=== PATIENT | male | born 1965 | race Two or more races ===

== ENCOUNTER 2020-06-26 09:28 | Outpatient (REF) | payer MEDICAID, SELFPAY ==
--- NOTE | 2020-06-26 09:36 | XR_ITS ---
EXAMINATION: XR SHOULDER, LEFT CLINICAL INFORMATION: Bicipital tendinitis. Shoulder pain. COMPARISON: None. TECHNIQUE: Left shoulder is imaged in 4 views. FINDINGS: There is no fracture or dislocation or destructive process. The glenohumeral joint is normal. The acromioclavicular alignment is normal. There are no visible rotator cuff calcifications. Again, there is a small spur anterior oblique medial humeral neck possibly related to the inferior glenohumeral ligament attachment. IMPRESSION: No acute abnormality when compared with prior study 10/08/2017. No visible rotator cuff calcifications.
--- NOTE | 2020-06-26 09:37 | XR_ITS ---
EXAMINATION: XR ELBOW, LEFT CLINICAL INFORMATION: Pain. COMPARISON: None. TECHNIQUE: AP, lateral, and oblique views of the left elbow. FINDINGS: There is no fracture, dislocation, or elbow capsular effusion. There is normal bony mineralization. No joint narrowing or erosive change. There is small medial epicondylar spur and borderline spurring coronoid process and olecranon. IMPRESSION: 1. No joint narrowing or erosive change. No visible capsular effusion. 2. Small spur medial epicondyle. Borderline spurring olecranon and coronoid.
== END 2020-06-26 09:29 | disposition home or self-care (01) ==
LOC: HO.XRAY 09:28
PROVIDERS: Visit Provider Family Medicine
DX: M75.22 Bicipital tendinitis, left shoulder (principal); M25.522 Pain in left elbow
CPT/HCPCS: 73030; 73070

== ENCOUNTER 2020-07-24 09:00 | Outpatient (RCR) | payer MEDICAID, SELFPAY | END 2020-08-16 13:33 | disposition other institution (70) | LOC: HO.PT 09:00 | PROVIDERS: PCP Emergency Medicine; Visit Provider Family Medicine | DX: M75.22 Bicipital tendinitis, left shoulder (principal) | CPT/HCPCS: 20610; 97033; 97110; 97112; 97140; 97162; 99202; J1040 ==

== ENCOUNTER 2020-07-29 15:27 | Outpatient (REF) | payer MEDICAID, SELFPAY | END 2020-07-29 15:28 | disposition home or self-care (01) | LOC: HO.LAB 15:27 | PROVIDERS: Visit Provider Internal Medicine | DX: Z20.828 Contact with and (suspected) exposure to other viral communicable diseases (principal) | CPT/HCPCS: C9803; U0003 ==

== ENCOUNTER 2021-03-25 10:27 | Emergency (ER) | payer MEDICAID, SELFPAY ==
[2021-03-25 11:12] VITALS: BP 141/83; PULSE 70; RESP 18; O2SAT 98; BMI 34.4
[2021-03-25] MEDS: Ketorolac Tromethamine 15 MG/ML VIAL IM ×2 (12:22→12:23)
[2021-03-25] MEDS: Acetaminophen 325 MG TABLET 650 MG PO (12:22)
[2021-03-25] MEDS: Lidocaine 4 % Patch ADH..PATCH 1 PATCH TRANSDERMA (12:22)
--- NOTE | 2021-03-25 12:29 | ED.BACK ---
HPI - Back Pain/Injury General Chief Complaint: Back Pain/Injury Stated Complaint: Rt side rib pain Time Seen by Provider: 03/25/21 11:56 Source: patient Mode of arrival: ambulatory History of Present Illness HPI Narrative: 55-year-old male with a past medical history of anxiety, depression, diabetes, hypertension, presenting to the ED complaining of right flank pain x2 days. Admits pain is worse with movement. Denies known injury/trauma or fall. Denies radiation of pain, dysuria/hematuria, numbness, tingling, weakness, urinary incontinence/retention Denies taking anything for pain at home MD elicited complaint: back pain Related Data Home Medications Medication Instructions Recorded Confirmed clotrimazole 1 % topical cream 1 applic TOPICAL BID 07/24/20 diclofenac sodium 1 % topical gel 2 g TOPICAL QID 07/24/20 docusate sodium 100 mg capsule 100 mg PO DAILY 07/24/20 ketotifen fumarate 0.025 % (0.035 1 drp OPHTHALMIC (EYE) BID 07/24/20 %) eye drops lidocaine 1.8 % topical patch 1 patch TOPICAL DAILY 07/24/20 lisinopril 10 1 tab PO DAILY 07/24/20 mg-hydrochlorothiazide 12.5 mg tablet metformin 500 mg tablet 500 mg PO DAILY 07/24/20 sertraline 100 mg tablet 100 mg PO DAILY 07/24/20 triamcinolone acetonide 0.1 % 1 applic TOPICAL DAILY 07/24/20 topical cream witch luis 20 % topical pads pad TOPICAL 07/24/20 Previous Rx's Medication Instructions Recorded aspirin 81 mg tablet,delayed 81 mg PO DAILY 90 Days #90 tab 02/10/21 release acetaminophen [Tylenol Extra 500 mg PO Q6H PRN #20 tab 03/25/21 Strength] cyclobenzaprine 5 mg PO Q8H PRN 5 Days #14 tab 03/25/21 lidocaine [Lidoderm] 1 patch TOPICAL DAILY PRN #30 ea 03/25/21 MDD remove after 12 hours naproxen 500 mg PO BID PRN 10 Days #20 tab 03/25/21 Allergies Allergy/AdvReac Type Severity Reaction Status Date / Time Penicillins [PENICILLINS] Allergy Intermediate RASH Verified 07/24/20 10:28 penicillin G Allergy Unknown rash Verified 07/24/20 10:28 Review of Systems Review of Systems: Constitutional: No Fever, No Chills, No Fatigue, No Malaise Cardiovascular: No Chest Pain, No SOB Gastrointestinal: No Nausea, No Vomiting, No Diarrhea, No Abdominal pain Genitourinary: No Dysuria, No Urinary Frequency, No Hematuria, No Urinary Incontinence/retention, + Flank Pain, No Urinary Flow Changes, No Hesitancy Musculoskeletal: + joint pain, No Myalgias, No Joint Swelling Skin: No Skin Lesions, No rash Neuro: No Weakness, No Numbness, No Paresthesias Yes all other systems are reviewed and are negative Neurologic: Denies Sensory deficit (Neuro) [facility] Past Medical History Attestation statement: The following information was validated with the patient. Medical History (Updated 03/25/21 @ 13:17 by ELHAM Chapa) Anxiety C. difficile colitis Depression Diabetes HTN (hypertension) Intertrigo Social History Social History (Updated 07/24/20 @ 10:32 by Isela Blancas PA-C) Advance Directives: Yes Advance Directives Information Provided: No Advance Directives on File: No Current occupational status: unemployed Current occupation: rt handed Physical Exam Vital Signs: Vital Signs: Last Vital Signs Pulse 70 03/25/21 11:12 Resp 18 03/25/21 11:12 BP 141/83 H 03/25/21 11:12 Pulse Ox 98 03/25/21 11:12 Body Mass Index 34.4 Const: General: cooperative, healthy appearing and no acute distress Orientation/consciousness: patient oriented x3 Limitations: no limitations HENMT: Head: Yes normal to inspection Ears: hearing grossly normal bilaterally General nose exam: Normal external nose present Face and sinus: Yes normal facial exam Eyes: General: appearance normal, both eyes and all related structures EOM: EOMs intact bilaterally Neck: Neck: Yes normal visual inspection Resp: Effort & Inspection: normal respiratory effort and no respiratory distress Cardio: Rate: regular rate GI: Inspection: Yes normal to inspection Palpation (GI): Soft to palpation, nontender, no guarding and not rigid : General: Yes CVA tenderness on the right Back/Spine/Pelvis: Other: No midline thoracic/lumbar spinous tenderness. + right-sided thoracic/lumbar MSK tenderness to palpation Skin: Rashes: no rashes Wounds: no wounds Neuro: Other: Ambulating with steady gait, strength intact throughout, no saddle anesthesia General: patient oriented x3 Gait exam (Neuro): Normal gait present Motor exam (neuro): 5/5 motor strength present throughout Sensory Exam: No Sensory deficit (Neuro) Extrem: General: Yes normal to inspection Course Course Course Narrative: -UA unremarkable. Pain likely musculoskeletal, results discussed with patient including worrisome signs and symptoms and strict return precautions, verbalized understanding feel safe for discharge home to follow-up with his primary care doctor MDM - Back Pain/Injury MDM Narrative Medical decision making narrative: 55-year-old male with a past medical history of anxiety, depression, diabetes, hypertension, presenting to the ED complaining of right flank pain x2 days. On exam VSS, NAD/well-appearing, no midline spinous tenderness throughout, no red flag symptoms, abdomen soft/nontender, +R CVAT on exam. Concern for MSK pain vs ? renal stone vs pyelo/UTI. Unlikely PE/PNA Plan: UA, symptomatic treatment, reassess Medical Records Attestation: I reviewed the patient's medical records. Lab Data Labs: Lab Results 03/25/21 Range/Units 12:21 Urine Color YELLOW Urine Appearance CLEAR Urine pH 6.0 (5.0-8.0) Ur Specific [place] >= 1.030 H (1.005-1.025) Urine Protein NEG (NEG-TRACE) MG/DL Urine Glucose (UA) NEG (NEG) MG/DL Urine Ketones NEG (NEG) MG/DL Urine Blood NEG (NEG) Urine Nitrite NEG (NEG) Ur Leukocyte Esterase NEG (NEG) Discharge Plan Discharge Clinical Impression: Thoracic back pain Qualifiers: Chronicity: acute Back pain laterality: right Qualified Code(s): M54.6 - Pain in thoracic spine Patient Disposition: Home, Self-Care Instructions: Back Pain (ED) Additional Instructions: Your urine was unremarkable Your pain is likely musculoskeletal Flexeril is a muscle relaxer, take at night as it makes you drowsy, do not drive, drink alcohol, or operate machinery while taking it Naproxen as an anti-inflammatory / pain medication, take with food Lidoderm patches are numbing patches, apply to painful area In addition take Tylenol at home If symptoms persist or worsen, pain becomes unbearable, you developed urinary retention or incontinence, or weakness return to the ED Prescriptions: New acetaminophen [Tylenol Extra Strength] 500 mg tablet 500 mg PO Q6H PRN (Reason: pain or fever) Qty: 20 RF: 0 lidocaine [Lidoderm] 5 % adhesive patch,medicated 1 patch topical DAILY MDD remove after 12 hours PRN (Reason: pain) Qty: 30 RF: 0 naproxen 500 mg tablet 500 mg PO BID PRN (Reason: pain) 10 Days Qty: 20 RF: 0 cyclobenzaprine 5 mg tablet 5 mg PO Q8H PRN (Reason: pain (scale score 7-10)) 5 Days Qty: 14 RF: 0 No Action aspirin [Adult Low Dose Aspirin] 81 mg tablet,delayed release (DR/EC) 81 mg PO DAILY 90 Days Qty: 90 RF: 1 Referrals: Physician,Unknown [Primary Care Provider] - 3 days
[2021-03-25 12:31] LABS: Glucose Urine UA NEG (NEG); Leukocyte Esterase Urine NEG (NEG); Nitrite Urine NEG (NEG); Specific Gravity - Urine >= 1.030 (1.005-1.025); Urine Blood NEG (NEG); Urine Ketones NEG (NEG); Urine Protein NEG (NEG-TRACE)
[2021-03-25 12:33] LABS: Appearance Urine CLEAR; Color Urine YELLOW
== END 2021-03-25 13:23 | disposition home or self-care (01) ==
PROVIDERS: Physician Assistant; Emergency Provider Emergency Medicine
DX: M54.6 Pain in thoracic spine (principal); E11.9 Type 2 diabetes mellitus without complications; I10 Essential (primary) hypertension; Z79.84 Long term (current) use of oral hypoglycemic drugs; Z79.899 Other long term (current) drug therapy
CPT/HCPCS: 81003; 96372; 99283; 99284; J1885

== ENCOUNTER 2021-06-19 14:23 | Emergency (ER) | payer MEDICAID, SELFPAY ==
--- NOTE | ~2021-06-19 | CT_ITS ---
EXAMINATION: CT ABDOMEN AND PELVIS WITH CONTRAST CLINICAL INFORMATION: Right lower quadrant pain. COMPARISON: No similar priors. TECHNIQUE: Multidetector volumetric images were obtained from the superior aspect of the liver through the pubic symphysis following administration 100 mL of Omnipaque 350 intravenous contrast. Sagittal and coronal reformatted images were obtained on the technologist's workstation. Oral contrast: No This CT examination was performed using dose optimization techniques as appropriate, variously including the following: *Automated exposure control *Adjustment of mA and/or kV according to patient size (this includes techniques or standardized protocols for targeted exams where dose is matched to indication/reason for exam; i.e. extremities or head) *Use of iterative reconstruction technique DLP: 776 mGy-cm FINDINGS: LUNG BASES: Mild dependent atelectases and mosaic attenuation of the parenchyma suggesting some degree of air trapping. No focal consolidation or pleural effusion. Mild cardiomegaly. LIVER, GALLBLADDER, AND BILIARY TREE: The attenuation of liver parenchyma is significantly decreased when compared to the attenuation of the spleen, suggesting hepatic steatosis. The liver is otherwise normal in size and shape. There are no focal liver lesions. There is no biliary ductal without dilatation. The gallbladder is unremarkable. PANCREAS: No focal abnormalities. The main pancreatic duct is nondilated. No significant peripancreatic free fluid or fat stranding. SPLEEN: Unremarkable. ADRENAL GLANDS: Unremarkable. KIDNEYS AND URETERS: In the upper pole of the right kidney there is a 1.1 cm simple cyst (61:6). There are a few other bilateral hypodensities that are too small to characterize although statistically are also likely to represent simple cysts and do not require further workup; one of these cysts has a thin peripheral calcification (image 34 of series 3) classified as Bosniak 2 and not requiring further workup. No solid lesions. No renal calculi or hydronephrosis. No significant perinephric fat stranding.. BLADDER: The wall of the urinary bladder appears slightly thickened and trabeculated, likely sequela of chronic outlet obstruction. No focal abnormalities. No significant perivesical fat stranding. GASTROINTESTINAL TRACT: The distal colon is underdistended which limits assessment wall thickening. However, accounting for these limitations there is suggestion of very mild wall thickening and subtle fat stranding in the sigmoid colon around several diverticuli raising the possibility of acute uncomplicated diverticulitis. There is no bowel obstruction. The appendix is unremarkable. There is a small hiatal hernia. The stomach and the small bowel are nondilated. ABDOMINAL WALL: Tiny fat-containing umbilical and inguinal hernias. LYMPH NODES: A few prominent inguinal lymph nodes bilaterally are uncertain significance and likely reactive. No abdominopelvic lymphadenopathy by size criteria. VASCULAR: Scattered atherosclerotic disease of the abdominal aorta which is of normal caliber. PELVIC VISCERA: Mild prostatomegaly. OSSEOUS STRUCTURES: No acute or aggressive osseous abnormalities. Multilevel generative changes. CT/CT abdomen pelvis w con IMPRESSION: Very mild fat stranding and wall thickening of the sigmoid colon surrounding several diverticuli, most consistent with mild acute uncomplicated diverticulitis. No free air or bowel obstruction. Small hiatal hernia. Normal appendix. Hepatic steatosis.
[2021-06-19 14:28] VITALS: BP 150/93; PULSE 78; RESP 18; TEMP 36.3; O2SAT 96; BMI 41.7
--- NOTE | 2021-06-19 15:38 | PC.NURSE ---
Plan for admission reviewed with PT. No active bleeding from rectum. Pt has not had a BM since arrival to the ED. VSS. Pt appears comfortable at this time. Awaiting orders from the hospitalist for guidance on diet plans.
--- NOTE | 2021-06-19 15:57 | ED.ABDPAIN ---
HPI - Abdominal Pain General Chief Complaint: Abdominal Pain Stated Complaint: RLQ pain Time Seen by Provider: 06/19/21 15:55 History of Present Illness HPI narrative: 55-year-old male presents today with having abdominal pain in the right lower quadrant. Nonradiating. The pain is been ongoing for about 3 days. No fever no chills. Positive decrease in appetite. No history of abdominal surgery in the past. No history kidney stone. Patient feel like he is urinating a lot. Patient denies coughing, congestion, upper respiratory symptoms. No leg swelling. No chest pain. No shortness breath no diaphoresis. The pain is dull in nature nonradiating Related Data Home Medications Medication Instructions Recorded Confirmed clotrimazole 1 % topical cream 1 applic TOPICAL BID 07/24/20 diclofenac sodium 1 % topical gel 2 g TOPICAL QID 07/24/20 (Arthritis Pain (diclofenac)) docusate sodium 100 mg capsule 100 mg PO DAILY 07/24/20 (Colace) ketotifen fumarate 0.025 % (0.035 1 drp OPHTHALMIC (EYE) BID 07/24/20 %) eye drops ([place]) lidocaine 1.8 % topical patch 1 patch TOPICAL DAILY 07/24/20 lisinopril 10 1 tab PO DAILY 07/24/20 mg-hydrochlorothiazide 12.5 mg tablet metformin 500 mg tablet 500 mg PO DAILY 07/24/20 sertraline 100 mg tablet 100 mg PO DAILY 07/24/20 triamcinolone acetonide 0.1 % 1 applic TOPICAL DAILY 07/24/20 topical cream witch ulis 20 % topical pads pad TOPICAL 07/24/20 (Preparation H (Witch Luis)) Previous Rx's Medication Instructions Recorded aspirin 81 mg tablet,delayed 81 mg PO DAILY 90 Days #90 tab 02/10/21 release (Adult Low Dose Aspirin) acetaminophen 500 mg tablet 500 mg PO Q6H PRN #20 tab 03/25/21 (Tylenol Extra Strength) cyclobenzaprine 5 mg tablet 5 mg PO Q8H PRN 5 Days #14 tab 03/25/21 lidocaine 5 % topical patch 1 patch TOPICAL DAILY PRN #30 ea 03/25/21 (Lidoderm) MDD remove after 12 hours naproxen 500 mg tablet 500 mg PO BID PRN 10 Days #20 tab 03/25/21 amoxicillin 875 mg-potassium 1 tab PO BID 10 Days #20 tab 06/19/21 clavulanate 125 mg tablet (Augmentin) Allergies Allergy/AdvReac Type Severity Reaction Status Date / Time Penicillins [PENICILLINS] Allergy Intermediate RASH Verified 07/24/20 10:28 penicillin G Allergy Unknown rash Verified 07/24/20 10:28 Review of Systems Review of Systems No fever no chills no cough no congestion or upper respiratory symptoms. No diaphoresis. 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 Oriented X3. No acute distress. Eyes: Pupils equal, round and reactive to light. ENT: Pharynx normal. Neck: Normal inspection. Neck supple. No lymph nodes noted. No crepitus CVS: Normal heart rate and rhythm. Pulses normal. Normal S1 and S2 Respiratory: No respiratory distress. Breath sounds normal. No Wheezing. No rales Abdomen: Soft and nontender. No rigidity. No distention. good BS x4 Skin: Skin warm and dry. Normal skin color. Normal skin turgor. Extremities: No lower extremity edema. Neurovascular intact to all extremities. No Lacerations. No Rash Neuro: Oriented X 3. No motor deficit. No sensory deficit. Moving all extermities. No slurred speech MDM - Abdominal Pain MDM Narrative Medical decision making narrative: White count is normal. Urine showed no signs of infection. CT scan of the abdomen positive for very mild diverticulitis. Will give patient Augmentin. Will have patient follow-up on an outpatient basis. In stable condition. There is multiple cysts noted in the kidney will require follow-up on an outpatient basis. The finding was discussed with patient. No abscess no perforation noted on the CT scan Lab Data Result diagrams: 06/19/21 16:44 06/19/21 16:44 Labs: Lab Results 06/19/21 06/19/21 06/19/21 Range/Units 16:38 16:44 16:44 WBC 8.0 (4.8-10.8) X10*3/uL RBC 5.38 (4.60-5.80) X10*6/uL Hgb 14.8 (14.0-18.0) g/dl Hct 46.0 (42-52) % MCV 85.5 (80-98) fL MCH 27.5 (27.0-33.0) pg MCHC 32.2 (31.0-36.0) g/dl RDW 12.9 (11.0-16.0) % Plt Count 202 (160-400) X10*3/uL MPV 12.2 (9.4-12.4) fL Immature Gran % (Auto) 0.3 (0.0-0.4) % Neut % (Auto) 66.2 (45-73) % Lymph % (Auto) 24.0 (20-40) % Edgar % (Auto) 8.2 (2-11) % Eos % (Auto) 0.8 (0-4) % Baso % (Auto) 0.5 (0-2) % Lymph # (Auto) 1.9 (1.2-4.9) X10*3/uL Edgar # (Auto) 0.7 (0.1-1.2) X10*3/uL Eos # (Auto) 0.1 (0.0-0.4) X10*3/uL Baso # (Auto) 0.0 (0.0-0.2) X10*3/uL Abs Immat Gran (auto) 0.02 (0.00-0.03) X10*3/uL Absolute Neuts (auto) 5.3 (2.0-8.3) X10*3/uL Absolute Nucleated RBC 0.000 (0.0-0.012) X10*3/uL Nucleated RBC % (auto) 0.0 (0.0-0.2) /100WBC Sodium 141 (135-145) mmol/L Potassium 3.9 (3.3-5.1) mmol/L Chloride 106 (96-108) mmol/L Carbon Dioxide 26 (22-29) mmol/L Anion Gap 13 (12-20) BUN 12 (9-16) mg/dL Creatinine 0.87 (0.5-1.4) mg/dL Estim Creat Clear Calc 110.5 Estimated GFR > 60 Random Glucose 97 (60-115) mg/dL Calcium 9.7 (8.4-10.2) mg/dL Total Bilirubin 0.3 (0.0-1.0) mg/dL Direct Bilirubin 0.2 (0.0-0.5) mg/dL AST 26 (5-37) U/L ALT 41 H (0-40) U/L Alkaline Phosphatase 80 (39-117) U/L Total Protein 7.7 (6.5-8.0) g/dL Albumin 4.6 (3.5-5.0) g/dL Lipase 27 (8-78) U/L Urine Color YELLOW Urine Appearance CLEAR Urine pH 6.0 (5.0-8.0) Ur Specific [place] >= 1.030 H (1.005-1.025) Urine Protein NEG (NEG-TRACE) MG/DL Urine Glucose (UA) NEG (NEG) MG/DL Urine Ketones NEG (NEG) MG/DL Urine Blood NEG (NEG) Urine Nitrite NEG (NEG) Ur Leukocyte Esterase NEG (NEG) Discharge Plan Discharge Clinical Impression: Diverticulitis Patient Disposition: Home, Self-Care Additional Instructions: Multiple cyst was noted in your right kidney. Follow-up required. Please discussed the finding with your primary physician. Prescriptions: New amoxicillin-pot clavulanate [Augmentin] 875-125 mg tablet 1 tab PO BID 10 Days Qty: 20 RF: 0 No Action aspirin [Adult Low Dose Aspirin] 81 mg tablet,delayed release (DR/EC) 81 mg PO DAILY 90 Days Qty: 90 RF: 1 acetaminophen [Tylenol Extra Strength] 500 mg tablet 500 mg PO Q6H PRN (Reason: pain or fever) Qty: 20 RF: 0 lidocaine [Lidoderm] 5 % adhesive patch,medicated 1 patch topical DAILY MDD remove after 12 hours PRN (Reason: pain) Qty: 30 RF: 0 naproxen 500 mg tablet 500 mg PO BID PRN (Reason: pain) 10 Days Qty: 20 RF: 0 cyclobenzaprine 5 mg tablet 5 mg PO Q8H PRN (Reason: pain (scale score 7-10)) 5 Days Qty: 14 RF: 0 Referrals: [facility] [Primary Care Provider] - 2 days [facility] Past Medical History Medical History Anxiety C. difficile colitis Depression Diabetes HTN (hypertension) Intertrigo Social History Social History Advance Directives: No Current occupational status: unemployed Current occupation: rt handed
[2021-06-19 16:00] VITALS: BP 145/92; PULSE 67; RESP 16; TEMP 36.6; O2SAT 97
[2021-06-19 16:48] LABS: MANUAL DIFF FLAG NO
[2021-06-19 16:50] LABS: Appearance Urine CLEAR; Color Urine YELLOW; Glucose Urine UA NEG (NEG); Leukocyte Esterase Urine NEG (NEG); Nitrite Urine NEG (NEG); Specific Gravity - Urine >= 1.030 (1.005-1.025); Urine Blood NEG (NEG); Urine Ketones NEG (NEG); Urine Protein NEG (NEG-TRACE)
[2021-06-19 16:57] LABS: Basophils Percent Auto 0.5 % (0-2); Eosinophils Absolute Auto 0.1 X10*3/uL (0.0-0.4); Eosinophils Percent Auto 0.8 % (0-4); Hemoglobin 14.8 g/dl (14.0-18.0); Imm Gran Abs Auto 0.02 X10*3/uL (0.00-0.03); Imm Gran Pct Auto 0.3 % (0.0-0.4); Lymphocytes Absolute Auto 1.9 X10*3/uL (1.2-4.9); Mean Corpuscular HGB Conc 32.2 g/dl (31.0-36.0); Mean Corpuscular Hemoglobin 27.5 pg (27.0-33.0); Mean Corpuscular Volume 85.5 fL (80-98); Mean Platelet Volume 12.2 fL (9.4-12.4); Monocytes Absolute Auto 0.7 X10*3/uL (0.1-1.2); Monocytes Percent Auto 8.2 % (2-11); Neutrophils Absolute Auto 5.3 X10*3/uL (2.0-8.3); Neutrophils Percent Auto 66.2 % (45-73); Platelet Count 202 X10*3/uL (160-400); Red Blood Count 5.38 X10*6/uL (4.60-5.80); Red Cell Distribution Width 12.9 % (11.0-16.0)
[2021-06-19] MEDS: HYDROmorphone HCl 0.5 MG/0.5 ML SYRINGE IVPUSH (17:04)
[2021-06-19] MEDS: ondansetron HCL 4 MG/2 ML VIAL IVPUSH (17:04)
[2021-06-19 17:06] LABS: Alanine Aminotransferase 41 U/L (0-40); Albumin Level 4.6 g/dL (3.5-5.0); Alkaline Phosphatase 80 U/L (39-117); Anion Gap 13 (12-20); Aspartate Amino Transferase 26 U/L (5-37); Bilirubin Direct 0.2 mg/dL (0.0-0.5); Bilirubin Total 0.3 mg/dL (0.0-1.0); Blood Urea Nitrogen 12 mg/dL (9-16); Calcium 9.7 mg/dL (8.4-10.2); Carbon Dioxide 26 mmol/L (22-29); Chloride 106 mmol/L (96-108); Creatinine Clr Calc Pharmacy 110.5; Estimated Glomerular Filt Rate > 60; Glucose Random 97 mg/dL (60-115); Lipase 27 U/L (8-78); Potassium 3.9 mmol/L (3.3-5.1); Sodium 141 mmol/L (135-145); Total Protein 7.7 g/dL (6.5-8.0)
[2021-06-19] MEDS: iohexoL 350 MG/ML 100 ML INFUS..BTL IV (17:27)
[2021-06-19] MEDS: Amoxicillin/Potassium Clav 875 MG TABLET PO (18:43)
[2021-06-19 18:51] VITALS: BP 160/96; PULSE 76; TEMP 36.6; O2SAT 99
== END 2021-06-19 18:57 | disposition home or self-care (01) ==
PROVIDERS: Emergency Provider Emergency Medicine Emergency Medical Services
DX: K57.92 Diverticulitis of intestine, part unspecified, without perforation or abscess without bleeding (principal); I10 Essential (primary) hypertension; E11.9 Type 2 diabetes mellitus without complications; Z88.0 Allergy status to penicillin
CPT/HCPCS: 36415; 51798; 74177; 80048; 80076; 81003; 83690; 85025; 96374; 96375; 99284; J1170; J2405; Q9967

== ENCOUNTER → 2021-08-28 12:42 | Outpatient (REF) | payer MEDICAID, SELFPAY | LOC: HO.SL 12:42 | PROVIDERS: Visit Provider Registered Nurse | DX: G47.33 Obstructive sleep apnea (adult) (pediatric) (principal); R06.83 Snoring; R40.0 Somnolence; E66.01 Morbid (severe) obesity due to excess calories | CPT/HCPCS: 95806 ==

== ENCOUNTER 2021-09-08 12:38 | Outpatient (REF) | payer MEDICAID, SELFPAY ==
[2021-09-08 13:44] LABS: Binax Internal Control QC Valid; Binax Lot number: 9864; Binax Now Covid-19 Ag Positive (Negative)
== END 2021-09-08 12:39 | disposition home or self-care (01) ==
LOC: HO.LAB 12:38
PROVIDERS: Visit Provider Internal Medicine
DX: Z20.822 Contact with and (suspected) exposure to COVID-19 (principal)
CPT/HCPCS: 36415; C9803

== ENCOUNTER 2022-01-12 15:12 | Emergency (ER) | payer MEDICAID, SELFPAY ==
--- NOTE | 2022-01-12 | ECG_ITS ---
Test Reason : CHEST PAIN Blood Pressure : / mmHG Vent. Rate : 086 BPM Atrial Rate : 086 BPM P-R Int : 150 ms QRS Dur : 098 ms QT Int : 380 ms P-R-T Axes : 046 -31 014 degrees QTc Int : 454 ms Normal sinus rhythm Left axis deviation Minimal voltage criteria for LVH, may be normal variant ( R in aVL ) Cannot rule out Anterior infarct (cited on or before 11-JUN-2018) Abnormal ECG When compared with ECG of 11-JUN-2018 17:13, T wave inversion no longer evident in Anterior leads Referred By: Generic ED Physician Electronically Signed By:PEARL RODRIGUES MD
--- NOTE | ~2022-01-12 | CT_ITS ---
EXAMINATION: CT ABDOMEN AND PELVIS WITHOUT CONTRAST CLINICAL INFORMATION: Epigastric pain. COMPARISON: CT of the abdomen and pelvis done on 06/19/2021. TECHNIQUE: Multidetector volumetric imaging was performed from the superior aspect of the liver through the pubic symphysis. Sagittal and coronal reformatted images were obtained on the technologist's workstation. This CT examination was performed using dose optimization techniques as appropriate, variously including the following: *Automated exposure control *Adjustment of mA and/or kV according to patient size (this includes techniques or standardized protocols for targeted exams where dose is matched to indication/reason for exam; i.e. extremities or head) *Use of iterative reconstruction technique DLP: 720 mGy-cm FINDINGS: LUNG BASES: The visualized lung bases are unremarkable. LIVER, GALLBLADDER, AND BILIARY TREE: The liver is normal in size, shape, and attenuation. No focal hepatic lesion or biliary ductal dilatation is present. The gallbladder is unremarkable with no evidence of radiopaque gallstones, gallbladder wall thickening, or obvious pericholecystic inflammatory changes. PANCREAS: Evaluation is technically limited due to lack of intravenous contrast. No definite pancreatic or peripancreatic inflammatory changes identified on this nonenhanced study. No significant change. SPLEEN: Unremarkable. ADRENAL GLANDS: Unremarkable. KIDNEYS AND URETERS: The kidneys are normal in size, shape, and attenuation. No hydronephrosis, hydroureter, or calculi seen. No perinephric stranding. BLADDER: Unremarkable. GASTROINTESTINAL TRACT: Colonic diverticulosis related changes are noted within the descending and sigmoid colon without any CT features of superimposed acute diverticulitis. The appendix is visualized and is unremarkable. The small bowel loops are decompressed. The stomach is decompressed. Small sliding hiatal hernia is present. ABDOMINAL WALL: No significant hernia is appreciated. LYMPH NODES: No pathologically enlarged lymphadenopathy, unchanged. VASCULAR: Unremarkable. PELVIC VISCERA: There is no pelvic mass present. No evidence of any free fluid and/or free air. OSSEOUS STRUCTURES: Multilevel degenerative disc disease, unchanged. Extensive facet degenerative arthritic changes are noted at L5-S1, unchanged. CT/CT abdomen pelvis wo con IMPRESSION: 1. No CT evidence of any acute intra-abdominal and/or intrapelvic pathology is present. 2. Specifically, no CT evidence of any acute pancreatitis is present on this nonenhanced study. 3. Small sliding hiatal hernia.
--- NOTE | ~2022-01-12 | XR_ITS ---
EXAMINATION: XR CHEST CLINICAL INFORMATION: Chest pain. COMPARISON: None TECHNIQUE: Frontal view of the chest was obtained. FINDINGS: No significant abnormality is noted involving the heart, lungs, mediastinum, bony thorax or soft tissues. XR/XR chest 1V IMPRESSION: Unremarkable examination.
[2022-01-12 15:20] VITALS: BP 141/87; PULSE 82; RESP 20; TEMP 36.4; O2SAT 98; BMI 36.0
[2022-01-12 15:38] LABS: MANUAL DIFF FLAG NO
[2022-01-12 15:44] VITALS: BP 128/86; RESP 75; TEMP 38.1; O2SAT 99
[2022-01-12 15:45] VITALS: BP 128/86; PULSE 75; RESP 20; TEMP 38.1; O2SAT 96
--- NOTE | 2022-01-12 15:45 | ED_ITS ---
HPI - Chest Pain General Chief Complaint: Chest Pain Stated Complaint: Chest pain Time Seen by Provider: 01/12/22 15:44 Source: patient Mode of arrival: ambulatory Limitations: no limitations History of Present Illness MD complaint: chest pain Onset (ago): hour(s) (10am today ) Timing of current episode: constant Prior episodes: Yes Onset: during rest Pain location: substernal and left chest Pain radiation: none Severity: moderate Quality: aching, heaviness and other (also has body aches) Relieving factors: nothing Exacerbating factors: palpation and movement Context: other (overall doesn't fell well has body aches, nauseated, weakness, very dizzy) Associated symptoms: nausea, vomiting, dyspnea, fever and cough Treatment prior to arrival: none Related Data Home Medications Medication Instructions Recorded Confirmed clotrimazole 1 % topical cream 1 applic TOPICAL BID 07/24/20 diclofenac sodium 1 % topical gel 2 g TOPICAL QID 07/24/20 (Arthritis Pain (diclofenac)) docusate sodium 100 mg capsule 100 mg PO DAILY 07/24/20 (Colace) ketotifen fumarate 0.025 % (0.035 1 drp OPHTHALMIC (EYE) BID 07/24/20 %) eye drops ([place]) lidocaine 1.8 % topical patch 1 patch TOPICAL DAILY 07/24/20 lisinopril 10 1 tab PO DAILY 07/24/20 mg-hydrochlorothiazide 12.5 mg tablet metformin 500 mg tablet 500 mg PO DAILY 07/24/20 sertraline 100 mg tablet 100 mg PO DAILY 07/24/20 triamcinolone acetonide 0.1 % 1 applic TOPICAL DAILY 07/24/20 topical cream witch luis 20 % topical pads pad TOPICAL 07/24/20 (Preparation H (Witch Luis)) Previous Rx's Medication Instructions Recorded acetaminophen 500 mg tablet 500 mg PO Q6H PRN #20 tab 03/25/21 (Tylenol Extra Strength) cyclobenzaprine 5 mg tablet 5 mg PO Q8H PRN 5 Days #14 tab 03/25/21 lidocaine 5 % topical patch 1 patch TOPICAL DAILY PRN #30 ea 03/25/21 (Lidoderm) MDD remove after 12 hours naproxen 500 mg tablet 500 mg PO BID PRN 10 Days #20 tab 03/25/21 amoxicillin 875 mg-potassium 1 tab PO BID 10 Days #20 tab 06/19/21 clavulanate 125 mg tablet (Augmentin) aspirin 81 mg tablet,delayed 81 mg PO DAILY 90 Days #90 tab 10/13/21 release (Adult Low Dose Aspirin) Allergies Allergy/AdvReac Type Severity Reaction Status Date / Time Penicillins [PENICILLINS] Allergy Intermediate RASH Verified 07/24/20 10:28 penicillin G Allergy Unknown rash Verified 07/24/20 10:28 Review of Systems Review of Systems: Constitutional : No Weight loss, pos Fever, pos Chills, pos fatigue, pos malaise ENT/Mouth : No sore throat, No Rhinorrhea Eyes: No Eye Pain, No Swelling Cardiovascular : pos Chest Pain, pos SOB, no Dyspnea on Exertion, No Orthopnea, No Edema, No Palpitations Respiratory : No Cough, No Sputum Gastrointestinal : pos Nausea, No Vomiting, No Diarrhea, No abdominal Pain, No Hematochezia, No Melena Genitourinary : No Dysuria, No Urinary Frequency Musculoskeletal : No joint pain, No Myalgias, No Joint Swelling Skin : No Skin Lesions, No rash Neuro : pos Weakness, No Numbness, pos Dizziness, No Headache Psych : No Anxiety/Panic, No Depression Heme/Lymph: No Bruising, No Lymphadenopathy Endocrine : No Polyuria, No Polydipsia All other systems reviewed and are negative [facility] Past Medical History Attestation statement: The following information was validated with the patient. Medical History Anxiety C. difficile colitis Depression Diabetes HTN (hypertension) Intertrigo Social History Social History Advance Directives: No Advance Directives Information Provided: No Current occupational status: unemployed Current occupation: rt handed Physical Exam Vital Signs: Vital Signs: Last Vital Signs Temp 98.8 F 01/12/22 18:32 Pulse 72 01/12/22 18:32 Resp 16 01/12/22 18:32 BP 129/85 01/12/22 18:32 Pulse Ox 96 01/12/22 15:45 BMI result Body Mass Index 36.0 Appearance: Alert. Oriented X3. No acute distress. Eyes: Pupils equal, round and reactive to light. ENT: Pharynx normal. Neck: Normal inspection. Neck supple. CVS: Normal heart rate and rhythm. Pulses normal. Chest: ttp along anterior chest wall reproduces pain Respiratory: No respiratory distress. Breath sounds normal. Abdomen: Soft and mild epigastric ttp no rebound or guarding Skin: Skin warm and dry. Normal skin color. Normal skin turgor. Extremities: No lower extremity edema. No calf ttp Neuro: Oriented X 3. No motor deficit. No sensory deficit. Course Course Course Narrative: lipase elevated, added on IVF, morphine for pain, CT scan for pancreatitis, LDH, ethanol repeat trop negative lipase decreased, no acute findings on CT scan ddimer negative patient up and walking feels better MDM - Chest Pain MDM Narrative Medical decision making narrative: 56 yo male with hx of HTN, DM, HLD here with c/o overall not feeling well. Patient is c/o body aches, chills, dizziness and epigastric chest pain - found to have fever here. At this time labs, troponin x 2. EKG, UA, CXR for pneumonia ordered. Swabs for COVID and flu ordered. Symptoms seem atypical for ACS and more viral in nature he already had COVID back in September dispo per results and findings. Lab Data Result diagrams: 01/12/22 15:30 01/12/22 15:30 Labs: Lab Results 01/12/22 01/12/22 01/12/22 Range/Units 15:30 15:30 15:30 WBC 9.5 (4.8-10.8) X10*3/uL RBC 5.05 (4.60-5.80) X10*6/uL Hgb 14.0 (14.0-18.0) g/dl Hct 43.5 (42.0-52.0) % MCV 86.1 (80.0-98.0) fL MCH 27.7 (27.0-33.0) pg MCHC 32.2 (31.0-36.0) g/dl RDW 12.9 (11.0-16.0) % Plt Count 257 (160-400) X10*3/uL MPV 12.3 (9.4-12.4) fL Immature Gran % (Auto) 0.6 H (0.0-0.4) % Neut % (Auto) 72.5 (45-73) % Lymph % (Auto) 16.0 L (20-40) % [place] % (Auto) 8.4 (2-11) % Eos % (Auto) 2.0 (0-4) % Baso % (Auto) 0.5 (0-2) % Lymph # (Auto) 1.5 (1.2-4.9) X10*3/uL [place] # (Auto) 0.8 (0.1-1.2) X10*3/uL Eos # (Auto) 0.2 (0.0-0.4) X10*3/uL Baso # (Auto) 0.1 (0.0-0.2) X10*3/uL Abs Immat Gran (auto) 0.06 H (0.00-0.03) X10*3/uL Absolute Neuts (auto) 6.9 (2.0-8.3) x10*3/uL Absolute Nucleated RBC 0.000 (0.0-0.012) X10*3/uL Nucleated RBC % (auto) 0.0 (0.0-0.2) /100WBC PT (9.9-13.0) SEC INR (0.9-1.1) D-Dimer High Sensitivty NG/ML Sodium 140 (135-145) mmol/L Potassium 4.8 D (3.3-5.1) mmol/L Chloride 105 (96-108) mmol/L Carbon Dioxide 26 (22-29) mmol/L Anion Gap 14 (12-20) BUN 14 (9-16) mg/dL Creatinine 0.85 (0.5-1.4) mg/dL Estim Creat Clear Calc 114.3 Estimated GFR > 60 Random Glucose 117 H (60-115) mg/dL Lactic Acid (0.5-2.0) mmol/L Calcium 9.9 (8.4-10.2) mg/dL Total Bilirubin 0.3 (0.0-1.0) mg/dL Direct Bilirubin < 0.2 (0.0-0.5) mg/dL AST 21 (5-37) U/L ALT 27 (0-40) U/L Alkaline Phosphatase 103 D (39-117) U/L Lactate Dehydrogenase 183 (118-273) U/L Troponin I High Sens < 3.5 (<3.5-35.0) ng/L Total Protein 8.1 H (6.5-8.0) g/dL Albumin 4.6 (3.5-5.0) g/dL Lipase 361 H (8-78) U/L Ethyl Alcohol mg/dL COVID-19 (DINAH) (Negative) COVID-19 Clin Com Influenza Type A (LAVONNE) (Negative) Influenza Type B (LAVONNE) (Negative) Influenza A & B Note 01/12/22 01/12/22 01/12/22 Range/Units 16:13 16:13 16:46 WBC (4.8-10.8) X10*3/uL RBC (4.60-5.80) X10*6/uL Hgb (14.0-18.0) g/dl Hct (42.0-52.0) % MCV (80.0-98.0) fL MCH (27.0-33.0) pg MCHC (31.0-36.0) g/dl RDW (11.0-16.0) % Plt Count (160-400) X10*3/uL MPV (9.4-12.4) fL Immature Gran % (Auto) (0.0-0.4) % Neut % (Auto) (45-73) % Lymph % (Auto) (20-40) % [place] % (Auto) (2-11) % Eos % (Auto) (0-4) % Baso % (Auto) (0-2) % Lymph # (Auto) (1.2-4.9) X10*3/uL [place] # (Auto) (0.1-1.2) X10*3/uL Eos # (Auto) (0.0-0.4) X10*3/uL Baso # (Auto) (0.0-0.2) X10*3/uL Abs Immat Gran (auto) (0.00-0.03) X10*3/uL Absolute Neuts (auto) (2.0-8.3) x10*3/uL Absolute Nucleated RBC (0.0-0.012) X10*3/uL Nucleated RBC % (auto) (0.0-0.2) /100WBC PT (9.9-13.0) SEC INR (0.9-1.1) D-Dimer High Sensitivty NG/ML Sodium (135-145) mmol/L Potassium (3.3-5.1) mmol/L Chloride (96-108) mmol/L Carbon Dioxide (22-29) mmol/L Anion Gap (12-20) BUN (9-16) mg/dL Creatinine (0.5-1.4) mg/dL Estim Creat Clear Calc Estimated GFR Random Glucose (60-115) mg/dL Lactic Acid (0.5-2.0) mmol/L Calcium (8.4-10.2) mg/dL Total Bilirubin (0.0-1.0) mg/dL Direct Bilirubin (0.0-0.5) mg/dL AST (5-37) U/L ALT (0-40) U/L Alkaline Phosphatase (39-117) U/L Lactate Dehydrogenase (118-273) U/L Troponin I High Sens (<3.5-35.0) ng/L Total Protein (6.5-8.0) g/dL Albumin (3.5-5.0) g/dL Lipase (8-78) U/L Ethyl Alcohol < 10 mg/dL COVID-19 (DINAH) Negative (Negative) COVID-19 Clin Com See Note Influenza Type A (LAVONNE) Negative (Negative) Influenza Type B (LAVONNE) Negative (Negative) Influenza A & B Note See Note 01/12/22 01/12/22 01/12/22 Range/Units 16:47 16:47 18:11 WBC (4.8-10.8) X10*3/uL RBC (4.60-5.80) X10*6/uL Hgb (14.0-18.0) g/dl Hct (42.0-52.0) % MCV (80.0-98.0) fL MCH (27.0-33.0) pg MCHC (31.0-36.0) g/dl RDW (11.0-16.0) % Plt Count (160-400) X10*3/uL MPV (9.4-12.4) fL Immature Gran % (Auto) (0.0-0.4) % Neut % (Auto) (45-73) % Lymph % (Auto) (20-40) % [place] % (Auto) (2-11) % Eos % (Auto) (0-4) % Baso % (Auto) (0-2) % Lymph # (Auto) (1.2-4.9) X10*3/uL [place] # (Auto) (0.1-1.2) X10*3/uL Eos # (Auto) (0.0-0.4) X10*3/uL Baso # (Auto) (0.0-0.2) X10*3/uL Abs Immat Gran (auto) (0.00-0.03) X10*3/uL Absolute Neuts (auto) (2.0-8.3) x10*3/uL Absolute Nucleated RBC (0.0-0.012) X10*3/uL Nucleated RBC % (auto) (0.0-0.2) /100WBC PT 12.3 (9.9-13.0) SEC INR 1.1 (0.9-1.1) D-Dimer High Sensitivty < 150 NG/ML Sodium (135-145) mmol/L Potassium (3.3-5.1) mmol/L Chloride (96-108) mmol/L Carbon Dioxide (22-29) mmol/L Anion Gap (12-20) BUN (9-16) mg/dL Creatinine (0.5-1.4) mg/dL Estim Creat Clear Calc Estimated GFR Random Glucose (60-115) mg/dL Lactic Acid 1.7 (0.5-2.0) mmol/L Calcium (8.4-10.2) mg/dL Total Bilirubin (0.0-1.0) mg/dL Direct Bilirubin (0.0-0.5) mg/dL AST (5-37) U/L ALT (0-40) U/L Alkaline Phosphatase (39-117) U/L Lactate Dehydrogenase (118-273) U/L Troponin I High Sens < 3.5 (<3.5-35.0) ng/L Total Protein (6.5-8.0) g/dL Albumin (3.5-5.0) g/dL Lipase (8-78) U/L Ethyl Alcohol mg/dL COVID-19 (DINAH) (Negative) COVID-19 Clin Com Influenza Type A (LAVONNE) (Negative) Influenza Type B (LAVONNE) (Negative) Influenza A & B Note 05/09/22 Range/Units 18:11 WBC (4.8-10.8) X10*3/uL RBC (4.60-5.80) X10*6/uL Hgb (14.0-18.0) g/dl Hct (42.0-52.0) % MCV (80.0-98.0) fL MCH (27.0-33.0) pg MCHC (31.0-36.0) g/dl RDW (11.0-16.0) % Plt Count (160-400) X10*3/uL MPV (9.4-12.4) fL Immature Gran % (Auto) (0.0-0.4) % Neut % (Auto) (45-73) % Lymph % (Auto) (20-40) % [place] % (Auto) (2-11) % Eos % (Auto) (0-4) % Baso % (Auto) (0-2) % Lymph # (Auto) (1.2-4.9) X10*3/uL [place] # (Auto) (0.1-1.2) X10*3/uL Eos # (Auto) (0.0-0.4) X10*3/uL Baso # (Auto) (0.0-0.2) X10*3/uL Abs Immat Gran (auto) (0.00-0.03) X10*3/uL Absolute Neuts (auto) (2.0-8.3) x10*3/uL Absolute Nucleated RBC (0.0-0.012) X10*3/uL Nucleated RBC % (auto) (0.0-0.2) /100WBC PT (9.9-13.0) SEC INR (0.9-1.1) D-Dimer High Sensitivty NG/ML Sodium (135-145) mmol/L Potassium (3.3-5.1) mmol/L Chloride (96-108) mmol/L Carbon Dioxide (22-29) mmol/L Anion Gap (12-20) BUN (9-16) mg/dL Creatinine (0.5-1.4) mg/dL Estim Creat Clear Calc Estimated GFR Random Glucose (60-115) mg/dL Lactic Acid (0.5-2.0) mmol/L Calcium (8.4-10.2) mg/dL Total Bilirubin (0.0-1.0) mg/dL Direct Bilirubin (0.0-0.5) mg/dL AST (5-37) U/L ALT (0-40) U/L Alkaline Phosphatase (39-117) U/L Lactate Dehydrogenase (118-273) U/L Troponin I High Sens (<3.5-35.0) ng/L Total Protein (6.5-8.0) g/dL Albumin (3.5-5.0) g/dL Lipase 177 H (8-78) U/L Ethyl Alcohol mg/dL COVID-19 (DINAH) (Negative) COVID-19 Clin Com Influenza Type A (LAVONNE) (Negative) Influenza Type B (LAVONNE) (Negative) Influenza A & B Note ECG Data ECG #1: Attestation: I personally reviewed and interpreted this ECG as follows: ECG interpretation date: 01/12/22 ECG interpretation time: 15:51 Interpretation: Rate: 86 Rhythm: NSR [place]: left, LVH Normal P waves. Normal GARCIA. Normal QRS complex. ST T wave : no JONNY, nonspecific qTC: normal prior studies: no acute ischemia - unchanged 2018 The study has been interpreted contemporaneously by me. Discharge Plan Discharge Clinical Impression: Atypical chest pain, Fever Patient Disposition: Home, Self-Care Instructions: Chest Pain (ED), Fever in Adults (ED) Additional Instructions: return to ED for any worsening symptoms or concerns repeat flu and covid testing in 2 days if symptoms persist Prescriptions: No Action aspirin [Adult Low Dose Aspirin] 81 mg tablet,delayed release (DR/EC) 81 mg PO DAILY 90 Days Qty: 90 0RF Rx Instructions: Obtain refills from PCP acetaminophen [Tylenol Extra Strength] 500 mg tablet 500 mg PO Q6H PRN (Reason: pain or fever) Qty: 20 0RF lidocaine [Lidoderm] 5 % adhesive patch,medicated 1 patch topical DAILY MDD remove after 12 hours PRN (Reason: pain) Qty: 30 0RF Rx Instructions: leave on most painful area for up to 12 hrs naproxen 500 mg tablet 500 mg PO BID PRN (Reason: pain) 10 Days Qty: 20 0RF cyclobenzaprine 5 mg tablet 5 mg PO Q8H PRN (Reason: pain (scale score 7-10)) 5 Days Qty: 14 0RF amoxicillin-pot clavulanate [Augmentin] 875-125 mg tablet 1 tab PO BID 10 Days Qty: 20 0RF Referrals: Yolanda Card, [employer] [Primary Care Provider] - 2 days (if not better) Print Language: Lao
[2022-01-12 15:55] LABS: Anion Gap 14 (12-20); Blood Urea Nitrogen 14 mg/dL (9-16); Calcium 9.9 mg/dL (8.4-10.2); Carbon Dioxide 26 mmol/L (22-29); Chloride 105 mmol/L (96-108); Creatinine Clr Calc Pharmacy 114.3; Estimated Glomerular Filt Rate > 60; Glucose Random 117 mg/dL (60-115); Potassium 4.8 mmol/L (3.3-5.1); Sodium 140 mmol/L (135-145)
[2022-01-12 16:00] LABS: Troponin-I High Sensitivity < 3.5 ng/L (<3.5-35.0)
[2022-01-12] MEDS: Acetaminophen 325 MG TABLET 650 MG PO (16:07)
[2022-01-12 16:13] LABS: Basophils Absolute Auto 0.1 X10*3/uL (0.0-0.2); Basophils Percent Auto 0.5 % (0-2); Eosinophils Absolute Auto 0.2 X10*3/uL (0.0-0.4); Hematocrit 43.5 % (42.0-52.0); Imm Gran Abs Auto 0.06 X10*3/uL (0.00-0.03); Imm Gran Pct Auto 0.6 % (0.0-0.4); Lymphocytes Absolute Auto 1.5 X10*3/uL (1.2-4.9); Mean Corpuscular HGB Conc 32.2 g/dl (31.0-36.0); Mean Corpuscular Hemoglobin 27.7 pg (27.0-33.0); Mean Corpuscular Volume 86.1 fL (80.0-98.0); Mean Platelet Volume 12.3 fL (9.4-12.4); Monocytes Absolute Auto 0.8 X10*3/uL (0.1-1.2); Monocytes Percent Auto 8.4 % (2-11); Neutrophils Absolute Auto 6.9 x10*3/uL (2.0-8.3); Neutrophils Percent Auto 72.5 % (45-73); Platelet Count 257 X10*3/uL (160-400); Red Blood Count 5.05 X10*6/uL (4.60-5.80); Red Cell Distribution Width 12.9 % (11.0-16.0); White Blood Count 9.5 X10*3/uL (4.8-10.8)
[2022-01-12 16:18] LABS: Alanine Aminotransferase 27 U/L (0-40); Albumin Level 4.6 g/dL (3.5-5.0); Alkaline Phosphatase 103 U/L (39-117); Aspartate Amino Transferase 21 U/L (5-37); Bilirubin Direct < 0.2 mg/dL (0.0-0.5); Bilirubin Total 0.3 mg/dL (0.0-1.0); Lipase 361 U/L (8-78); Total Protein 8.1 g/dL (6.5-8.0)
[2022-01-12 16:37] LABS: COVID-19 Test Negative (Negative); IDNOW Serial# 16C4AD1C; Influenza A Negative (Negative); Influenza B2 Negative (Negative)
[2022-01-12 16:42] LABS: Lactate Dehydrogenase 183 U/L (118-273)
[2022-01-12 16:59] VITALS: RESP 18
[2022-01-12] MEDS: 0.9 % Sodium Chloride 1,000 ML 999 ML IV (16:59)
[2022-01-12] MEDS: Morphine Sulfate 4 MG/ML CARTRIDGE IVPUSH (16:59)
[2022-01-12] MEDS: ondansetron HCL 4 MG/2 ML VIAL IVPUSH (16:59)
[2022-01-12 17:00] LABS: INTERNATIONAL NORM RATIO 1.1 (0.9-1.1); Prothrombin Time 12.3 SEC (9.9-13.0)
[2022-01-12 17:07] LABS: Lactic Acid 1.7 mmol/L (0.5-2.0)
[2022-01-12 17:08] LABS: Ethanol < 10 mg/dL
[2022-01-12 17:57] LABS: D Dimer High Sensitivity < 150 NG/ML
[2022-01-12 18:31] LABS: Lipase 177 U/L (8-78)
[2022-01-12 18:32] VITALS: BP 129/85; PULSE 72; RESP 16; TEMP 37.1
[2022-01-12 18:35] LABS: Troponin-I High Sensitivity < 3.5 ng/L (<3.5-35.0)
[2022-01-12 19:04] LABS: Appearance Urine CLEAR; Color Urine YELLOW; Glucose Urine UA NEG (NEG); Leukocyte Esterase Urine NEG (NEG); Nitrite Urine NEG (NEG); PH 5.5 (5.0-8.0); Urine Blood NEG (NEG); Urine Ketones NEG (NEG); Urine Protein NEG (NEG-TRACE)
[2022-01-12 19:32] VITALS: BP 128/83; PULSE 68; RESP 18; TEMP 36.9; O2SAT 95
== END 2022-01-12 19:33 | disposition home or self-care (01) ==
PROVIDERS: Emergency Provider Emergency Medicine; PCP Registered Nurse
DX: R07.89 Other chest pain (principal); R50.9 Fever, unspecified; I10 Essential (primary) hypertension; E11.9 Type 2 diabetes mellitus without complications; Z20.822 Contact with and (suspected) exposure to COVID-19
CPT/HCPCS: 36415; 71045; 74176; 80048; 80076; 81003; 82077; 83605; 83615; 83690; 84484; 85025; 85379; 85610; 87040; 87502; 87635; 93005; 96361; 96374; 96375; 99284; 99285; J2270; J2405

== ENCOUNTER → 2022-01-29 10:51 | Outpatient (BNVA) | payer MEDICAID, SELFPAY | PROVIDERS: PCP Registered Nurse; Referring Provider Registered Nurse; Visit Provider Nurse Practitioner | DX: D21.6 Benign neoplasm of connective and other soft tissue of trunk, unspecified (principal); R10.31 Right lower quadrant pain; R10.32 Left lower quadrant pain; K59.04 Chronic idiopathic constipation | CPT/HCPCS: 99202; 99212 ==

== ENCOUNTER 2022-01-29 18:04 | Emergency (ER) | payer MEDICAID, SELFPAY ==
--- NOTE | ~2022-01-29 | XR_ITS ---
EXAMINATION: XR CHEST CLINICAL INFORMATION: Chest pain. COMPARISON: None TECHNIQUE: Frontal view of the chest was obtained. FINDINGS: No significant abnormality is noted involving the heart, lungs, mediastinum, bony thorax or soft tissues. XR/XR chest 1V IMPRESSION: Unremarkable chest examination.
[2022-01-29 18:22] VITALS: BP 139/79; BP 167/90; PULSE 78; PULSE 80; RESP 14; TEMP 36.6; O2SAT 97; BMI 36.9
--- NOTE | 2022-01-29 18:22 | ED_ITS ---
HPI - Chest Pain General Chief Complaint: Chest Pain Stated Complaint: chest pain/back pain Time Seen by Provider: 01/29/22 18:14 Source: patient Mode of arrival: EMS Limitations: no limitations History of Present Illness HPI narrative: this is 56 yo male presented with c/o chest pain and lower back pain,he states that he was carrying a case of water,and experience chest opain with change with movement and lower back pain. Pt has been evaluated in this ED with chest pain on 01/12/22 felt to be atypical .No radiation of the CP,no diaphoresis,reproducible with movement and palpation. MD complaint: chest pain Onset (ago): hour(s) (2) Timing of current episode: still present Pain location: substernal Pain radiation: none Severity: mild Quality: aching Relieving factors: nothing Exacerbating factors: other (movement) Risk Factors Coronary artery disease risk factors: diabetes and hypertension Thoracic aortic dissection risk factors: none Related Data Home Medications Medication Instructions Recorded Confirmed clotrimazole 1 % topical cream 1 applic TOPICAL BID 07/24/20 diclofenac sodium 1 % topical gel 2 g TOPICAL QID 07/24/20 (Arthritis Pain (diclofenac)) docusate sodium 100 mg capsule 100 mg PO DAILY 07/24/20 (Colace) ketotifen fumarate 0.025 % (0.035 1 drp OPHTHALMIC (EYE) BID 07/24/20 %) eye drops (Alaway) lidocaine 1.8 % topical patch 1 patch TOPICAL DAILY 07/24/20 lisinopril 10 1 tab PO DAILY 07/24/20 mg-hydrochlorothiazide 12.5 mg tablet metformin 500 mg tablet 500 mg PO DAILY 07/24/20 sertraline 100 mg tablet 100 mg PO DAILY 07/24/20 triamcinolone acetonide 0.1 % 1 applic TOPICAL DAILY 07/24/20 topical cream witch luis 20 % topical pads pad TOPICAL 07/24/20 (Preparation H (Witch Luis)) amlodipine 10 mg tablet 10 mg PO QAM 01/29/22 aripiprazole 30 mg tablet 30 mg PO BEDTIME 01/29/22 duloxetine 60 mg capsule,delayed 60 mg PO QAM 01/29/22 release mirtazapine 45 mg tablet 45 mg PO BEDTIME 01/29/22 omeprazole 20 mg capsule,delayed 20 mg PO QAM 01/29/22 release rosuvastatin 20 mg tablet 20 mg PO BEDTIME 01/29/22 Previous Rx's Medication Instructions Recorded acetaminophen 500 mg tablet 500 mg PO Q6H PRN #20 tab 03/25/21 (Tylenol Extra Strength) cyclobenzaprine 5 mg tablet 5 mg PO Q8H PRN 5 Days #14 tab 03/25/21 lidocaine 5 % topical patch 1 patch TOPICAL DAILY PRN #30 ea 03/25/21 (Lidoderm) MDD remove after 12 hours naproxen 500 mg tablet 500 mg PO BID PRN 10 Days #20 tab 03/25/21 aspirin 81 mg tablet,delayed 81 mg PO DAILY 90 Days #90 tab 10/13/21 release (Adult Low Dose Aspirin) methylcellulose (laxative) 500 mg 1,000 mg PO DAILY #60 tab 01/29/22 tablet (Citrucel) peg 3350-electrolytes 236 240 ml PO Q10M 1 Days #4000 ml 01/29/22 gram-22.74 gram-6.74 gram-5.86 gram solution (Golytely) sennosides 8.6 mg capsule (senna) 17.2 mg PO BEDTIME 30 Days #60 cap 01/29/22 Allergies Allergy/AdvReac Type Severity Reaction Status Date / Time Penicillins [PENICILLINS] Allergy Intermediate RASH Verified 01/29/22 11:17 penicillin G Allergy Unknown rash Verified 01/29/22 11:17 Review of Systems Review of Systems: Yes Unobtainable due to mental status Constitutional: Constitutional: Reports no additional constitutional complaints ENT: Reports system reviewed and no additional complaints, except as documented Cardiovascular: Cardiovascular: Reports no additional cardiovascular complaints Musculoskeletal: Musculoskeletal: Reports no additional musculoskeletal complaints [facility] Past Medical History Medical History Anxiety C. difficile colitis Depression Diabetes HTN (hypertension) Intertrigo Social History Social History Alcohol intake: former Use of substances other than those prescribed or required for medical reasons: No Advance Directives: No Advance Directives Information Provided: No Current occupational status: unemployed Current occupation: rt handed Physical Exam Vital Signs: Vital Signs: Last Vital Signs Temp 97.8 F 01/29/22 18:34 Pulse 62 01/29/22 21:03 Resp 16 01/29/22 21:03 BP 125/73 01/29/22 21:03 Pulse Ox 96 01/29/22 21:03 BMI result Body Mass Index 36.9 Const: General: cooperative, comfortable, no acute distress, well developed, alert and awake Nutritional Appearance: average body habitus and well nourished Orientation/consciousness: patient oriented x3 Limitations: no limitations HEENT: Head: Yes normal to inspection Ears: hearing grossly normal bilaterally General nose exam: Normal external nose present Face and sinus: Yes normal facial exam Mouth: Normal oral and palatal mucosa present Neck: Neck: Yes normal visual inspection and Yes full ROM Thyroid: Thyroid normal Carotids: normal carotid upstroke Chest: Chest palpation & inspection: normal inspection of the chest Resp: Effort & Inspection: normal respiratory effort Auscultation: clear to auscultation bilaterally Cardio: Jugular venous distension: no JVD Rate: regular rate Rhythm: regular rhythm GI: Inspection: Yes normal to inspection Palpation (GI): not firm, nontender and no guarding Skin: General skin exam: no rashes or lesions noted Lesions: no lesions Rashes: no rashes Neuro: General: patient oriented x3 Cranial nerves: Yes CN's II-XII intact bilaterally Motor exam (neuro): 5/5 motor strength present throughout Extrem: General: Yes normal to inspection, Yes full ROM and Yes capillary refill normal Course Reevaluation(s) Reevaluation #1: delta troponin negative,pain reproducible will d/c pt home to follow up to PCP. MDM - Chest Pain Lab Data Attestation: I reviewed the patient's lab results. Result diagrams: 01/29/22 18:29 01/29/22 18:29 Labs: Lab Results 01/29/22 01/29/22 01/29/22 Range/Units 18:29 18:29 18:29 WBC 6.0 (4.8-10.8) X10*3/uL RBC 4.78 (4.60-5.80) X10*6/uL Hgb 13.0 L (14.0-18.0) g/dl Hct 41.7 L (42.0-52.0) % MCV 87.2 (80.0-98.0) fL MCH 27.2 (27.0-33.0) pg MCHC 31.2 (31.0-36.0) g/dl RDW 13.1 (11.0-16.0) % Plt Count 233 (160-400) X10*3/uL MPV 11.4 (9.4-12.4) fL Immature Gran % (Auto) 0.2 (0.0-0.4) % Neut % (Auto) 53.0 (45-73) % Lymph % (Auto) 25.0 (20-40) % Evangeline % (Auto) 15.9 H (2-11) % Eos % (Auto) 5.2 H (0-4) % Baso % (Auto) 0.7 (0-2) % Lymph # (Auto) 1.5 (1.2-4.9) X10*3/uL Evangeline # (Auto) 1.0 (0.1-1.2) X10*3/uL Eos # (Auto) 0.3 (0.0-0.4) X10*3/uL Baso # (Auto) 0.0 (0.0-0.2) X10*3/uL Abs Immat Gran (auto) 0.01 (0.00-0.03) X10*3/uL Absolute Neuts (auto) 3.2 (2.0-8.3) x10*3/uL Absolute Nucleated RBC 0.000 (0.0-0.012) X10*3/uL Nucleated RBC % (auto) 0.0 (0.0-0.2) /100WBC Sodium 142 (135-145) mmol/L Potassium 4.4 (3.3-5.1) mmol/L Chloride 107 (96-108) mmol/L Carbon Dioxide 27 (22-29) mmol/L Anion Gap 12 (12-20) BUN 9 (9-16) mg/dL Creatinine 0.83 (0.5-1.4) mg/dL Estim Creat Clear Calc 118.6 Estimated GFR > 60 Random Glucose 133 H (60-115) mg/dL Calcium 9.6 (8.4-10.2) mg/dL Total Bilirubin 0.3 (0.0-1.0) mg/dL AST 22 (5-37) U/L ALT 29 (0-40) U/L Alkaline Phosphatase 97 (39-117) U/L Troponin I High Sens < 3.5 (<3.5-35.0) ng/L Total Protein 7.3 (6.5-8.0) g/dL Albumin 4.2 (3.5-5.0) g/dL 01/29/22 Range/Units 21:01 WBC (4.8-10.8) X10*3/uL RBC (4.60-5.80) X10*6/uL Hgb (14.0-18.0) g/dl Hct (42.0-52.0) % MCV (80.0-98.0) fL MCH (27.0-33.0) pg MCHC (31.0-36.0) g/dl RDW (11.0-16.0) % Plt Count (160-400) X10*3/uL MPV (9.4-12.4) fL Immature Gran % (Auto) (0.0-0.4) % Neut % (Auto) (45-73) % Lymph % (Auto) (20-40) % Evangeline % (Auto) (2-11) % Eos % (Auto) (0-4) % Baso % (Auto) (0-2) % Lymph # (Auto) (1.2-4.9) X10*3/uL Evangeline # (Auto) (0.1-1.2) X10*3/uL Eos # (Auto) (0.0-0.4) X10*3/uL Baso # (Auto) (0.0-0.2) X10*3/uL Abs Immat Gran (auto) (0.00-0.03) X10*3/uL Absolute Neuts (auto) (2.0-8.3) x10*3/uL Absolute Nucleated RBC (0.0-0.012) X10*3/uL Nucleated RBC % (auto) (0.0-0.2) /100WBC Sodium (135-145) mmol/L Potassium (3.3-5.1) mmol/L Chloride (96-108) mmol/L Carbon Dioxide (22-29) mmol/L Anion Gap (12-20) BUN (9-16) mg/dL Creatinine (0.5-1.4) mg/dL Estim Creat Clear Calc Estimated GFR Random Glucose (60-115) mg/dL Calcium (8.4-10.2) mg/dL Total Bilirubin (0.0-1.0) mg/dL AST (5-37) U/L ALT (0-40) U/L Alkaline Phosphatase (39-117) U/L Troponin I High Sens < 3.5 (<3.5-35.0) ng/L Total Protein (6.5-8.0) g/dL Albumin (3.5-5.0) g/dL ECG Data ECG #1: Pacemaker model: NSR [address]-t changes Discharge Plan Discharge Clinical Impression: Chest pain Patient Disposition: Home, Self-Care Instructions: Chest Pain (DC) Additional Instructions: follow up with Primary Care physician Tomorrow,return if worse any concern Prescriptions: No Action aspirin [Adult Low Dose Aspirin] 81 mg tablet,delayed release (DR/EC) 81 mg PO DAILY 90 Days Qty: 90 0RF Rx Instructions: Obtain refills from PCP acetaminophen [Tylenol Extra Strength] 500 mg tablet 500 mg PO Q6H PRN (Reason: pain or fever) Qty: 20 0RF lidocaine [Lidoderm] 5 % adhesive patch,medicated 1 patch topical DAILY MDD remove after 12 hours PRN (Reason: pain) Qty: 30 0RF Rx Instructions: leave on most painful area for up to 12 hrs naproxen 500 mg tablet 500 mg PO BID PRN (Reason: pain) 10 Days Qty: 20 0RF cyclobenzaprine 5 mg tablet 5 mg PO Q8H PRN (Reason: pain (scale score 7-10)) 5 Days Qty: 14 0RF metformin 500 mg tablet 500 mg PO DAILY 0RF sertraline 100 mg tablet 100 mg PO DAILY 0RF clotrimazole 1 % cream 1 applic topical BID 0RF triamcinolone acetonide 0.1 % cream 1 applic topical DAILY 0RF docusate sodium [Colace] 100 mg capsule 100 mg PO DAILY 0RF Preparation H (Witch Luis) 20 % pads, medicated topical 0RF ketotifen fumarate [Alaway] 0.025 % (0.035 %) drops 1 drp ophthalmic (eye) BID 0RF Rx Instructions: administer at least 8 hours apart lidocaine 1.8 % adhesive patch,medicated 1 patch topical DAILY 0RF Rx Instructions: leave on most painful area for up to 12 hrs diclofenac sodium [Arthritis Pain (diclofenac)] 1 % gel 2 g topical QID 0RF Rx Instructions: apply to single elbow, wrist or hand; for hand includes palm/fingers/back of hand lisinopril-hydrochlorothiazide 10-12.5 mg tablet 1 tab PO DAILY 0RF peg 3350-electrolytes [Golytely] 236-22.74-6.74 -5.86 gram recon soln 240 ml PO Q10M 1 Days Qty: 4000 0RF Rx Instructions: until fecal effluent is clear; do not exceed a total volume of 2,000 mL rosuvastatin 20 mg tablet 20 mg PO BEDTIME 0RF omeprazole 20 mg capsule,delayed release(DR/EC) 20 mg PO QAM 0RF aripiprazole 30 mg tablet 30 mg PO BEDTIME 0RF mirtazapine 45 mg tablet 45 mg PO BEDTIME 0RF amlodipine 10 mg tablet 10 mg PO QAM 0RF duloxetine 60 mg capsule,delayed release(DR/EC) 60 mg PO QAM 0RF senna 8.6 mg capsule 17.2 mg PO BEDTIME 30 Days Qty: 60 1RF Citrucel 500 mg tablet 1,000 mg PO DAILY Qty: 60 6RF Referrals: Physician,Unknown J [Primary Care Provider] - 5 days
--- NOTE | 2022-01-29 18:27 | PC.NURSE ---
Pt is grijalva x 4 speaking in full sentences without difficultly breathing. Pt cc of right sided chest wall pain after carrying a case of water up 6 floors. Pt states that pain changes with movement and breathing in. Pt is also complaining of lower back pain across his lower back. Pt denies any diffculty breathing, nausea or vomiting. Pt denies falling or LOC.
--- NOTE | 2022-01-29 18:28 | ECG_ITS ---
Test Reason : chest pain Blood Pressure : / mmHG Vent. Rate : 070 BPM Atrial Rate : 070 BPM P-R Int : 144 ms QRS Dur : 100 ms QT Int : 416 ms P-R-T Axes : 034 -28 -05 degrees QTc Int : 449 ms Normal sinus rhythm Minimal voltage criteria for LVH, may be normal variant ( R in aVL ) Cannot rule out Anterior infarct (cited on or before 11-JUN-2018) Abnormal ECG When compared with ECG of 12-JAN-2022 15:15, No significant change was found Referred By: Jason Smith Electronically Signed By:Abel Gregory
[2022-01-29 18:32] LABS: MANUAL DIFF FLAG NO
[2022-01-29 18:34] VITALS: BP 139/79; PULSE 80; RESP 14; TEMP 36.6; O2SAT 97
[2022-01-29] MEDS: Ibuprofen 800 MG TABLET PO (18:39)
[2022-01-29 18:40] LABS: Basophils Percent Auto 0.7 % (0-2); Eosinophils Absolute Auto 0.3 X10*3/uL (0.0-0.4); Eosinophils Percent Auto 5.2 % (0-4); Hematocrit 41.7 % (42.0-52.0); Imm Gran Abs Auto 0.01 X10*3/uL (0.00-0.03); Imm Gran Pct Auto 0.2 % (0.0-0.4); Lymphocytes Absolute Auto 1.5 X10*3/uL (1.2-4.9); Mean Corpuscular HGB Conc 31.2 g/dl (31.0-36.0); Mean Corpuscular Hemoglobin 27.2 pg (27.0-33.0); Mean Corpuscular Volume 87.2 fL (80.0-98.0); Mean Platelet Volume 11.4 fL (9.4-12.4); Monocytes Percent Auto 15.9 % (2-11); Neutrophils Absolute Auto 3.2 x10*3/uL (2.0-8.3); Platelet Count 233 X10*3/uL (160-400); Red Blood Count 4.78 X10*6/uL (4.60-5.80); Red Cell Distribution Width 13.1 % (11.0-16.0)
[2022-01-29 18:53] LABS: Alanine Aminotransferase 29 U/L (0-40); Albumin Level 4.2 g/dL (3.5-5.0); Alkaline Phosphatase 97 U/L (39-117); Anion Gap 12 (12-20); Aspartate Amino Transferase 22 U/L (5-37); Bilirubin Total 0.3 mg/dL (0.0-1.0); Blood Urea Nitrogen 9 mg/dL (9-16); Calcium 9.6 mg/dL (8.4-10.2); Carbon Dioxide 27 mmol/L (22-29); Chloride 107 mmol/L (96-108); Creatinine Clr Calc Pharmacy 118.6; Estimated Glomerular Filt Rate > 60; Glucose Random 133 mg/dL (60-115); Potassium 4.4 mmol/L (3.3-5.1); Sodium 142 mmol/L (135-145); Total Protein 7.3 g/dL (6.5-8.0)
[2022-01-29 18:58] LABS: Troponin-I High Sensitivity < 3.5 ng/L (<3.5-35.0)
[2022-01-29 21:03] VITALS: BP 125/73; PULSE 62; RESP 16; O2SAT 96
[2022-01-29 21:34] LABS: Troponin-I High Sensitivity < 3.5 ng/L (<3.5-35.0)
== END 2022-01-29 22:48 | disposition home or self-care (01) ==
PROVIDERS: Emergency Provider Emergency Medicine
DX: R07.9 Chest pain, unspecified (principal); E11.9 Type 2 diabetes mellitus without complications; I10 Essential (primary) hypertension; F41.9 Anxiety disorder, unspecified; Z79.02 Long term (current) use of antithrombotics/antiplatelets; Z79.899 Other long term (current) drug therapy; Z79.82 Long term (current) use of aspirin
CPT/HCPCS: 36415; 71045; 80053; 84484; 85025; 93005; 99283; 99284

== ENCOUNTER 2022-02-23 11:03 | Emergency (ER) | payer MEDICAID, SELFPAY ==
--- NOTE | 2022-02-23 | ECG_ITS ---
Test Reason : chest pain Blood Pressure : / mmHG Vent. Rate : 071 BPM Atrial Rate : 071 BPM P-R Int : 154 ms QRS Dur : 100 ms QT Int : 410 ms P-R-T Axes : 031 -30 -03 degrees QTc Int : 445 ms Normal sinus rhythm Left axis deviation Minimal voltage criteria for LVH, may be normal variant ( R in aVL ) Cannot rule out Anterior infarct (cited on or before 11-JUN-2018) Abnormal ECG When compared with ECG of 29-JAN-2022 18:25, No significant change was found Referred By: Enedina Garcia Electronically Signed By:PEARL RODRIGUES MD
--- NOTE | ~2022-02-23 | CT_ITS ---
EXAMINATION: CT HEAD WITHOUT CONTRAST CLINICAL INFORMATION: Headache COMPARISON: Previous head CT most recent June 2018 TECHNIQUE: Contiguous axial imaging was performed from the skull base to vertex without intravenous administration of contrast. This CT examination was performed using dose optimization techniques as appropriate, variously including the following: *Automated exposure control *Adjustment of mA and/or kV according to patient size (this includes techniques or standardized protocols for targeted exams where dose is matched to indication/reason for exam; i.e. extremities or head) *Use of iterative reconstruction technique DLP: 747 mGy-cm FINDINGS: There is no evidence of acute intracranial hemorrhage or territorial infarction. No abnormal mass effect or midline shift is seen. Parada to white matter differentiation is well preserved. No extra-axial fluid collections are identified. The ventricles are normal in size. There is no abnormal attenuation within the brain parenchyma. The osseous structures and soft tissues are normal. The mastoid air cells and visualized portions of the paranasal sinuses are well aerated. CT/CT head/brain wo con IMPRESSION: Unremarkable exam.
--- NOTE | ~2022-02-23 | XR_ITS ---
EXAMINATION: XR CHEST CLINICAL INFORMATION: Chest pain. COMPARISON: 01/29/2022 chest radiograph. TECHNIQUE: 2 views of the chest were obtained. FINDINGS: No significant abnormality is noted involving the heart, lungs, mediastinum, bony thorax or soft tissues. XR/XR chest 2V IMPRESSION: No acute cardiopulmonary process.
[2022-02-23 11:12] VITALS: BP 131/81; PULSE 74; RESP 20; TEMP 36.6; O2SAT 98; BMI 37.5
[2022-02-23 11:33] LABS: MANUAL DIFF FLAG NO
[2022-02-23 11:34] LABS: Basophils Percent Auto 0.5 % (0-2); Eosinophils Absolute Auto 0.1 X10*3/uL (0.0-0.4); Eosinophils Percent Auto 1.5 % (0-4); Hematocrit 42.8 % (42.0-52.0); Hemoglobin 13.8 g/dl (14.0-18.0); Imm Gran Abs Auto 0.03 X10*3/uL (0.00-0.03); Imm Gran Pct Auto 0.4 % (0.0-0.4); Lymphocytes Absolute Auto 1.3 X10*3/uL (1.2-4.9); Lymphocytes Percent Auto 17.8 % (20-40); Mean Corpuscular HGB Conc 32.2 g/dl (31.0-36.0); Mean Corpuscular Hemoglobin 27.5 pg (27.0-33.0); Mean Corpuscular Volume 85.3 fL (80.0-98.0); Mean Platelet Volume 11.3 fL (9.4-12.4); Monocytes Absolute Auto 0.6 X10*3/uL (0.1-1.2); Monocytes Percent Auto 8.1 % (2-11); Neutrophils Absolute Auto 5.4 x10*3/uL (2.0-8.3); Neutrophils Percent Auto 71.7 % (45-73); Platelet Count 240 X10*3/uL (160-400); Red Blood Count 5.02 X10*6/uL (4.60-5.80); White Blood Count 7.5 X10*3/uL (4.8-10.8)
[2022-02-23 11:50] LABS: COVID-19 Test Negative (Negative); IDNOW Serial# 55D5AD1C
[2022-02-23 11:54] LABS: Troponin-I High Sensitivity < 3.5 ng/L (<3.5-35.0)
[2022-02-23 11:57] LABS: Alanine Aminotransferase 33 U/L (0-40); Albumin Level 4.5 g/dL (3.5-5.0); Alkaline Phosphatase 93 U/L (39-117); Anion Gap 12 (12-20); Aspartate Amino Transferase 22 U/L (5-37); Bilirubin Total 0.6 mg/dL (0.0-1.0); Blood Urea Nitrogen 13 mg/dL (9-16); Calcium 9.6 mg/dL (8.4-10.2); Carbon Dioxide 27 mmol/L (22-29); Chloride 105 mmol/L (96-108); Estimated Glomerular Filt Rate > 60; Glucose Random 127 mg/dL (60-115); Potassium 4.2 mmol/L (3.3-5.1); Sodium 140 mmol/L (135-145); Total Protein 7.6 g/dL (6.5-8.0)
[2022-02-23 11:59] VITALS: RESP 18
[2022-02-23] MEDS: Morphine Sulfate 4 MG/ML CARTRIDGE IVPUSH (11:59)
[2022-02-23] MEDS: ondansetron HCL 4 MG/2 ML VIAL IVPUSH (11:59)
[2022-02-23] MEDS: 0.9 % Sodium Chloride 1,000 ML 999 ML IV (11:59)
[2022-02-23 12:40] LABS: D Dimer High Sensitivity < 150 NG/ML
--- NOTE | 2022-02-23 13:49 | PC.NURSE ---
discussed negative work up with pa. reports pt did report si with a plan to jump out of a plane but he doesnt own a plane... pt reports hx of depression with known therapist. plan for pt to see crisis.
--- NOTE | 2022-02-23 14:08 | PC.NURSE ---
pt changed over- belongings placed in washing machine closet in pod. pa aware. plan for pt to see crisis.
--- NOTE | 2022-02-23 14:12 | PC.NURSE ---
smart sheet sent to [facility]
[2022-02-23 14:15] VITALS: BP 144/85; PULSE 63; RESP 18; TEMP 36.7; O2SAT 98
--- NOTE | 2022-02-23 14:17 | ED_ITS ---
HPI - General Adult General Chief complaint: General Medical Stated complaint: CRISIS,SI,CALM/COOP, C/O LEONE PER EMS Time Seen by Provider: 02/23/22 11:39 Source: patient Mode of arrival: EMS Limitations: no limitations History of Present Illness HPI narrative: 56-year-old male presents with suicidal ideation with a plan, 3 days of chest pain, 3 days of headache. Patient was seen here January 12 for chest pain and January 29 for chest pain. On January 29 he had a negative delta troponin, the pain was reproducible with m ovement. Patient had COVID in September. He has a past medical history of diabetes non insulin dependent, hypertension, hyperlipidemia. Today patient states he has intermittent chest pain that is currently an 8/10, that is pleuritic in nature. Denies cough, fever, trauma or heavy lifting. Patient's headache started 3 days ago, it was gradual in onset. Patient has no neck pain, no visual changes, no gait disturbance, no nausea or vomiting. Headache is currently an 8/10. Patient is suicidal, his plan is to jump out of an airplane but he does not own an airplane. He has never been suicidal before, never been admitted for psychiatric hospitalization, does not see a psychiatrist. Patient is on medication for depression that is prescribed by his PCP, he does see a therapist. Denies drug or alcohol use, denies homicidal ideation or auditory or visual hallucinations Related Data Home Medications Medication Instructions Recorded Confirmed metformin 500 mg tablet 1,000 mg PO BID 07/24/20 amlodipine 10 mg tablet 10 mg PO QAM 01/29/22 aripiprazole 30 mg tablet 30 mg PO BEDTIME 01/29/22 omeprazole 20 mg capsule,delayed 20 mg PO QAM 01/29/22 release rosuvastatin 20 mg tablet 20 mg PO BEDTIME 01/29/22 desvenlafaxine succinate 50 mg 1 tab PO QAM 02/23/22 tablet,extended release 24 hr duloxetine 20 mg capsule,delayed 1 cap PO QAM 02/23/22 release lisinopril 10 mg tablet 1 tab PO QPM 02/23/22 loratadine 10 mg tablet 1 tab PO DAILY 02/23/22 mirtazapine 45 mg tablet 1 tab PO BEDTIME 02/23/22 olopatadine 0.2 % eye drops 1 drp ophthalmic (eye) DAILY 02/23/22 prazosin 5 mg capsule 4 cap PO BEDTIME 02/23/22 02/23/22 Previous Rx's Medication Instructions Recorded aspirin 81 mg tablet,delayed 81 mg PO DAILY 90 days #90 tabs 10/13/21 release (Adult Low Dose Aspirin) methylcellulose (laxative) 500 mg 1,000 mg PO DAILY #60 tabs 01/29/22 tablet (Citrucel) sennosides 8.6 mg capsule (senna) 17.2 mg PO BEDTIME constipation 30 01/29/22 days #60 caps Allergies Allergy/AdvReac Type Severity Reaction Status Date / Time Penicillins [PENICILLINS] Allergy Intermediate RASH Verified 01/29/22 11:17 penicillin G Allergy Unknown rash Verified 01/29/22 11:17 Review of Systems Constitutional: Constitutional: Denies body ache(s), Denies chills, Denies fatigue, Denies fever(s), Reports headache(s), Denies malaise and Denies weakness Eyes: Eyes: Denies diplopia ENT: Reports Normal hearing present, Denies vertigo, Denies dizziness, Denies otalgia, Reports headache(s), Denies mouth pain, Denies post nasal drip, Denies sinus pain, Denies sinus pressure, Denies sore throat and Denies throat swelling Cardiovascular: Cardiovascular: Reports chest pain, Denies syncope, Denies leg edema, Denies lightheadedness, Denies Loss of Consciousness, Denies palpitati ons and Denies dyspnea Respiratory: Respiratory: Denies chest congestion, Denies cough and Denies dyspnea Gastrointestinal: Gastrointestinal: Reports abdominal pain, Denies hematochezia, Denies constipation, Denies diarrhea and Denies vomiting Musculoskeletal: Musculoskeletal: Reports no additional musculoskeletal complaints Neurologic: Reports Normal hearing present, Denies Abnormal speech present, Denies confusion, Denies vertigo, Denies dizziness, Denies syncope, Reports headache(s), Denies Sensory deficit (Neuro) and Denies weakness Psychiatric: Psychiatric: Denies anxiety, Denies confusion, Denies depression, Denies visual hallucinations, Denies hallucinations, Denies homicidal ideation and Reports suicidal ideation Endocrine: Endocrine: Denies fatigue and Denies palpitations Allergic/Immunologic: Allergic/Immunologic: Denies throat swelling PMFSH Past Medical History Medical History Anxiety C. difficile colitis Depression Diabetes HTN (hypertension) Intertrigo Social History Social History Alcohol intake: former Advance Directives: No Advance Directives Information Provided: No Current occupational status: unemployed Current occupation: rt handed Physical Exam ED Vital Signs: Vital Signs - 24 hr 02/23/22 11:12 02/23/22 11:59 02/23/22 14:15 Temperature 97.8 F 98.1 F Pulse Rate 74 63 Respiratory Rate 20 18 18 Blood Pressure 131/81 144/85 H Pulse Oximetry 98 98 Oxygen Delivery Method Room Air Room Air BMI result Body Mass Index 37.5 Const Other: patient is anxious and tearful General: alert and awake; No confusion Nutritional Appearance: well nourished Orientation/consciousness: patient oriented x3 and No confusion Limitations: no limitations HENMT Head: Yes normal to inspection, Yes normocephalic and Yes atraumatic Ears: hearing grossly normal bilaterally, external ears normal, TM's normal bilaterally and EAC's normal General nose exam: Normal external nose present Face and sinus: Yes normal facial exam and Yes sinuses nontender Mouth: Normal oral and palatal mucosa present Throat: Yes posterior oropharynx normal Eyes Conjunctivae: conjunctivae normal Pupils: Equal, round and reactive pupils present EOM: EOMs intact bilaterally and No Nystagmus present Neck Neck: Yes full ROM, Yes no lymphadenopathy, Yes no meningeal signs and Yes supple Resp Effort & Inspection: normal respiratory effort and able to speak in complete sentences Auscultation: clear to auscultation bilaterally, no crackles, no rales, no rhonchi and no wheezes Cardio Rate: regular rate Rhythm: regular rhythm Heart sounds: S1 normal heart sound present and S2 normal heart sound present GI Inspection: Yes normal to inspection Palpation (GI): Soft to palpation, nontender, no guarding and not rigid Percussion: Yes normal to percussion Auscultation: normal bowel sounds Skin General skin exam: no rashes or lesions noted Neuro General: patient oriented x3, Normal light touch and pain sensation, no meningeal signs and No confusion Cranial nerves: Yes CN's II-XII intact bilaterally, Yes Facial sensation intact/muscles of mastication intact, Yes Equal, round and reactive pupils present, Yes Normal accommodation reflex present, Yes Bilaterally intact EOM present, Yes Nystagmus not present, Yes Normal facial strength present, Yes Midline tongue present, Yes Normal hearing present, Yes Ability to bilaterally rotate head present, Yes Ability to bilaterally elevate shoulders present and No Nystagmus present Cognition (Neuro): normal cognition Speech: No Abnormal speech present Gait exam (Neuro): Normal gait present Motor exam (neuro): 5/5 motor strength present throughout and Pronator motor function not present Sensory Exam: No Sensory deficit (Neuro) Deep tendon reflexes (DTR's): Right brachioradialis reflex intensity grade: 1+, Left brachioradialis reflex intensity grade: 1+, Right patellar reflex intensity grade: 1+ and Left patellar reflex intensity grade: 1+ Coordination: [id number] test normal and [id number] test normal Romberg Test: Negative Pupils: Normal pupillary reactivity/response: bilateral Extrem General: Yes normal to inspection and Yes full ROM Psych Appearance: grossly normal Affect: normal affect Attitude: cooperative Thought process: Normal thought process present Course Course Course Narrative: 56-year-old male presents with suicidal ideation, chest pain, headache. Patient has a nonischemic EKG, troponin is negative, D-dimer is negative, labs unremarkable, chest x-ray shows nothing acute, patient is COVID negative. Gave morphine, Zofran, fluids. Awaiting urine drug screen and head CT. Patient completely neurologically intact. Patient tearful and anxious no red flag signs or symptoms with headache, but will get head CT. Lois from care team states they are understaffed and patient may need to wait until the morning to be seen by crisis Reevaluation(s) Reevaluation #1: patient placed into physician observation at this time, pending crisis and behavioral health evaluation Time: 16:17 Reevaluation #2: FINDINGS: There is no evidence of acute intracranial hemorrhage or territorial infarction. No abnormal mass effect or midline shift is seen. Parada to white matter differentiation is well preserved. No extra-axial fluid collections are identified. The ventricles are normal in size. There is no abnormal attenuation within the brain parenchyma. The osseous structures and soft tissues are normal. The mastoid air cells and visualized portions of the paranasal sinuses are well aerated. CT/CT head/brain wo con IMPRESSION: Unremarkable exam. Medical Decision Making Lab Data Result diagrams: 02/23/22 11:27 02/23/22 11:27 Labs: Lab Results 02/23/22 02/23/22 02/23/22 Range/Units 11:27 11:27 11:27 WBC 7.5 (4.8-10.8) X10*3/uL RBC 5.02 (4.60-5.80) X10*6/uL Hgb 13.8 L (14.0-18.0) g/dl Hct 42.8 (42.0-52.0) % MCV 85.3 (80.0-98.0) fL MCH 27.5 (27.0-33.0) pg MCHC 32.2 (31.0-36.0) g/dl RDW 13.0 (11.0-16.0) % Plt Count 240 (160-400) X10*3/uL MPV 11.3 (9.4-12.4) fL Immature Gran % (Auto) 0.4 (0.0-0.4) % Neut % (Auto) 71.7 (45-73) % Lymph % (Auto) 17.8 L (20-40) % [place] % (Auto) 8.1 (2-11) % Eos % (Auto) 1.5 (0-4) % Baso % (Auto) 0.5 (0-2) % Lymph # (Auto) 1.3 (1.2-4.9) X10*3/uL [place] # (Auto) 0.6 (0.1-1.2) X10*3/uL Eos # (Auto) 0.1 (0.0-0.4) X10*3/uL Baso # (Auto) 0.0 (0.0-0.2) X10*3/uL Abs Immat Gran (auto) 0.03 (0.00-0.03) X10*3/uL Absolute Neuts (auto) 5.4 (2.0-8.3) x10*3/uL Absolute Nucleated RBC 0.000 (0.0-0.012) X10*3/uL Nucleated RBC % (auto) 0.0 (0.0-0.2) /100WBC D-Dimer High Sensitivty NG/ML Sodium 140 (135-145) mmol/L Potassium 4.2 (3.3-5.1) mmol/L Chloride 105 (96-108) mmol/L Carbon Dioxide 27 (22-29) mmol/L Anion Gap 12 (12-20) BUN 13 (9-16) mg/dL Creatinine 0.92 (0.5-1.4) mg/dL Estim Creat Clear Calc 108.0 Estimated GFR > 60 Random Glucose 127 H (60-115) mg/dL Calcium 9.6 (8.4-10.2) mg/dL Total Bilirubin 0.6 (0.0-1.0) mg/dL AST 22 (5-37) U/L ALT 33 (0-40) U/L Alkaline Phosphatase 93 (39-117) U/L Troponin I High Sens < 3.5 (<3.5-35.0) ng/L Total Protein 7.6 (6.5-8.0) g/dL Albumin 4.5 (3.5-5.0) g/dL Ethyl Alcohol mg/dL COVID-19 (DINAH) (Negative) COVID-19 Clin Com 02/23/22 02/23/22 02/23/22 Range/Units 11:27 11:29 12:15 WBC (4.8-10.8) X10*3/uL RBC (4.60-5.80) X10*6/uL Hgb (14.0-18.0) g/dl Hct (42.0-52.0) % MCV (80.0-98.0) fL MCH (27.0-33.0) pg MCHC (31.0-36.0) g/dl RDW (11.0-16.0) % Plt Count (160-400) X10*3/uL MPV (9.4-12.4) fL Immature Gran % (Auto) (0.0-0.4) % Neut % (Auto) (45-73) % Lymph % (Auto) (20-40) % [place] % (Auto) (2-11) % Eos % (Auto) (0-4) % Baso % (Auto) (0-2) % Lymph # (Auto) (1.2-4.9) X10*3/uL [place] # (Auto) (0.1-1.2) X10*3/uL Eos # (Auto) (0.0-0.4) X10*3/uL Baso # (Auto) (0.0-0.2) X10*3/uL Abs Immat Gran (auto) (0.00-0.03) X10*3/uL Absolute Neuts (auto) (2.0-8.3) x10*3/uL Absolute Nucleated RBC (0.0-0.012) X10*3/uL Nucleated RBC % (auto) (0.0-0.2) /100WBC D-Dimer High Sensitivty < 150 NG/ML Sodium (135-145) mmol/L Potassium (3.3-5.1) mmol/L Chloride (96-108) mmol/L Carbon Dioxide (22-29) mmol/L Anion Gap (12-20) BUN (9-16) mg/dL Creatinine (0.5-1.4) mg/dL Estim Creat Clear Calc Estimated GFR Random Glucose (60-115) mg/dL Calcium (8.4-10.2) mg/dL Total Bilirubin (0.0-1.0) mg/dL AST (5-37) U/L ALT (0-40) U/L Alkaline Phosphatase (39-117) U/L Troponin I High Sens (<3.5-35.0) ng/L Total Protein (6.5-8.0) g/dL Albumin (3.5-5.0) g/dL Ethyl Alcohol < 10 mg/dL COVID-19 (DINAH) Negative (Negative) COVID-19 Clin Com See Note ECG Data Interpretation: EKG shows sinus at a rate of 71, KS interval 154, QRS 100, QTC is not prolonged at 04:45, left axis deviation, no ST depressions or elevations, no T-wave abnormalities Discharge Plan Discharge Clinical Impression: Suicidal ideation Patient Disposition: Still a Patient Prescriptions: No Action aspirin [Adult Low Dose Aspirin] 81 mg tablet,delayed release (DR/EC) 81 mg PO DAILY 90 Days Qty: 90 0RF Rx Instructions: Obtain refills from PCP prazosin 5 mg capsule 4 cap PO BEDTIME lisinopril 10 mg tablet 1 tab PO QPM mirtazapine 45 mg tablet 1 tab PO BEDTIME loratadine 10 mg tablet 1 tab PO DAILY duloxetine 20 mg capsule,delayed release(DR/EC) 1 cap PO QAM olopatadine 0.2 % drops 1 drp ophthalmic (eye) DAILY desvenlafaxine succinate 50 mg tablet extended release 24 hr 1 tab PO QAM metformin 500 mg tablet 1,000 mg PO BID rosuvastatin 20 mg tablet 20 mg PO BEDTIME omeprazole 20 mg capsule,delayed release(DR/EC) 20 mg PO QAM aripiprazole 30 mg tablet 30 mg PO BEDTIME amlodipine 10 mg tablet 10 mg PO QAM senna 8.6 mg capsule 17.2 mg PO BEDTIME 30 Days Qty: 60 1RF Citrucel 500 mg tablet 1,000 mg PO DAILY Qty: 60 6RF
[2022-02-23 15:28] LABS: Ethanol < 10 mg/dL
--- NOTE | 2022-02-23 17:01 | PHA.MEDREC ---
Pharmacy Consult ? Medication Reconciliation Pharmacy has completed the medication reconciliation.
[2022-02-23 17:57] LABS: Amphetamine Screen Urine Not Detected (Not Detect); Barbiturates, Urine Not Detected (Not Detect); Benzodiazepines Screen Urine Not Detected (Not Detect); Cannabinoid Screen Urine Not Detected (Not Detect); Cocaine Screen Urine Not Detected (Not Detect); Fentanyl, urine Not Detected (Not Detect); Opiate Screen Urine POSITIVE (Not Detect); Phencyclidine Screen Urine Not Detected (Not Detect)
[2022-02-24 07:49] VITALS: BP 144/78; PULSE 74; RESP 16; TEMP 36.3; O2SAT 98
== END 2022-02-24 10:37 | disposition home or self-care (01) ==
PROVIDERS: Physician Assistant; Emergency Provider Emergency Medicine; PCP Registered Nurse
DX: R07.89 Other chest pain (principal); R45.851 Suicidal ideations; R51.9 Headache, unspecified; Z20.822 Contact with and (suspected) exposure to COVID-19; Z79.899 Other long term (current) drug therapy
CPT/HCPCS: 36415; 70450; 71046; 80053; 80307; 82077; 84484; 85025; 85379; 87635; 93005; 96374; 96375; 99284; J2270; J2405

== ENCOUNTER → 2022-03-05 10:51 | Outpatient (BNVA) | payer MEDICAID, SELFPAY | PROVIDERS: PCP Registered Nurse; Visit Provider Nurse Practitioner | DX: K59.04 Chronic idiopathic constipation (principal); D12.6 Benign neoplasm of colon, unspecified | CPT/HCPCS: 99212 ==

== ENCOUNTER 2022-04-27 08:12 | Outpatient (REF) | payer MEDICAID, SELFPAY ==
--- NOTE | ~2022-04-27 | XR_ITS ---
EXAMINATION: XR KNEE, LEFT CLINICAL INFORMATION: Pain. COMPARISON: Radiograph of the left knee 09/09/2018. TECHNIQUE: Four views of the left knee. FINDINGS: No acute fracture or malalignment. Mild tricompartmental degenerative osteoarthritis. No erosions. No chondrocalcinosis. Small joint effusion. XR/XR knee LT 4V IMPRESSION: No acute fracture or malalignment. Mild tricompartmental degenerative osteoarthritis, unchanged.
== END 2022-04-27 08:13 | disposition home or self-care (01) ==
LOC: HO.XRAY 08:12
PROVIDERS: PCP Registered Nurse; Visit Provider Registered Nurse
DX: M25.562 Pain in left knee (principal)
CPT/HCPCS: 73564

== ENCOUNTER 2022-06-24 10:00 | Outpatient (RCR) | payer MEDICAID, SELFPAY ==
[2022-05-26 09:08] VITALS: BP 147/86; PULSE 71; O2SAT 95
== END 2022-06-24 10:52 | disposition home or self-care (01) ==
LOC: HO.PT 10:00
PROVIDERS: PCP Registered Nurse; Visit Provider Registered Nurse
DX: M25.562 Pain in left knee (principal)
CPT/HCPCS: 97110; 97140; 97162; 97530

== ENCOUNTER 2022-07-15 07:52 | Day surgery (SDC) | payer MEDICAID, SELFPAY ==
[2022-07-09 15:54] VITALS: BMI 35.9
--- NOTE | 2022-07-14 08:13 | P.CONAN_ITS ---
Documented by User: Yulissa Steen NP 07/14/22 08:14 HPI - Anesthesia Eval Consult details Narrative: 56yo M for Colonoscopy PMFSH Active Problems Active Problems: All Active Problems (Updated 02/25/22 @ 00:01 by James Long) Tubular adenoma of colon (Acute) Bilateral lower abdominal cramping (Acute) Chronic idiopathic constipation (Acute) Rotator cuff impingement syndrome of left shoulder (Acute) Past Medical History Medical History Anxiety C. difficile colitis Depression Diabetes HTN (hypertension) Intertrigo Social History Social History Alcohol intake: former Patient Tobacco Use Status: Never used Tobacco Are you DNR?: No Advance Directives: No Advance Directives Information Provided: Yes Recently lost weight without trying: No Current occupational status: unemployed Current occupation: rt handed Meds Allergies Allergy/AdvReac Type Severity Reaction Status Date / Time Penicillins [PENICILLINS] Allergy Intermediate RASH Verified 01/29/22 11:17 Home Medications Medication Instructions Recorded Confirmed Last Taken Type metformin 500 mg tablet 1,000 mg PO BID 07/24/20 02/23/22 02/23/22 History amlodipine 10 mg tablet 10 mg PO QAM 01/29/22 02/23/22 02/23/22 History aripiprazole 30 mg tablet 30 mg PO BEDTIME 01/29/22 02/23/22 02/22/22 History omeprazole 20 mg capsule,delayed 20 mg PO QAM 01/29/22 02/23/22 02/23/22 History release rosuvastatin 20 mg tablet 20 mg PO BEDTIME 01/29/22 02/23/22 02/22/22 History desvenlafaxine succinate 50 mg 1 tab PO QAM 02/23/22 02/23/22 02/23/22 History tablet,extended release 24 hr duloxetine 20 mg capsule,delayed 1 cap PO QAM 02/23/22 02/23/22 02/23/22 History release lidocaine 5 % topical patch 1 patch topical DAILY PRN Pain 02/23/22 02/23/22 02/23/22 History (Lidoderm) lisinopril 10 mg tablet 1 tab PO BEDTIME 02/23/22 02/23/22 02/22/22 History loratadine 10 mg tablet 1 tab PO DAILY 02/23/22 02/23/22 02/23/22 History mirtazapine 45 mg tablet 1 tab PO BEDTIME 02/23/22 02/23/22 02/22/22 History olopatadine 0.2 % eye drops 1 drp ophthalmic (eye) DAILY 02/23/22 02/23/22 02/23/22 History prazosin 5 mg capsule 4 cap PO BEDTIME 02/23/22 02/23/22 02/22/22 History Exam Exam Date and Time: July 14, 2022 0813 Height,Weight and Vital Signs: Height 5 ft 7 in Weight 103.873 kg Pertinent Lab Results Pertinent Lab Results: Laboratory Tests 02/23/22 02/23/22 11:27 11:27 WBC 7.5 Hgb 13.8 L Hct 42.8 Plt Count 240 Sodium 140 Potassium 4.2 Chloride 105 Carbon Dioxide 27 BUN 13 Creatinine 0.92 Narrative Narrative: EKG 02/2022 Vent. Rate : 071 BPM ? ? Atrial Rate : 071 BPM ?? P-R Int : 154 ms? QRS Dur : 100 ms ? ? QT Int : 410 ms ? ? ? P-R-T Axes : 031 -30 -03 degrees ?? QTc Int : 445 ms ? Normal sinus rhythm Left axis deviation Minimal voltage criteria for LVH, may be normal variant ( R in aVL ) Cannot rule out Anterior infarct (cited on or before 11-JUN-2018) Abnormal ECG When compared with ECG of 29-JAN-2022 18:25, No significant change was found Assessment and Plan Assessment Anesthesia Assessment: Chart Reviewed Documented by User: Margie Whittaker MD 07/15/22 09:39 [facility] Past Medical History Medical History Anxiety C. difficile colitis Depression Diabetes HTN (hypertension) Intertrigo Functional capacity: independent ambulation Surgical History History of Problems with Anesthesia: Yes Social History Social History Alcohol intake: former Patient Tobacco Use Status: Never used Tobacco Are you DNR?: No Advance Directives: No Advance Directives Information Provided: Yes Recently lost weight without trying: No Current occupational status: unemployed Current occupation: rt handed Meds Allergies Allergy/AdvReac Type Severity Reaction Status Date / Time Penicillins [PENICILLINS] Allergy Intermediate RASH Verified 01/29/22 11:17 Home Medications Medication Instructions Recorded Confirmed Last Taken Type metformin 500 mg tablet 1,000 mg PO BID 07/24/20 02/23/22 02/23/22 History amlodipine 10 mg tablet 10 mg PO QAM 01/29/22 02/23/22 02/23/22 History aripiprazole 30 mg tablet 30 mg PO BEDTIME 01/29/22 02/23/22 02/22/22 History omeprazole 20 mg capsule,delayed 20 mg PO QAM 01/29/22 02/23/22 02/23/22 History release rosuvastatin 20 mg tablet 20 mg PO BEDTIME 01/29/22 02/23/22 02/22/22 History desvenlafaxine succinate 50 mg 1 tab PO QAM 02/23/22 02/23/22 02/23/22 History tablet,extended release 24 hr duloxetine 20 mg capsule,delayed 1 cap PO QAM 02/23/22 02/23/22 02/23/22 History release lidocaine 5 % topical patch 1 patch topical DAILY PRN Pain 02/23/22 02/23/22 02/23/22 History (Lidoderm) lisinopril 10 mg tablet 1 tab PO BEDTIME 02/23/22 02/23/22 02/22/22 History loratadine 10 mg tablet 1 tab PO DAILY 02/23/22 02/23/22 02/23/22 History mirtazapine 45 mg tablet 1 tab PO BEDTIME 02/23/22 02/23/22 02/22/22 History olopatadine 0.2 % eye drops 1 drp ophthalmic (eye) DAILY 02/23/22 02/23/22 02/23/22 History prazosin 5 mg capsule 4 cap PO BEDTIME 02/23/22 02/23/22 02/22/22 History Exam Airway Mallampati Class: III TM Dist: >3cm Neck ROM: Full Heart: RRR Assessment and Plan Final Anesthetic Review History of Problems with Anesthesia: Yes NPO: No ASA Class: III Final Preanesthetic Review: No Changes in Pt Med Stat, Meds/Allgs Chart Reviewed, Consent Obtained/Reviewed and Anes Risks/Benef Reviewed Patient Risk: Low Procedure Risk: Low Anesthetic Plan Anesthetic Plan: MAC: Disposition: Standard PACU
--- NOTE | 2022-07-15 07:09 | MHC.SHP ---
Pre-Procedural Eval Section A Date of Service: 07/15/22 Section B Chief Complaint: screening, FH of CRC Relevant Family History (Specify if Yes): Yes Relevant Social History: None Present Medications: see Short Stay Collaborative assessment Medical History: Significant History (Anxiety C. difficile colitis Depression Diabetes HTN (hypertension) Intertrigo) History of Previous Operations: Relevant previous surgery/procedure and date(s) (colonoscopy) Allergies: Allergies Allergy/AdvReac Type Severity Reaction Status Date / Time Penicillins [PENICILLINS] Allergy Intermediate RASH Verified 01/29/22 11:17 Review of Systems Sugical H&P ROS: Negative: Constitution, Cardiovascular, Respiratory, Neurological, Psychiatric, Hem-Onc, Allergic/Immunologic, Gastrointestinal, Genitourinary, Musculoskeletal, Integumentary, Endocrine and Eyes/Ears/Nose/Throat Exam Surgical H&P Exam: Normal: HEENT, Normal: Heart, Normal: Lungs, Normal: Extremities, Normal: Abdomen, Normal: Skin and Normal: Neurological Plan Diagnosis/Plan: Unchanged I have reviewed the history and physical and performed a pertinent physical examination on my patient. No changes have occurred unless specified.
[2022-07-15 08:17] VITALS: BP 116/75; PULSE 70; RESP 18; TEMP 36.6; O2SAT 97
[2022-07-15 08:28] LABS: Glucose, Whole Blood 126 mg/dL (60-115)
[2022-07-15] MEDS: Lactated Ringers 1,000 ML 100 ML IVCONT (08:33)
--- NOTE | 2022-07-15 09:23 | P.OP_ITS ---
Operative Note Operative Note Date of Service: 07/15/22 Narrative: Operative Information Procedure Description: Colonoscopy Indication: screening Anesthesia: MAC COLONOSCOPY Instrument: Olympus variable stiffness ADULT scope 190L Colonoscopy Monitoring: Vital signs and clinical assessment, continuous EKG monitoring, Pulse oximetry, Carbon Dioxide monitoring and blood pressure monitoring were done throughout the procedure. Colon withdrawal time was 7 minutes. Procedure: The patient was placed in the left lateral decubitis position and pre-procedure medications were administered. After a digital rectal examination of the ano-rectum, the video colonoscope was inserted into the rectum and advanced through the colon to the cecum/TI. The colonoscope was slowly withdrawn in a retrograde panoramic fashion and the colon mucosa was carefully examined including a retroflexed view of the rectum. Findings and interventions are described below. Procedure Difficulty: easy Findings: Terminal Ileum-normal Cecum:normal Ascending Colon: normal Transverse Colon -normal Descending Colon:normal Sigmoid Colon: moderate severe diverticulosis Rectum: Retroflexion with small internal hemorrhoids, grade I Anorectum - normal Colon preparation: [place] Bowel Preparation Scale Right colon; 2 Transverse colon: 3 Left colon; 2 (0 = Unprepared colon segment with mucosa not seen due to solid stool that cannot be cleared. 1 = Portion of mucosa of the colon segment seen, but other areas of the colon segment not well seen due to staining, residual stool and/or opaque liquid. 2 = Minor amount of residual staining, small fragments of stool and/or opaque liquid, but mucosa of colon segment seen well. 3 = Entire mucosa of colon segment seen well with no residual staining, small fragments of stool or opaque liquid) Impression and Post Procedure Diagnosis: internal hemorrhoids diverticular disease Plan: High fiber diet leaflet Avoid straining at stool, epsom salts and sitz bath, anusol supps or cream Repeat Colonoscopy in 5 years due to FH of CRC or earlier if clinically indicated Above findings were reviewed with the patient and relevant handouts were provided if indicated.
[2022-07-15 09:52] VITALS: BP 109/65; PULSE 70; RESP 18; TEMP 36.6; O2SAT 95
[2022-07-15 10:07] VITALS: BP 114/74; PULSE 62; RESP 16; TEMP 36.6; O2SAT 96
--- NOTE | 2022-07-15 12:51 | HO.POSTANES ---
Post Anesthesia Evaluation Post Anesthesia Evaluation Vital Signs: Vital Signs Temp Pulse Resp BP Pulse Ox O2 Del Method 07/15/22 10:07 98 F 62 16 114/74 96 Room Air, Simple Mask 07/15/22 09:52 98 F 70 18 109/65 95 Room Air, Simple Mask 07/15/22 08:17 98 F 70 18 116/75 97 Room Air Anesthesia: Monitored and General LMA Mental Status: Awake Pain Control: Satisfactory Nausea/Vomiting: None Hydration: Adequate Anesthesia-Related Issues: No Anes. Related Issues
== END 2022-07-15 10:55 | disposition home or self-care (01) ==
PROVIDERS: Visit Provider Internal Medicine Gastroenterology
PROC: 0DJD8ZZ Inspection of Lower Intestinal Tract, Via Natural or Artificial Opening Endoscopic (ICD-10-PCS; CPT 45378; principal; 2022-07-15 09:20)
DX: Z12.11 Encounter for screening for malignant neoplasm of colon (principal); Z80.0 Family history of malignant neoplasm of digestive organs; Z86.010 Personal history of colon polyps; K57.30 Diverticulosis of large intestine without perforation or abscess without bleeding; K64.0 First degree hemorrhoids; K59.04 Chronic idiopathic constipation; I10 Essential (primary) hypertension; E11.9 Type 2 diabetes mellitus without complications; L30.4 Erythema intertrigo; F41.1 Generalized anxiety disorder; Z79.84 Long term (current) use of oral hypoglycemic drugs; Z79.899 Other long term (current) drug therapy; Z88.0 Allergy status to penicillin
CPT/HCPCS: 45378; 82947

== ENCOUNTER → 2022-07-29 09:38 | Outpatient (BNVA) | payer MEDICAID, SELFPAY | PROVIDERS: PCP Registered Nurse; Visit Provider Nurse Practitioner | DX: K59.04 Chronic idiopathic constipation (principal); D12.6 Benign neoplasm of colon, unspecified; R10.31 Right lower quadrant pain; R10.32 Left lower quadrant pain; Z98.890 Other specified postprocedural states | CPT/HCPCS: 99212 ==

== ENCOUNTER 2022-10-07 19:00 | Emergency (ER) | payer MEDICAID, SELFPAY ==
[2022-10-07 19:45] VITALS: BP 161/100; PULSE 77; RESP 18; TEMP 36.7; O2SAT 97; BMI 37.5
--- NOTE | 2022-10-07 19:45 | ED_ITS ---
HPI - General Adult General Chief complaint: General Medical <Sheri Flynn NP - Last Filed: 10/07/22 19:48> Stated complaint: elevated bp and blood sugar <Sheri Flynn NP - Last Filed: 10/07/22 19:48> Time Seen by Provider: 10/08/22 00:02 <Sheri Flynn NP - Last Filed: 10/07/22 19:48> Source: patient <Estrella Smart MD - Last Filed: 10/08/22 00:16> Mode of arrival: ambulatory <Estrella Smart MD - Last Filed: 10/08/22 00:16> Limitations: no limitations <Estrella Smart MD - Last Filed: 10/08/22 00:16> History of Present Illness HPI narrative: Patient comes in the emergency room complaining of high blood pressure and high blood sugar. Patient is asymptomatic. Blood pressure 161/60 on arrival, on recheck 130 systolic. Blood glucose 201 <Estrella Smart MD - Last Filed: 10/08/22 00:16> Related Data Home medications: Home Medications Medication Instructions Recorded Confirmed metformin 500 mg tablet 1,000 mg PO BID 07/24/20 02/23/22 amlodipine 10 mg tablet 10 mg PO QAM 01/29/22 02/23/22 aripiprazole 30 mg tablet 30 mg PO BEDTIME 01/29/22 02/23/22 omeprazole 20 mg capsule,delayed 20 mg PO QAM 01/29/22 02/23/22 release desvenlafaxine succinate 50 mg 1 tab PO QAM 02/23/22 02/23/22 tablet,extended release 24 hr duloxetine 20 mg capsule,delayed 1 cap PO QAM 02/23/22 02/23/22 release lidocaine 5 % topical patch 1 patch topical DAILY PRN Pain 02/23/22 02/23/22 (Lidoderm) lisinopril 10 mg tablet 1 tab PO BEDTIME 02/23/22 02/23/22 loratadine 10 mg tablet 1 tab PO DAILY 02/23/22 02/23/22 mirtazapine 45 mg tablet 1 tab PO BEDTIME 02/23/22 02/23/22 olopatadine 0.2 % eye drops 1 drp ophthalmic (eye) DAILY 02/23/22 02/23/22 prazosin 5 mg capsule 4 cap PO BEDTIME 02/23/22 02/23/22 alcohol swabs (Alcohol Prep Pads) 0 pad topical DAILY 07/29/22 aspirin 81 mg tablet,delayed 81 mg PO QPM 07/29/22 release blood sugar diagnostic (FreeStyle #10 ea 07/29/22 Lite Strips) lancets 33 gauge (TRUEplus Lancets) #100 ea 07/29/22 rosuvastatin 40 mg tablet 40 mg PO BEDTIME 07/29/22 Previous Rx's Medication Instructions Recorded methylcellulose (laxative) 500 mg 1,000 mg PO DAILY #60 tabs 01/29/22 tablet (Citrucel) sennosides 8.6 mg capsule (senna) 17.2 mg PO BEDTIME constipation 30 07/29/22 days #60 caps <Sheri Flynn NP - Last Filed: 10/07/22 19:48> Allergies/adverse reactions: Allergies Allergy/AdvReac Type Severity Reaction Status Date / Time Penicillins [PENICILLINS] Allergy Intermediate RASH Verified 07/29/22 09:59 <Sheri Flynn NP - Last Filed: 10/07/22 19:48> Review of Systems Review of Systems: Constitutional : No Weight loss, No Fever, No Chills, No Night Sweats, No Fatigue, No Malaise ENT/Mouth : No Hearing loss, No Ear Pain, No Nasal Congestion, No Sinus Pain, No Hoarseness, No sore throat, No Rhinorrhea, No Swallowing Difficulty Eyes: No Eye Pain, No Swelling, No Redness, No Foreign Body, No Discharge, No Vision Changes Cardiovascular : No Chest Pain, No SOB, No Dyspnea on Exertion, No Orthopnea, No Edema, No Palpitations Respiratory : No Cough, No Sputum, No Wheezing, No Smoke Exposure, No Dyspnea Gastrointestinal : No Nausea, No Vomiting, No Diarrhea, No Constipation, No abdominal Pain, No Hematochezia, No Melena Genitourinary : no irregular bleeding, No Dysuria, No Urinary Frequency, No Hematuria, No Urinary Incontinence, No Urgency, No Flank Pain, No Urinary Flow Changes, No Hesitancy Musculoskeletal : No joint pain, No Myalgias, No Joint Swelling Skin : No Skin Lesions, No rash Neuro : No Weakness, No Numbness, No Paresthesias, No Loss of Consciousness, No Dizziness, No Headache Psych : No Anxiety/Panic, No Depression, No SI/HI/AH/VH, No Social Issues, Heme/Lymph: No Bruising, No Bleeding,No Lymphadenopathy Endocrine : No Polyuria, No Polydipsia, No Temperature Intolerance <Estrella Smart MD - Last Filed: 10/08/22 00:16> [facility] Past Medical History Medical History: Medical History Anxiety C. difficile colitis Depression Diabetes HTN (hypertension) Intertrigo <Sheri Flynn NP - Last Filed: 10/07/22 19:48> Social History Social History: Social History Alcohol intake: former Patient Tobacco Use Status: Never used Tobacco Advance Directives: No Advance Directives Information Provided: Yes Current occupational status: unemployed Current occupation: rt handed <Sheri Flynn NP - Last Filed: 10/07/22 19:48> Physical Exam ED Vital Signs: Vital Signs - 24 hr 10/07/22 19:45 Temperature 98.0 F Pulse Rate 77 Respiratory Rate 18 Blood Pressure 161/100 H Pulse Oximetry 97 Oxygen Delivery Method Room Air BMI result Body Mass Index 37.5 <Sheri Flynn NP - Last Filed: 10/07/22 19:48> Vital Signs - 24 hr 10/07/22 19:45 Temperature 98.0 F Pulse Rate 77 Respiratory Rate 18 Blood Pressure 161/100 H Pulse Oximetry 97 Oxygen Delivery Method Room Air BMI result Body Mass Index 37.5 <Estrella Smart MD - Last Filed: 10/08/22 00:16> Const Other: Appearance: Alert. Oriented X3. No acute distress. Eyes: Pupils equal, round and reactive to light. ENT: Pharynx normal. Neck: Normal inspection. Neck supple. No lymph nodes noted. No crepitus CVS: Normal heart rate and rhythm. Pulses normal. Normal S1 and S2 Respiratory: No respiratory distress. Breath sounds normal. No Wheezing. No rales Abdomen: Soft and nontender. No rigidity. No distention. Skin: Skin warm and dry. Normal skin color. Normal skin turgor. Extremities: No lower extremity edema. No Lacerations. No Rash Neuro: Oriented X 3. No motor deficit. No sensory deficit. Moving all extremities. No slurred speech. CN 2 through 12 grossly intact Psych: calm, cooperative, normal affect <Estrella Smart MD - Last Filed: 10/08/22 00:16> Course Course Course Narrative: This is a rapid medical exam. Deferred additional HPI, ROS, PE to primary provider. 57 yo male with history of NIDDM, HLD, HTN, GERD here with high blood sugar (230) and elevated blood pressure today. Feels dizzy. BP triage 160/100. Will check labs, EKG. Otherwise VS <Sheri Flynn NP - Last Filed: 10/07/22 19:48> Medical Decision Making Medical Decision Making [facility] Narrative: -blood pressure 130/93. Patient's blood glucose 200. I discussed with the patient that at this time, he is asymptomatic, no need for treatment at this time. Patient feels well, instructed to follow-up with his primary care physician <Estrella Smart MD - Last Filed: 10/08/22 00:16> Lab Data [facility] Lab Attestation statement: I reviewed the patient's lab results. <Estrella Smart MD - Last Filed: 10/08/22 00:16> Result Diagrams: 10/07/22 20:13 10/07/22 20:13 <Sheri Flynn NP - Last Filed: 10/07/22 19:48> Labs: Lab Results 10/07/22 10/07/22 10/07/22 Range/Units 20:01 20:13 20:13 WBC 6.9 (4.8-10.8) X10*3/uL RBC 5.31 (4.60-5.80) X10*6/uL Hgb 14.4 (14.0-18.0) g/dl Hct 45.0 (42.0-52.0) % MCV 84.7 (80.0-98.0) fL MCH 27.1 (27.0-33.0) pg MCHC 32.0 (31.0-36.0) g/dl RDW 13.0 (11.0-16.0) % Plt Count 216 (160-400) X10*3/uL MPV 11.7 (9.4-12.4) fL Immature Gran % (Auto) 0.1 (0.0-0.4) % Neut % (Auto) 57.6 (45-73) % Lymph % (Auto) 29.0 (20-40) % [place] % (Auto) 11.0 (2-11) % Eos % (Auto) 1.7 (0-4) % Baso % (Auto) 0.6 (0-2) % Lymph # (Auto) 2.0 (1.2-4.9) X10*3/uL [place] # (Auto) 0.8 (0.1-1.2) X10*3/uL Eos # (Auto) 0.1 (0.0-0.4) X10*3/uL Baso # (Auto) 0.0 (0.0-0.2) X10*3/uL Abs Immat Gran (auto) 0.01 (0.00-0.03) X10*3/uL Absolute Neuts (auto) 4.0 (2.0-8.3) x10*3/uL Absolute Nucleated RBC 0.000 (0.0-0.012) X10*3/uL Nucleated RBC % (auto) 0.0 (0.0-0.2) /100WBC Sodium 141 (135-145) mmol/L Potassium 4.4 (3.3-5.1) mmol/L Chloride 106 (96-108) mmol/L Carbon Dioxide 27 (22-29) mmol/L Anion Gap 12 (12-20) BUN 11 (9-16) mg/dL Creatinine 1.02 (0.5-1.4) mg/dL Estim Creat Clear Calc 96.3 Estimated GFR > 60 POC Glucose 212 H (60-115) mg/dL Random Glucose 201 H (60-115) mg/dL Calcium 9.9 (8.4-10.2) mg/dL Magnesium 2.2 (1.6-2.6) mg/dL Troponin I High Sens (<3.5-35.0) ng/L 10/07/22 Range/Units 20:13 WBC (4.8-10.8) X10*3/uL RBC (4.60-5.80) X10*6/uL Hgb (14.0-18.0) g/dl Hct (42.0-52.0) % MCV (80.0-98.0) fL MCH (27.0-33.0) pg MCHC (31.0-36.0) g/dl RDW (11.0-16.0) % Plt Count (160-400) X10*3/uL MPV (9.4-12.4) fL Immature Gran % (Auto) (0.0-0.4) % Neut % (Auto) (45-73) % Lymph % (Auto) (20-40) % [place] % (Auto) (2-11) % Eos % (Auto) (0-4) % Baso % (Auto) (0-2) % Lymph # (Auto) (1.2-4.9) X10*3/uL [place] # (Auto) (0.1-1.2) X10*3/uL Eos # (Auto) (0.0-0.4) X10*3/uL Baso # (Auto) (0.0-0.2) X10*3/uL Abs Immat Gran (auto) (0.00-0.03) X10*3/uL Absolute Neuts (auto) (2.0-8.3) x10*3/uL Absolute Nucleated RBC (0.0-0.012) X10*3/uL Nucleated RBC % (auto) (0.0-0.2) /100WBC Sodium (135-145) mmol/L Potassium (3.3-5.1) mmol/L Chloride (96-108) mmol/L Carbon Dioxide (22-29) mmol/L Anion Gap (12-20) BUN (9-16) mg/dL Creatinine (0.5-1.4) mg/dL Estim Creat Clear Calc Estimated GFR POC Glucose (60-115) mg/dL Random Glucose (60-115) mg/dL Calcium (8.4-10.2) mg/dL Magnesium (1.6-2.6) mg/dL Troponin I High Sens < 3.5 (<3.5-35.0) ng/L <Sheri Flynn, [employer] - Last Filed: 10/07/22 19:48> Lab Results 10/07/22 10/07/22 10/07/22 Range/Units 20:01 20:13 20:13 WBC 6.9 (4.8-10.8) X10*3/uL RBC 5.31 (4.60-5.80) X10*6/uL Hgb 14.4 (14.0-18.0) g/dl Hct 45.0 (42.0-52.0) % MCV 84.7 (80.0-98.0) fL MCH 27.1 (27.0-33.0) pg MCHC 32.0 (31.0-36.0) g/dl RDW 13.0 (11.0-16.0) % Plt Count 216 (160-400) X10*3/uL MPV 11.7 (9.4-12.4) fL Immature Gran % (Auto) 0.1 (0.0-0.4) % Neut % (Auto) 57.6 (45-73) % Lymph % (Auto) 29.0 (20-40) % [place] % (Auto) 11.0 (2-11) % Eos % (Auto) 1.7 (0-4) % Baso % (Auto) 0.6 (0-2) % Lymph # (Auto) 2.0 (1.2-4.9) X10*3/uL [place] # (Auto) 0.8 (0.1-1.2) X10*3/uL Eos # (Auto) 0.1 (0.0-0.4) X10*3/uL Baso # (Auto) 0.0 (0.0-0.2) X10*3/uL Abs Immat Gran (auto) 0.01 (0.00-0.03) X10*3/uL Absolute Neuts (auto) 4.0 (2.0-8.3) x10*3/uL Absolute Nucleated RBC 0.000 (0.0-0.012) X10*3/uL Nucleated RBC % (auto) 0.0 (0.0-0.2) /100WBC Sodium 141 (135-145) mmol/L Potassium 4.4 (3.3-5.1) mmol/L Chloride 106 (96-108) mmol/L Carbon Dioxide 27 (22-29) mmol/L Anion Gap 12 (12-20) BUN 11 (9-16) mg/dL Creatinine 1.02 (0.5-1.4) mg/dL Estim Creat Clear Calc 96.3 Estimated GFR > 60 POC Glucose 212 H (60-115) mg/dL Random Glucose 201 H (60-115) mg/dL Calcium 9.9 (8.4-10.2) mg/dL Magnesium 2.2 (1.6-2.6) mg/dL Troponin I High Sens (<3.5-35.0) ng/L 10/07/22 Range/Units 20:13 WBC (4.8-10.8) X10*3/uL RBC (4.60-5.80) X10*6/uL Hgb (14.0-18.0) g/dl Hct (42.0-52.0) % MCV (80.0-98.0) fL MCH (27.0-33.0) pg MCHC (31.0-36.0) g/dl RDW (11.0-16.0) % Plt Count (160-400) X10*3/uL MPV (9.4-12.4) fL Immature Gran % (Auto) (0.0-0.4) % Neut % (Auto) (45-73) % Lymph % (Auto) (20-40) % [place] % (Auto) (2-11) % Eos % (Auto) (0-4) % Baso % (Auto) (0-2) % Lymph # (Auto) (1.2-4.9) X10*3/uL [place] # (Auto) (0.1-1.2) X10*3/uL Eos # (Auto) (0.0-0.4) X10*3/uL Baso # (Auto) (0.0-0.2) X10*3/uL Abs Immat Gran (auto) (0.00-0.03) X10*3/uL Absolute Neuts (auto) (2.0-8.3) x10*3/uL Absolute Nucleated RBC (0.0-0.012) X10*3/uL Nucleated RBC % (auto) (0.0-0.2) /100WBC Sodium (135-145) mmol/L Potassium (3.3-5.1) mmol/L Chloride (96-108) mmol/L Carbon Dioxide (22-29) mmol/L Anion Gap (12-20) BUN (9-16) mg/dL Creatinine (0.5-1.4) mg/dL Estim Creat Clear Calc Estimated GFR POC Glucose (60-115) mg/dL Random Glucose (60-115) mg/dL Calcium (8.4-10.2) mg/dL Magnesium (1.6-2.6) mg/dL Troponin I High Sens < 3.5 (<3.5-35.0) ng/L <Estrella Smart MD - Last Filed: 10/08/22 00:16> Discharge Plan Discharge Clinical Impression: Chronic hypertension, Type 2 diabetes mellitus <Sheri Flynn NP - Last Filed: 10/07/22 19:48> Patient Disposition: Home, Self-Care <Sheri Flynn NP - Last Filed: 10/07/22 19:48> Instructions: Chronic Hypertension (ED), Diabetic Hyperglycemia (ED) <Sheri Flynn NP - Last Filed: 10/07/22 19:48> Additional Instructions: Please follow-up with your primary care physician tomorrow. If you have any worsening or new symptoms, please return to the emergency room or call 911 <Sheri Flynn NP - Last Filed: 10/07/22 19:48> Prescriptions: No Action prazosin 5 mg capsule 4 cap PO BEDTIME lisinopril 10 mg tablet 1 tab PO BEDTIME mirtazapine 45 mg tablet 1 tab PO BEDTIME loratadine 10 mg tablet 1 tab PO DAILY duloxetine 20 mg capsule,delayed release(DR/EC) 1 cap PO QAM olopatadine 0.2 % drops 1 drp ophthalmic (eye) DAILY desvenlafaxine succinate 50 mg tablet extended release 24 hr 1 tab PO QAM lidocaine [Lidoderm] 5 % adhesive patch,medicated 1 patch topical DAILY PRN (Reason: Pain) metformin 500 mg tablet 1,000 mg PO BID omeprazole 20 mg capsule,delayed release(DR/EC) 20 mg PO QAM aripiprazole 30 mg tablet 30 mg PO BEDTIME amlodipine 10 mg tablet 10 mg PO QAM Citrucel 500 mg tablet 1,000 mg PO DAILY Qty: 60 6RF (DME) lancets [TRUEplus Lancets] 33 gauge misc See Rx Instructions .ROUTE TID Qty: 100 Rx Instructions: As directed rosuvastatin 40 mg tablet 40 mg PO BEDTIME aspirin 81 mg tablet,delayed release (DR/EC) 81 mg PO QPM alcohol swabs [Alcohol Prep Pads] Pads, Medicated 0 pad topical DAILY (DME) FreeStyle Lite Strips Strip See Rx Instructions .ROUTE TID Qty: 10 Rx Instructions: As directed senna 8.6 mg capsule 17.2 mg PO BEDTIME 30 Days Qty: 60 6RF <Sheri Flnyn [employer] - Last Filed: 10/07/22 19:48>
--- NOTE | 2022-10-07 19:47 | ECG_ITS ---
Test Reason : HYPERTENSION Blood Pressure : / mmHG Vent. Rate : 077 BPM Atrial Rate : 077 BPM P-R Int : 158 ms QRS Dur : 096 ms QT Int : 398 ms P-R-T Axes : 049 -31 -02 degrees QTc Int : 450 ms Normal sinus rhythm Left axis deviation Minimal voltage criteria for LVH, may be normal variant ( R in aVL ) Abnormal ECG When compared with ECG of 23-FEB-2022 11:18, No significant change was found Referred By: Sheri Flynn Electronically Signed By:Abel Gregory
[2022-10-07 20:19] LABS: MANUAL DIFF FLAG NO
[2022-10-07 20:21] LABS: Basophils Percent Auto 0.6 % (0-2); Eosinophils Absolute Auto 0.1 X10*3/uL (0.0-0.4); Eosinophils Percent Auto 1.7 % (0-4); Hemoglobin 14.4 g/dl (14.0-18.0); Imm Gran Abs Auto 0.01 X10*3/uL (0.00-0.03); Imm Gran Pct Auto 0.1 % (0.0-0.4); Mean Corpuscular Hemoglobin 27.1 pg (27.0-33.0); Mean Corpuscular Volume 84.7 fL (80.0-98.0); Mean Platelet Volume 11.7 fL (9.4-12.4); Monocytes Absolute Auto 0.8 X10*3/uL (0.1-1.2); Neutrophils Percent Auto 57.6 % (45-73); Platelet Count 216 X10*3/uL (160-400); Red Blood Count 5.31 X10*6/uL (4.60-5.80); White Blood Count 6.9 X10*3/uL (4.8-10.8)
[2022-10-07 20:23] LABS: Glucose, Whole Blood 212 mg/dL (60-115)
[2022-10-07 20:41] LABS: Anion Gap 12 (12-20); Blood Urea Nitrogen 11 mg/dL (9-16); Calcium 9.9 mg/dL (8.4-10.2); Carbon Dioxide 27 mmol/L (22-29); Chloride 106 mmol/L (96-108); Creatinine Clr Calc Pharmacy 96.3; Estimated Glomerular Filt Rate > 60; Glucose Random 201 mg/dL (60-115); Magnesium 2.2 mg/dL (1.6-2.6); Potassium 4.4 mmol/L (3.3-5.1); Sodium 141 mmol/L (135-145)
[2022-10-07 20:54] LABS: Troponin-I High Sensitivity < 3.5 ng/L (<3.5-35.0)
[2022-10-08] VITALS: BP 130/93; PULSE 81; RESP 13; TEMP 36.5; O2SAT 95
== END 2022-10-08 00:30 | disposition home or self-care (01) ==
PROVIDERS: Nurse Practitioner Family; Emergency Provider Emergency Medicine
DX: E11.649 Type 2 diabetes mellitus with hypoglycemia without coma (principal); I10 Essential (primary) hypertension; Z79.899 Other long term (current) drug therapy
CPT/HCPCS: 36415; 80048; 82947; 83735; 84484; 85025; 93005; 99283; 99284

== ENCOUNTER → 2023-01-27 08:30 | Outpatient (BNVA) | payer MEDICAID, SELFPAY | PROVIDERS: Visit Provider Nurse Practitioner | DX: K59.04 Chronic idiopathic constipation (principal); R10.31 Right lower quadrant pain; R10.32 Left lower quadrant pain; D12.6 Benign neoplasm of colon, unspecified; Z98.890 Other specified postprocedural states | CPT/HCPCS: 99212 ==

== ENCOUNTER 2023-05-26 13:54 | Emergency (ER) | payer OTHER, MEDICAID, SELFPAY ==
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
[2023-05-26 14:05] VITALS: BP 153/92; PULSE 76; RESP 18; TEMP 36.6; O2SAT 98; BMI 37.6
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
[2023-05-26 15:48] VITALS: BP 152/90; PULSE 62; RESP 16; TEMP 37.2; O2SAT 97
== END 2023-05-26 16:11 | disposition home or self-care (01) ==
PROVIDERS: Emergency Provider Emergency Medicine
DX: S39.012A Strain of muscle, fascia and tendon of lower back, initial encounter (principal); V43.52XA Car driver injured in collision with other type car in traffic accident, initial encounter; Y93.9 Activity, unspecified; Y92.410 Unspecified street and highway as the place of occurrence of the external cause; Y99.9 Unspecified external cause status; Z79.899 Other long term (current) drug therapy
CPT/HCPCS: 72100; 99283

== ENCOUNTER 2023-07-28 07:31 | Outpatient (AMB) | payer MEDICAID, SELFPAY ==
--- NOTE | 2023-07-28 07:42 | MHC.OFFVIS ---
Intake Vital Signs 07/28/23 07:44 Height 5 ft 7 in Weight 231 lb 7.766 oz BMI 36.3 BP 145/86 H Blood Pressure Location Lt brachial Position Sitting Pulse 69 Intake Visit Reasons: 6 Month FU CIC Intake Note: Norbert presents in the office as a 6 month follow up for CIC. CC: He states that he is still having constipation at times and his stomach will get tight. He will feel like he has to throw up. Allergies Penicillins [PENICILLINS] Allergy (Intermediate, Verified 07/28/23 07:52) RASH HPI 6 Month FU CIC HPI Details Assessment & Plan (1) Chronic idiopathic constipation: Code(s): K59.04 - Chronic idiopathic constipation Plan: His CIC is now well controlled on the senna 2 tabs qhs and he is happy with this. He wishes to follow with me, although I offer him the option of having this rx'ed by his PCP. He opts to continue following with our service but he can changes mind at any time when he sees his primary and asks if they are willing to continue prescribing this. ROV 6 mos. (2) Tubular adenoma of colon: Comment: 2018 scope=TA, 2021 scope negative repeat in 5 years Code(s): D12.6 - Benign neoplasm of colon, unspecified (3) Bilateral lower abdominal cramping: Code(s): R10.31 - Right lower quadrant pain; R10.32 - Left lower quadrant pain (4) H/O colonoscopy: Code(s): Z98.890 - Other specified postprocedural states TODAY'S VISIT He is doing well overall, but about once a month he will have nausea and have to vomit after a burning in the LLQ of the abdomen. Will increase senna to given him opportunity to take 3 if he can discern the patter. As it sounds like the bowel is overactive in there is times when it is trying to push too hard to move a larger stool burden in this may be causing the symptoms. Certainly this becomes worse will consider changing to a stronger constipation medication. He can contact me if this worsens and come in sooner but otherwise I will see him in 6 months. [facility] Medical History HTN (hypertension) Intertrigo Anxiety Depression C. difficile colitis Diabetes Family History (Updated 07/28/23 @ 07:53 by ASNDRITA Chaparro) Mother Cancer Father Cancer Maternal Uncle Cancer Alcohol intake: former Patient Tobacco Use Status: Never used Tobacco Current occupational status: unemployed Current occupation: rt handed Review of Systems Const Denies fatigue, Denies fever(s), Denies night sweats, Denies poor appetite and Denies weight loss ENT Reports Normal hearing present, Denies dental pain, Denies dysphagia, Denies hearing loss, Denies mouth pain, Denies odynophagia, Denies throat swelling, Denies tongue swelling and Reports other (Dentition adequate) Card Reports no additional complaints Resp Reports no additional complaints GI Reports abdominal pain, Denies melena, Denies bloating, Denies hematochezia, Reports constipation, Denies GI cramping, Denies dysphagia, Denies excessive flatus, Denies early satiety, Reports heartburn, Denies diarrhea, Reports nausea, Denies odynophagia, Denies vomiting and Denies hematemesis Skin/Breast Denies pruritus, Denies lesions, Denies rash and Denies jaundice Neuro Reports Normal hearing present and Denies Abnormal speech present Endo Denies fatigue Aller/Immun Denies throat swelling and Denies tongue swelling Physical Exam Vital Signs: Last Vital Signs Pulse 69 07/28/23 07:44 BP 145/86 H 07/28/23 07:44 BMI result Body Mass Index 36.3 Const General: cooperative, no acute distress, well developed and well groomed Nutritional Appearance: well nourished and obese Orientation/consciousness: oriented to person, oriented to place and oriented to time Limitations: No language barrier HEENT Head: Yes normocephalic and Yes atraumatic Eyes General: appearance normal, both eyes and all related structures Pupils: Equal, round and reactive pupils present Neck Neck: Yes normal visual inspection and Yes no lymphadenopathy Thyroid: Thyroid normal Resp Effort & Inspection: normal respiratory effort and able to speak in complete sentences Auscultation: clear to auscultation bilaterally Cardio Rate: regular rate Rhythm: regular rhythm Heart sounds: Normal, physiologic split S2 sound present Peripheral pulses: radial pulses present and posterior tibial pulses present GI Inspection: No distended, No Abdominal panniculus present and Yes obesity Palpation (GI): Soft to palpation, nontender, no guarding, not rigid, No hepatosplenomegaly present and Hepatosplenomegaly present Percussion: Yes normal to percussion Auscultation: normal bowel sounds Rectal Exam - Male: Yes deferred Skin General skin exam: no rashes or lesions noted, turgor normal, skin not dry, no jaundice, No spider nevi and no striae Rashes: no rashes Nails: normal Neuro General: oriented to person, oriented to place and oriented to time Cranial nerves: Yes Equal, round and reactive pupils present and Yes Normal hearing present Speech: No Abnormal speech present Extrem General: Yes normal to inspection, No clubbing, No cyanosis and No edema Psych Appearance: grossly normal and well kempt Mental Status: mental status grossly normal Speech and movement: Normal speech and movement present Affect: normal affect Attitude: cooperative Thought process: Normal thought process present and not confabulating Thought content: Normal thought content present Insight: Fair insight present (Psych) Judgement: Fair judgement present (Psych) Assessment & Plan Assessment & Plan (1) Chronic idiopathic constipation: Code(s): K59.04 - Chronic idiopathic constipation (2) Tubular adenoma of colon: Comment: 2018 scope=TA, 2021 scope negative repeat in 5 years Code(s): D12.6 - Benign neoplasm of colon, unspecified Plan He is doing well overall, but about once a month he will have nausea and have to vomit after a burning in the LLQ of the abdomen. Will increase senna to given him opportunity to take 3 if he can discern the patter. As it sounds like the bowel is overactive in there is times when it is trying to push too hard to move a larger stool burden in this may be causing the symptoms. Certainly this becomes worse will consider changing to a stronger constipation medication. He continues on omeprazole for GERD with good control of this condition. He can contact me if this worsens and come in sooner but otherwise I will see him in 6 months. Medications: New omeprazole 20 mg PO QAM 30 caps 6RF Changed From sennosides (senna) 17.2 mg (2 x 8.6 mg) PO BEDTIME 60 tabs 6RF for constipation To sennosides (senna) 25.8 mg (3 x 8.6 mg) PO BEDTIME 60 tabs 6RF for constipation Refilled methylcellulose (laxative) (Citrucel) 1,000 mg (2 x 500 mg) PO DAILY 60 tabs 6RF K59.04 - Chronic idiopathic constipation, R10.31 - Right lower quadrant pain, R10.32 - Left lower quadrant pain Coding Level of Care Code Est Pt Level 3 (41108) Diagnoses Chronic idiopathic constipation K59.04 Tubular adenoma of colon D12.6
[2023-07-28 07:44] VITALS: BP 145/86; PULSE 69; BMI 36.3
== END 2023-07-28 08:25 | disposition home or self-care (01) ==
PROVIDERS: Visit Provider Nurse Practitioner
DX: K59.04 Chronic idiopathic constipation (principal); D12.6 Benign neoplasm of colon, unspecified
CPT/HCPCS: 99213

== ENCOUNTER → 2023-07-28 07:31 | Outpatient (BNVA) | payer MEDICAID, SELFPAY | PROVIDERS: Visit Provider Nurse Practitioner | DX: K59.04 Chronic idiopathic constipation (principal); R10.31 Right lower quadrant pain; D12.6 Benign neoplasm of colon, unspecified; Z98.890 Other specified postprocedural states | CPT/HCPCS: 99212 ==

== ENCOUNTER 2023-08-28 20:29 | Emergency (ER) | payer MEDICAID, SELFPAY ==
--- NOTE | 2023-08-28 | ECG_ITS ---
Test Reason : SHOULDER PAIN Blood Pressure : / mmHG Vent. Rate : 108 BPM Atrial Rate : 108 BPM P-R Int : 164 ms QRS Dur : 092 ms QT Int : 330 ms P-R-T Axes : 047 -34 021 degrees QTc Int : 442 ms Sinus tachycardia Possible Left atrial enlargement Left axis deviation Minimal voltage criteria for LVH, may be normal variant ( R in aVL ) Inferior infarct , age undetermined Abnormal ECG Referred By: Generic ED Physician Electronically Signed By:PEARL RODRIGUES MD
--- NOTE | ~2023-08-28 | XR_ITS ---
EXAMINATION: XR CHEST CLINICAL INFORMATION: Cough COMPARISON: 02/23/2022 TECHNIQUE: Frontal view of the chest was obtained. FINDINGS: No significant abnormality is noted involving the heart, lungs, mediastinum, bony thorax or soft tissues. XR/XR chest 1V IMPRESSION: Unremarkable examination.
[2023-08-28 20:32] VITALS: BP 143/92; PULSE 120; RESP 19; TEMP 37.4; O2SAT 92; BMI 37.6
[2023-08-28 21:17] LABS: Basophils Percent Auto 0.4 % (0-2); Eosinophils Absolute Auto 0.1 X10*3/uL (0.0-0.4); Eosinophils Percent Auto 0.7 % (0-4); Hematocrit 44.4 % (42.0-52.0); Hemoglobin 14.5 g/dl (14.0-18.0); Imm Gran Abs Auto 0.01 X10*3/uL (0.00-0.03); Imm Gran Pct Auto 0.1 % (0.0-0.4); Lymphocytes Absolute Auto 0.8 X10*3/uL (1.2-4.9); Lymphocytes Percent Auto 8.9 % (20-40); MANUAL DIFF FLAG NO; Mean Corpuscular HGB Conc 32.7 g/dl (31.0-36.0); Mean Corpuscular Volume 82.7 fL (80.0-98.0); Mean Platelet Volume 11.5 fL (9.4-12.4); Monocytes Absolute Auto 0.8 X10*3/uL (0.1-1.2); Monocytes Percent Auto 9.2 % (2-11); Neutrophils Absolute Auto 6.9 x10*3/uL (2.0-8.3); Neutrophils Percent Auto 80.7 % (45-73); Platelet Count 222 X10*3/uL (160-400); Red Blood Count 5.37 X10*6/uL (4.60-5.80); Red Cell Distribution Width 13.2 % (11.0-16.0); White Blood Count 8.6 X10*3/uL (4.8-10.8)
[2023-08-28 21:36] LABS: Alanine Aminotransferase 31 U/L (0-40); Albumin Level 4.4 g/dL (3.5-5.0); Alkaline Phosphatase 102 U/L (39-117); Anion Gap 13 (12-20); Aspartate Amino Transferase 28 U/L (5-37); Bilirubin Direct 0.2 mg/dL (0.0-0.5); Bilirubin Total 0.5 mg/dL (0.0-1.0); Blood Urea Nitrogen 11 mg/dL (9-16); Calcium 9.7 mg/dL (8.4-10.2); Carbon Dioxide 27 mmol/L (22-29); Chloride 103 mmol/L (96-108); Creatinine Clr Calc Pharmacy 86.9; Estimated Glomerular Filt Rate > 60; Glucose Random 128 mg/dL (60-115); Lipase 27 U/L (8-78); Potassium 3.7 mmol/L (3.3-5.1); Sodium 139 mmol/L (135-145)
[2023-08-28 21:44] LABS: Troponin-I High Sensitivity < 2.7 ng/L (<3.5-35.0)
--- NOTE | 2023-08-28 22:07 | ED_ITS ---
HPI - General Adult General Chief complaint: General Medical Stated complaint: headache,left shoulder and pain Time Seen by Provider: 08/28/23 22:05 Source: patient Mode of arrival: ambulatory Limitations: no limitations History of Present Illness HPI narrative: Patient been coughing last 3 -4 days of body aches shoulder pain leg pain feeling hot on arrival temperature was 101.8 denies any urinary complaints patient does have cough for last few days with mucopurulent phlegm no abdominal pain no nausea/ vomiting Related Data Home Medications Medication Instructions Recorded Confirmed metformin 500 mg tablet 1,000 mg PO BID 07/24/20 02/23/22 amlodipine 10 mg tablet 10 mg PO QAM 01/29/22 02/23/22 aripiprazole 30 mg tablet 30 mg PO BEDTIME 01/29/22 02/23/22 duloxetine 20 mg capsule,delayed 1 cap PO QAM 02/23/22 02/23/22 release loratadine 10 mg tablet 1 tab PO DAILY 02/23/22 02/23/22 mirtazapine 45 mg tablet 1 tab PO BEDTIME 02/23/22 02/23/22 olopatadine 0.2 % eye drops 1 drp ophthalmic (eye) DAILY 02/23/22 02/23/22 prazosin 5 mg capsule 4 cap PO BEDTIME 02/23/22 02/23/22 alcohol swabs (Alcohol Prep Pads) 0 pad topical DAILY 07/29/22 aspirin 81 mg tablet,delayed 81 mg PO QPM 07/29/22 release blood sugar diagnostic (FreeStyle #10 ea 07/29/22 Lite Strips) lancets 33 gauge (TRUEplus Lancets) #100 ea 07/29/22 rosuvastatin 40 mg tablet 40 mg PO BEDTIME 07/29/22 desvenlafaxine succinate 100 mg 100 mg PO QAM 01/27/23 tablet,extended release 24 hr (Pristiq) lisinopril 20 mg tablet 20 mg PO QPM 01/27/23 buspirone 5 mg tablet 5 mg PO TID 07/28/23 empagliflozin 25 mg tablet 25 mg PO QAM 07/28/23 (Jardiance) Previous Rx's Medication Instructions Recorded cyclobenzaprine 10 mg tablet 10 mg PO TID PRN muscle spasm #14 05/26/23 tabs lidocaine 5 % topical patch 1 patch topical DAILY #15 ea 05/26/23 naproxen 500 mg tablet 500 mg PO BID PRN pain #20 tabs 05/26/23 methylcellulose (laxative) 500 mg 1,000 mg (2 x 500 mg) PO DAILY #60 07/28/23 tablet (Citrucel) tabs omeprazole 20 mg capsule,delayed 20 mg PO QAM #30 caps 07/28/23 release sennosides 8.6 mg tablet (senna) 25.8 mg (3 x 8.6 mg) PO BEDTIME 07/28/23 for constipation #60 tabs codeine 10 mg-guaifenesin 100 mg/5 10 ml PO Q6H PRN cough #237 mL 08/29/23 mL oral liquid ibuprofen 600 mg tablet 600 mg PO Q6H PRN fever or pain 08/29/23 #30 tabs Allergies Allergy/AdvReac Type Severity Reaction Status Date / Time Penicillins [PENICILLINS] Allergy Intermediate RASH Verified 07/28/23 07:52 Review of Systems 2 Review of Systems: Yes all other systems are reviewed and are negative [facility] Past Medical History Medical History HTN (hypertension) Intertrigo Anxiety Depression C. difficile colitis Diabetes Family History Family History Mother Cancer Father Cancer Maternal Uncle Cancer Social History Social History Alcohol intake: former Patient Tobacco Use Status: Never used Tobacco Smoked in Last 30 Days: No Use of substances other than those prescribed or required for medical reasons: No Advance Directives: No Advance Directives Information Provided: No Current occupational status: unemployed Current occupation: rt handed Physical Exam ED Vital Signs: Vital Signs - 24 hr 08/28/23 20:32 08/28/23 22:28 08/29/23 00:21 Temperature 99.4 F 101.2 F H 98.6 F Pulse Rate 120 H Respiratory Rate 19 Blood Pressure 143/92 H Pulse Oximetry 92 Oxygen Delivery Method Room Air BMI result Body Mass Index 37.6 Appearance: Alert. Oriented X3. No acute distress. Eyes: No pallor or icterus ENT: Pharynx normal. Oral Mucosa moist Neck: Normal inspection. Neck supple. CVS: Normal heart rate and rhythm. Pulses normal. Respiratory: No respiratory distress. Equal air entry bilateral, no wheezing/rales/rhonchi Abdomen: Soft and nontender. Bowel sounds are present, no mass palpable, no CVA tenderness Skin: Skin warm and dry. Normal skin color. Normal skin turgor. Extremities: No lower extremity edema. No calf tenderness Neuro: Oriented X 3. No motor deficit. Medications Administered Discontinued Medications Generic Name Dose Route Start Last Admin Trade Name Freq PRN Reason Stop Dose Admin Acetaminophen 650 mg 08/28/23 22:22 08/28/23 22:39 Acetaminophen 325 Mg Tablet PO 08/28/23 22:23 650 mg ONCE ONE Administration Guaifenesin/Codeine Phosphate 10 ml 08/28/23 22:23 08/28/23 22:38 Guaifen/Codeine Sf 200/20/10ml 10 Ml Liquid PO 08/28/23 22:24 10 ml ONCE ONE Administration Ibuprofen 600 mg 08/28/23 22:22 08/28/23 22:38 Ibuprofen 600 Mg Tablet PO 08/28/23 22:23 600 mg ONCE ONE Administration Medical Decision Making Medical Decision Making [facility] Narrative: Patient with influenza a with body symptoms chest x-ray negative for infiltrate discharge patient on supportive treatment Lab Data [facility] Lab Attestation statement: I reviewed the patient's lab results. 08/28/23 21:11 08/28/23 21:11 Labs: Lab Results 08/28/23 08/28/23 08/28/23 Range/Units 21:11 22:44 22:45 WBC 8.6 (4.8-10.8) X10*3/uL RBC 5.37 (4.60-5.80) X10*6/uL Hgb 14.5 (14.0-18.0) g/dl Hct 44.4 (42.0-52.0) % MCV 82.7 (80.0-98.0) fL MCH 27.0 (27.0-33.0) pg MCHC 32.7 (31.0-36.0) g/dl RDW 13.2 (11.0-16.0) % Plt Count 222 (160-400) X10*3/uL MPV 11.5 (9.4-12.4) fL Immature Gran % (Auto) 0.1 (0.0-0.4) % Neut % (Auto) 80.7 H (45-73) % Lymph % (Auto) 8.9 L (20-40) % [place] % (Auto) 9.2 (2-11) % Eos % (Auto) 0.7 (0-4) % Baso % (Auto) 0.4 (0-2) % Lymph # (Auto) 0.8 L (1.2-4.9) X10*3/uL [place] # (Auto) 0.8 (0.1-1.2) X10*3/uL Eos # (Auto) 0.1 (0.0-0.4) X10*3/uL Baso # (Auto) 0.0 (0.0-0.2) X10*3/uL Abs Immat Gran (auto) 0.01 (0.00-0.03) X10*3/uL Absolute Neuts (auto) 6.9 (2.0-8.3) x10*3/uL Absolute Nucleated RBC 0.000 (0.0-0.012) X10*3/uL Nucleated RBC % (auto) 0.0 (0.0-0.2) /100WBC Sodium 139 (135-145) mmol/L Potassium 3.7 (3.3-5.1) mmol/L Chloride 103 (96-108) mmol/L Carbon Dioxide 27 (22-29) mmol/L Anion Gap 13 (12-20) BUN 11 (9-16) mg/dL Creatinine 1.13 (0.5-1.4) mg/dL Estim Creat Clear Calc 86.9 Estimated GFR > 60 Random Glucose 128 H (60-115) mg/dL Calcium 9.7 (8.4-10.2) mg/dL Total Bilirubin 0.5 (0.0-1.0) mg/dL Direct Bilirubin 0.2 (0.0-0.5) mg/dL AST 28 (5-37) U/L ALT 31 (0-40) U/L Alkaline Phosphatase 102 (39-117) U/L Troponin I High Sens < 2.7 (<3.5-35.0) ng/L Total Protein 8.0 (6.5-8.0) g/dL Albumin 4.4 (3.5-5.0) g/dL Lipase 27 (8-78) U/L Urine Color Yellow Urine Appearance Clear Urine pH 6.0 (5.0-9.0) Ur Specific [place] >= 1.030 H (1.005-1.025) Urine Protein Negative (Neg-Trace) mg/dL Urine Glucose (UA) >=1000 H (Negative) mg/dL Urine Ketones Trace (Negative) mg/dL Urine Blood Negative (Negative) Urine Nitrite Negative (Negative) Ur Leukocyte Esterase Negative (Negative) Urine RBC 0-2 (0-2) /HPF Urine WBC 0-5 (0-5) /HPF Ur Squamous Epith Cells 3-5 (0-2) /HPF Urine Bacteria None Seen (None Seen) Hyaline Casts 0-2 (0-2) /LPF Influenza Type A (PCR) POSITIVE A (Negative) Influenza Type B (PCR) NEGATIVE (Negative) RSV RNA Qual (PCR) NEGATIVE (Negative) SARS-CoV-2 RNA (RT-PCR) NEGATIVE (Negative) Discharge Plan Discharge Clinical Impression: Influenza A Patient Disposition: Home, Self-Care Instructions: Influenza (ED) Additional Instructions: Drink plenty of fluids Tylenol/ Motrin for body aches fever Cough syrup as advised Prescriptions: New codeine-guaifenesin 10-100 mg/5 mL liquid 10 ml PO Q6H PRN (Reason: cough) Qty: 237 0RF ibuprofen 600 mg tablet 600 mg PO Q6H PRN (Reason: fever or pain) Qty: 30 0RF No Action prazosin 5 mg capsule 4 cap PO BEDTIME mirtazapine 45 mg tablet 1 tab PO BEDTIME loratadine 10 mg tablet 1 tab PO DAILY duloxetine 20 mg capsule,delayed release(DR/EC) 1 cap PO QAM olopatadine 0.2 % drops 1 drp ophthalmic (eye) DAILY cyclobenzaprine 10 mg tablet 10 mg PO TID PRN (Reason: muscle spasm) Qty: 14 0RF lidocaine 5 % adhesive patch,medicated 1 patch topical DAILY Qty: 15 0RF Rx Instructions: leave on most painful area for up to 12 hrs naproxen 500 mg tablet 500 mg PO BID PRN (Reason: pain) Qty: 20 0RF metformin 500 mg tablet 1,000 mg PO BID lisinopril 20 mg tablet 20 mg PO QPM desvenlafaxine succinate [Pristiq] 100 mg tablet extended release 24 hr 100 mg PO QAM aripiprazole 30 mg tablet 30 mg PO BEDTIME amlodipine 10 mg tablet 10 mg PO QAM (DME) lancets [TRUEplus Lancets] 33 gauge misc See Rx Instructions .ROUTE TID Qty: 100 Rx Instructions: As directed rosuvastatin 40 mg tablet 40 mg PO BEDTIME aspirin 81 mg tablet,delayed release (DR/EC) 81 mg PO QPM alcohol swabs [Alcohol Prep Pads] Pads, Medicated 0 pad topical DAILY (DME) FreeStyle Lite Strips Strip See Rx Instructions .ROUTE TID Qty: 10 Rx Instructions: As directed Jardiance 25 mg tablet 25 mg PO QAM buspirone 5 mg tablet 5 mg PO TID sennosides [senna] 8.6 mg tablet 25.8 mg PO BEDTIME Qty: 60 6RF omeprazole 20 mg capsule,delayed release(DR/EC) 20 mg PO QAM Qty: 30 6RF Citrucel 500 mg tablet 1,000 mg PO DAILY Qty: 60 6RF Interventions: ED Discharge Assessment Last Done: 08/29/23 00:22 Discharge Date/Time: 08/29/23 00:22
[2023-08-28 22:28] VITALS: TEMP 38.4
[2023-08-28] MEDS: guaiFEN/Codeine SF 200/20/10ML 10 ML LIQUID PO (22:38)
[2023-08-28] MEDS: Ibuprofen 600 MG TABLET PO (22:38)
[2023-08-28] MEDS: Acetaminophen 325 MG TABLET 650 MG PO (22:39)
[2023-08-28 22:54] LABS: Appearance Urine Clear; Color Urine Yellow; Glucose Urine UA >=1000 mg/dL (Negative); Leukocyte Esterase Urine Negative (Negative); Nitrite Urine Negative (Negative); Specific Gravity - Urine >= 1.030 (1.005-1.025); UMIC TRIGGER UACC YES; Urine Blood Negative (Negative); Urine Ketones Trace mg/dL (Negative); Urine Protein Negative (Neg-Trace)
[2023-08-28 23:28] LABS: Influenza A PCR POSITIVE (Negative); Influenza B PCR NEGATIVE (Negative); Resp Syncy Virus RNA Qual PCR NEGATIVE (Negative); SARS COV2 PCR INHOUSE NEGATIVE (Negative)
[2023-08-28 23:37] LABS: Bacteria Urine None Seen (None Seen); Hyaline Casts Urine 0-2 /LPF (0-2); RBC Urine 0-2 /HPF (0-2); WBC Urine 0-5 /HPF (0-5)
[2023-08-29 00:21] VITALS: TEMP 37
== END 2023-08-29 00:22 | disposition home or self-care (01) ==
PROVIDERS: Emergency Provider Internal Medicine
DX: J10.1 Influenza due to other identified influenza virus with other respiratory manifestations (principal); I10 Essential (primary) hypertension; E11.9 Type 2 diabetes mellitus without complications; Z20.822 Contact with and (suspected) exposure to COVID-19; Z20.828 Contact with and (suspected) exposure to other viral communicable diseases; Z88.0 Allergy status to penicillin
CPT/HCPCS: 0241U; 36415; 71045; 80048; 80076; 81001; 81003; 83690; 84484; 85025; 93005; 99283; 99284

== ENCOUNTER → 2023-08-28 21:02 | Outpatient (BNV) | payer MEDICAID, SELFPAY | PROVIDERS: Emergency Provider Internal Medicine; Visit Provider Internal Medicine Cardiovascular Disease | DX: R00.0 Tachycardia, unspecified (principal) | CPT/HCPCS: 93010 ==

== ENCOUNTER 2024-01-12 14:57 | Emergency (ER) | payer MEDICAID, SELFPAY ==
--- NOTE | ~2024-01-12 | CT_ITS ---
EXAMINATION: CT ABDOMEN AND PELVIS WITH CONTRAST CLINICAL INFORMATION: Right lower quadrant pain and tenderness to palpation COMPARISON: CT abdomen pelvis 01/12/2022 TECHNIQUE: Multidetector volumetric images were obtained from the superior aspect of the liver through the pubic symphysis following administration 85 mL of Omnipaque 350 intravenous contrast. Sagittal and coronal reformatted images were obtained on the technologist's workstation. Oral contrast: No This CT examination was performed using dose optimization techniques as appropriate, variously including the following: *Automated exposure control *Adjustment of mA and/or kV according to patient size (this includes techniques or standardized protocols for targeted exams where dose is matched to indication/reason for exam; i.e. extremities or head) *Use of iterative reconstruction technique DLP: 794 mGy-cm FINDINGS: LUNG BASES: The visualized lung bases are unremarkable aside from right size upper limits of normal.. LIVER, GALLBLADDER, AND BILIARY TREE: The liver is enlarged measuring 17.9 cm in greatest length and demonstrates decreased attenuation consistent with hepatic steatosis. No focal hepatic lesion or biliary ductal dilatation is present. The gallbladder is unremarkable with no evidence of radiopaque gallstones, gallbladder wall thickening, or obvious pericholecystic inflammatory changes. PANCREAS: Unremarkable. SPLEEN: Unremarkable. ADRENAL GLANDS: Unremarkable. KIDNEYS AND URETERS: The kidneys are normal in size, shape, and attenuation. Multiple benign Bosniak class I renal cysts are noted which require no additional imaging or follow-up. No solid renal masses are seen. No hydronephrosis, hydroureter, or calculi seen. No perinephric stranding. BLADDER: Unremarkable. GASTROINTESTINAL TRACT: There is colonic diverticulosis predominantly involving the left colon with scattered diverticula elsewhere. No evidence of diverticulitis. The small and large bowel are otherwise unremarkable. The appendix is unremarkable. ABDOMINAL WALL: No significant hernia is appreciated. LYMPH NODES: No retroperitoneal lymphadenopathy. VASCULAR: Unremarkable. PELVIC VISCERA: Mild BPH. Seminal vesicles appear normal. OSSEOUS STRUCTURES: Unremarkable. CT/CT abdomen pelvis w IV con IMPRESSION: A cause for the patient's right lower quadrant pain has not been found. The appendix is normal. Fleischner guidelines were followed.
[2024-01-12 15:05] VITALS: BP 177/94; PULSE 77; RESP 20; TEMP 37; O2SAT 96; BMI 37.6
[2024-01-12 15:30] LABS: MANUAL DIFF FLAG NO
[2024-01-12 15:34] LABS: Basophils Percent Auto 0.5 % (0-2); Eosinophils Absolute Auto 0.2 X10*3/uL (0.0-0.4); Hematocrit 42.8 % (42.0-52.0); Hemoglobin 14.1 g/dl (14.0-18.0); Imm Gran Abs Auto 0.02 X10*3/uL (0.00-0.03); Imm Gran Pct Auto 0.3 % (0.0-0.4); Lymphocytes Absolute Auto 2.2 X10*3/uL (1.2-4.9); Lymphocytes Percent Auto 28.7 % (20-40); Mean Corpuscular HGB Conc 32.9 g/dl (31.0-36.0); Mean Corpuscular Hemoglobin 27.9 pg (27.0-33.0); Mean Corpuscular Volume 84.6 fL (80.0-98.0); Mean Platelet Volume 11.9 fL (9.4-12.4); Monocytes Absolute Auto 0.9 X10*3/uL (0.1-1.2); Monocytes Percent Auto 12.3 % (2-11); Neutrophils Absolute Auto 4.3 x10*3/uL (2.0-8.3); Neutrophils Percent Auto 56.2 % (45-73); Platelet Count 209 X10*3/uL (160-400); Red Blood Count 5.06 X10*6/uL (4.60-5.80); Red Cell Distribution Width 12.9 % (11.0-16.0); White Blood Count 7.6 X10*3/uL (4.8-10.8)
[2024-01-12 16:07] LABS: Alanine Aminotransferase 45 U/L (0-40); Albumin Level 4.3 g/dL (3.5-5.0); Alkaline Phosphatase 76 U/L (39-117); Anion Gap 16 (12-20); Aspartate Amino Transferase 37 U/L (5-37); Bilirubin Total 0.3 mg/dL (0.0-1.0); Blood Urea Nitrogen 12 mg/dL (9-16); Calcium 9.5 mg/dL (8.4-10.2); Carbon Dioxide 24 mmol/L (22-29); Chloride 107 mmol/L (96-108); Creatinine Clr Calc Pharmacy 101.1; Estimated Glomerular Filt Rate > 60; Glucose Random 155 mg/dL (60-115); Lipase 34 U/L (8-78); Potassium 4.7 mmol/L (3.3-5.1); Sodium 142 mmol/L (135-145); Total Protein 8.2 g/dL (6.5-8.0)
[2024-01-12 20:03] VITALS: BP 147/97; PULSE 64; RESP 18; TEMP 36.4; O2SAT 97
--- NOTE | 2024-01-12 20:04 | MHC.EDTECH ---
This tech took over care of patient at this time,vitals and rounds completed.
--- NOTE | 2024-01-12 20:21 | PC.NURSE ---
pt changed into hospital attire, IV#22 placed into L-hand. PT reports RLQ px 06/15 that started 2 days ago. Reports last bm YESTERDAY, NO N/V/D. Plan of care on going.
--- NOTE | 2024-01-12 20:33 | ED_ITS ---
HPI - Abdominal Pain General Chief Complaint: Abdominal Pain Stated Complaint: R Side Pain Time Seen by Provider: 01/12/24 20:21 Source: patient Mode of arrival: ambulatory Limitations: no limitations History of Present Illness HPI narrative: Patient is a 58-year-old male who presents emergency department for evaluation of right lower quadrant abdominal pain for the past 2 days. Initially was intermittent in nature but today has been constant. 06/15, sharp pain. He denies associated fevers, chills, nausea, vomiting, upper abdominal pain, back/flank pain, diarrhea, constipation hematochezia, melena. Denies history of similar pain in the past. Related Data Home Medications ?Medication ?Instructions ?Recorded ?Confirmed metformin 500 mg tablet 1,000 mg PO BID 07/24/20 02/23/22 amlodipine 10 mg tablet 10 mg PO QAM 01/29/22 02/23/22 aripiprazole 30 mg tablet 30 mg PO BEDTIME 01/29/22 02/23/22 duloxetine 20 mg capsule,delayed 1 cap PO QAM 02/23/22 02/23/22 release loratadine 10 mg tablet 1 tab PO DAILY 02/23/22 02/23/22 mirtazapine 45 mg tablet 1 tab PO BEDTIME 02/23/22 02/23/22 olopatadine 0.2 % eye drops 1 drp ophthalmic (eye) DAILY 02/23/22 02/23/22 prazosin 5 mg capsule 4 cap PO BEDTIME 02/23/22 02/23/22 alcohol swabs (Alcohol Prep Pads) 0 pad topical DAILY 07/29/22 aspirin 81 mg tablet,delayed 81 mg PO QPM 07/29/22 release blood sugar diagnostic (FreeStyle #10 ea 07/29/22 Lite Strips) lancets 33 gauge (TRUEplus Lancets) #100 ea 07/29/22 rosuvastatin 40 mg tablet 40 mg PO BEDTIME 07/29/22 desvenlafaxine succinate 100 mg 100 mg PO QAM 01/27/23 tablet,extended release 24 hr (Pristiq) lisinopril 20 mg tablet 20 mg PO QPM 01/27/23 buspirone 5 mg tablet 5 mg PO TID 07/28/23 empagliflozin 25 mg tablet 25 mg PO QAM 07/28/23 (Jardiance) Previous Rx's ?Medication ?Instructions ?Recorded cyclobenzaprine 10 mg tablet 10 mg PO TID PRN muscle spasm #14 05/26/23 tabs lidocaine 5 % topical patch 1 patch topical DAILY #15 ea 05/26/23 naproxen 500 mg tablet 500 mg PO BID PRN pain #20 tabs 05/26/23 methylcellulose (laxative) 500 mg 1,000 mg (2 x 500 mg) PO DAILY #60 07/28/23 tablet (Citrucel) tabs omeprazole 20 mg capsule,delayed 20 mg PO QAM #30 caps 07/28/23 release codeine 10 mg-guaifenesin 100 mg/5 10 ml PO Q6H PRN cough #237 mL 08/29/23 mL oral liquid ibuprofen 600 mg tablet 600 mg PO Q6H PRN fever or pain 08/29/23 #30 tabs sennosides 8.6 mg tablet (senna) 25.8 mg (3 x 8.6 mg) PO BEDTIME 11/01/23 PRN for constipation #60 tabs Allergies Allergy/AdvReac Type Severity Reaction Status Date / Time Penicillins [PENICILLINS] Allergy Intermediate RASH Verified 01/12/24 15:07 Review of Systems Review of Systems Yes all other systems are reviewed and are negative [facility] Past Medical History Attestation statement: The following information was validated with the patient. Source: old records reviewed Medical History HTN (hypertension) Intertrigo Anxiety Depression C. difficile colitis Diabetes Family History Family History Mother Cancer Father Cancer Maternal Uncle Cancer Social History Social History Alcohol intake: former Patient Tobacco Use Status: Never used Tobacco Smoked in Last 30 Days: No Use of substances other than those prescribed or required for medical reasons: No Any prior treatment program specific to substance use: No Advance Directives: No Advance Directives Information Provided: No Do you have a plan to hurt others: No Plan Current occupational status: unemployed Current occupation: rt handed Physical Exam ED Vital Signs: Vital Signs - 24 hr 01/12/24 15:05 01/12/24 20:03 01/12/24 21:46 Temperature 98.6 F 97.6 F 97.8 F Pulse Rate 77 64 67 Respiratory Rate 20 18 18 Blood Pressure 177/94 H 147/97 H 158/94 H Pulse Oximetry 96 97 96 Oxygen Delivery Method Room Air Room Air Room Air 01/12/24 23:30 Temperature 97.9 F Pulse Rate 62 Respiratory Rate 18 Blood Pressure 159/95 H Pulse Oximetry 98 Oxygen Delivery Method Room Air BMI result Body Mass Index 37.6 Appearance: Alert.?Oriented to person, place and time. No acute distress.?Normal affect. Eyes: Pupils equal, round and reactive to light.? ENT: Pharynx normal.?? Neck: Normal inspection.? Neck supple.?? CVS: Heart sounds normal. Normal heart rate and rhythm.? Pulses normal.?? Respiratory: No respiratory distress.? Lung sounds clear to auscultation bilaterally?? Abdomen: Soft with right lower quadrant tenderness upon palpation, no rebound tenderness. No rigidity. No guarding. No CVA tenderness. Normoactive bowel sounds. ?? Skin: Skin warm and dry.? Normal skin color.? Extremities: No lower extremity edema.? Neuro: Moves all extremities spontaneously. Sensation intact bilaterally. Ambulates with normal steady gait. Course Reevaluation(s) Reevaluation #1: CT abdomen pelvis is without acute pathology or suggestive cause for pain. Pain resolved after Toradol. Discussed with patient possible muscular etiology for symptoms. Advised rest, ice/heat, acetaminophen/ibuprofen and outpatient follow-up with primary care provider. Discussed strict return precautions. All questions answered. Medical Decision Making Medical Decision Making MDM Narrative: Patient is a 58-year-old male past medical history of hypertension, anxiety, depression, C diff, diabetes, diverticulitis who presents emergency department for evaluation of lower abdominal pain as per HPI. Overall he appears well, nontoxic, afebrile. He is notable tenderness upon palpation to the right lower quadrant, does not appear to have rebound tenderness, no rigidity or guarding. Pain is not exacerbated upon movement during examination. Will obtain CBC to evaluate for leukocytosis/ anemia, CMP and lipase to evaluate for abnormal electrolytes /abnormal renal function/ abnormal hepatic/biliary function, CT abdomen and pelvis and Urinalysis. Patient received 1 L normal saline IV fluid, and ketorolac IV for pain. Differential Diagnosis Differential Diagnoses: The differential diagnosis associated with the presentation includes (Appendicitis, diverticulitis, colitis, muscular strain, ureteral calculi) Admission/Observation Consideration of admission/observation: Escalation of care including admission/observation considered (See narrative above in course narrative for further detail) Lab Data MDM Lab Attestation statement: I reviewed the patient's lab results. CBC is without leukocytosis, anemia, or thrombocytopenia. No electrolyte derangement. No JERE. Lipase within normal range. Mildly elevated ALT as seen previously otherwise unremarkable LFTs. Urinalysis without evidence of infection or microscopic hematuria 01/12/24 15:26 01/12/24 15:26 Labs: Lab Results 01/12/24 01/12/24 Range/Units 15:26 23:19 WBC 7.6 (4.8-10.8) X10*3/uL RBC 5.06 (4.60-5.80) X10*6/uL Hgb 14.1 (14.0-18.0) g/dl Hct 42.8 (42.0-52.0) % MCV 84.6 (80.0-98.0) fL MCH 27.9 (27.0-33.0) pg MCHC 32.9 (31.0-36.0) g/dl RDW 12.9 (11.0-16.0) % Plt Count 209 (160-400) X10*3/uL MPV 11.9 (9.4-12.4) fL Immature Gran % (Auto) 0.3 (0.0-0.4) % Neut % (Auto) 56.2 (45-73) % Lymph % (Auto) 28.7 (20-40) % [place] % (Auto) 12.3 H (2-11) % Eos % (Auto) 2.0 (0-4) % Baso % (Auto) 0.5 (0-2) % Lymph # (Auto) 2.2 (1.2-4.9) X10*3/uL [place] # (Auto) 0.9 (0.1-1.2) X10*3/uL Eos # (Auto) 0.2 (0.0-0.4) X10*3/uL Baso # (Auto) 0.0 (0.0-0.2) X10*3/uL Abs Immat Gran (auto) 0.02 (0.00-0.03) X10*3/uL Absolute Neuts (auto) 4.3 (2.0-8.3) x10*3/uL Absolute Nucleated RBC 0.000 (0.0-0.012) X10*3/uL Nucleated RBC % (auto) 0.0 (0.0-0.2) /100WBC Sodium 142 (135-145) mmol/L Potassium 4.7 (3.3-5.1) mmol/L Chloride 107 (96-108) mmol/L Carbon Dioxide 24 (22-29) mmol/L Anion Gap 16 (12-20) BUN 12 (9-16) mg/dL Creatinine 0.96 (0.5-1.4) mg/dL Estim Creat Clear Calc 101.1 Estimated GFR > 60 Random Glucose 155 H (60-115) mg/dL Calcium 9.5 (8.4-10.2) mg/dL Total Bilirubin 0.3 (0.0-1.0) mg/dL AST 37 (5-37) U/L ALT 45 H (0-40) U/L Alkaline Phosphatase 76 (39-117) U/L Total Protein 8.2 H (6.5-8.0) g/dL Albumin 4.3 (3.5-5.0) g/dL Lipase 34 (8-78) U/L Urine Color Yellow Urine Appearance Clear Urine pH 5.5 (5.0-9.0) Ur Specific [place] 1.025 (1.005-1.025) Urine Protein Negative (Neg-Trace) mg/dL Urine Glucose (UA) Negative (Negative) mg/dL Urine Ketones Negative (Negative) mg/dL Urine Blood Negative (Negative) Urine Nitrite Negative (Negative) Ur Leukocyte Esterase Negative (Negative) Radiology Impression Discussion of test interpretation with radiology: I have reviewed the radiologist's reading. Radiologist Impression: CT/CT abdomen pelvis w IV con IMPRESSION: A cause for the patient's right lower quadrant pain has not been found. The appendix is normal. Independent Historian Clinical information obtained from an independent historian. History obtained from or confirmed by: Spouse (Present who confirms history) External Record Review External record reviewed: Outpatient record Medications Administered Discontinued Medications Generic Name Dose Route Start Last Admin Trade Name Freq PRN Reason Stop Dose Admin Sodium Chloride 1,000 mls @ 999 mls/hr 01/12/24 21:15 05/08/24 23:20 Ns IV 01/12/24 22:15 Infused .Q1H1M RICCI Infusion Iohexol 100 ml 01/13/24 00:14 01/13/24 00:15 Iohexol 350 Mg/Ml 100 Ml Infus..Btl IV 01/13/24 00:15 100 ml ONCE ONE Administration Ketorolac Tromethamine 30 mg 01/12/24 21:14 01/12/24 21:42 Ketorolac Tromethamine 30 Mg/Ml Vial IVPUSH 01/12/24 21:15 30 mg ONCE ONE Administration Discharge Plan Discharge Clinical Impression: Abdominal pain Patient Disposition: Home, Self-Care Instructions: Abdominal Pain (ED) Prescriptions: No Action sennosides [senna] 8.6 mg tablet 25.8 mg PO BEDTIME PRN (Reason: for constipation) Qty: 60 6RF prazosin 5 mg capsule 4 cap PO BEDTIME mirtazapine 45 mg tablet 1 tab PO BEDTIME loratadine 10 mg tablet 1 tab PO DAILY duloxetine 20 mg capsule,delayed release(DR/EC) 1 cap PO QAM olopatadine 0.2 % drops 1 drp ophthalmic (eye) DAILY cyclobenzaprine 10 mg tablet 10 mg PO TID PRN (Reason: muscle spasm) Qty: 14 0RF lidocaine 5 % adhesive patch,medicated 1 patch topical DAILY Qty: 15 0RF Rx Instructions: leave on most painful area for up to 12 hrs naproxen 500 mg tablet 500 mg PO BID PRN (Reason: pain) Qty: 20 0RF codeine-guaifenesin 10-100 mg/5 mL liquid 10 ml PO Q6H PRN (Reason: cough) Qty: 237 0RF ibuprofen 600 mg tablet 600 mg PO Q6H PRN (Reason: fever or pain) Qty: 30 0RF metformin 500 mg tablet 1,000 mg PO BID lisinopril 20 mg tablet 20 mg PO QPM desvenlafaxine succinate [Pristiq] 100 mg tablet extended release 24 hr 100 mg PO QAM aripiprazole 30 mg tablet 30 mg PO BEDTIME amlodipine 10 mg tablet 10 mg PO QAM (DME) lancets [TRUEplus Lancets] 33 gauge misc See Rx Instructions .ROUTE TID Qty: 100 Rx Instructions: As directed rosuvastatin 40 mg tablet 40 mg PO BEDTIME aspirin 81 mg tablet,delayed release (DR/EC) 81 mg PO QPM alcohol swabs [Alcohol Prep Pads] Pads, Medicated 0 pad topical DAILY (DME) FreeStyle Lite Strips Strip See Rx Instructions .ROUTE TID Qty: 10 Rx Instructions: As directed Jardiance 25 mg tablet 25 mg PO QAM buspirone 5 mg tablet 5 mg PO TID omeprazole 20 mg capsule,delayed release(DR/EC) 20 mg PO QAM Qty: 30 6RF Citrucel 500 mg tablet 1,000 mg PO DAILY Qty: 60 6RF Referrals: [facility] [Primary Care Provider] - Print Language: Barbadian
[2024-01-12] MEDS: Ketorolac Tromethamine 30 MG/ML VIAL IVPUSH (21:42)
[2024-01-12] MEDS: 0.9 % Sodium Chloride 1,000 ML 999 ML IV (21:45)
[2024-01-12 21:46] VITALS: BP 158/94; PULSE 67; RESP 18; TEMP 36.6; O2SAT 96
--- NOTE | 2024-01-12 21:47 | MHC.EDTECH ---
Hourly rounds and vitals completed.patient ambulated to the bathroom with a steady gait,unable to obtained urine at this time,will re-attempt. RN aware
[2024-01-12 23:30] VITALS: BP 159/95; PULSE 62; RESP 18; TEMP 36.6; O2SAT 98
--- NOTE | 2024-01-12 23:31 | MHC.EDTECH ---
Hourly rounds and vitals completed,urine sample obtained and sent to lab.
[2024-01-12 23:37] LABS: Appearance Urine Clear; Color Urine Yellow; Glucose Urine UA Negative (Negative); Leukocyte Esterase Urine Negative (Negative); Nitrite Urine Negative (Negative); PH 5.5 (5.0-9.0); Specific Gravity - Urine 1.025 (1.005-1.025); Urine Blood Negative (Negative); Urine Ketones Negative (Negative); Urine Protein Negative (Neg-Trace)
[2024-01-13] MEDS: iohexoL 350 MG/ML 100 ML INFUS..BTL IV (00:15)
[2024-01-13 01:45] VITALS: BP 160/95; PULSE 61; RESP 18; TEMP 36.7; O2SAT 97
[2024-01-13 01:57] VITALS: BP 160/95; PULSE 61; RESP 18; TEMP 36.7; O2SAT 97
== END 2024-01-13 01:55 | disposition home or self-care (01) ==
PROVIDERS: Nurse Practitioner Family; Emergency Provider Emergency Medicine
DX: R10.31 Right lower quadrant pain (principal); E11.9 Type 2 diabetes mellitus without complications; Z79.84 Long term (current) use of oral hypoglycemic drugs; Z79.899 Other long term (current) drug therapy
CPT/HCPCS: 36415; 74177; 80053; 81003; 83690; 85025; 96361; 96374; 99284; 99285; J1885; Q9967

== ENCOUNTER 2024-01-26 11:28 | Outpatient (AMB) | payer MEDICAID, SELFPAY ==
[2024-01-26 11:30] VITALS: BP 154/88; PULSE 84; BMI 39.2
--- NOTE | 2024-01-26 11:30 | A.OFFVIS_ITS ---
Vital Signs 01/26/24 11:30 Height 5 ft 7 in Weight 250 lb BMI 39.2 BP 154/88 H Blood Pressure Location Rt brachial Position Sitting Pulse 84 Intake Visit Reasons: 6month follow up Intake Note: Norbert presents in office today in 6 months follow up of constipation. CC: Patient states that he was doing well but about 3 weeks ago he began to have a RLQ abdominal pain. He went to ED on 01/12/24 d/t abdominal pain but per patient nothing abnormal was found on the tests performed. He states he feels like the pain comes from something with my urine . He states he is having small BMs and sometimes diarrhea. Envelope Adjuster Required: Yes Accompanied by: Self / Same As Patient Allergies Penicillins [PENICILLINS] Allergy (Intermediate, Verified 01/26/24 11:37) RASH HPI HPI 6month follow up: Details: Assessment & Plan (1) Chronic idiopathic constipation: Code(s): K59.04 - Chronic idiopathic constipation (2) Tubular adenoma of colon: Comment: 2018 scope=TA, 2021 scope negative repeat in 5 years Code(s): D12.6 - Benign neoplasm of colon, unspecified Plan He is doing well overall, but about once a month he will have nausea and have to vomit after a burning in the LLQ of the abdomen. Will increase senna to given him opportunity to take 3 if he can discern the patter. As it sounds like the bowel is overactive in there is times when it is trying to push too hard to move a larger stool burden in this may be causing the symptoms. Certainly this becomes worse will consider changing to a stronger constipation medication. He continues on omeprazole for GERD with good control of this condition. He can contact me if this worsens and come in sooner but otherwise I will see him in 6 months. Medications: New omeprazole 20 mg PO QAM 30 caps 6RF Changed From sennosides (senna) 17.2 mg (2 x 8.6 mg) PO BEDTIME 60 tabs 6RF for constipation To sennosides (senna) 25.8 mg (3 x 8.6 mg) PO BEDTIME 60 tabs 6RF for constipation Refilled methylcellulose (laxative) (Citrucel) 1,000 mg (2 x 500 mg) PO DAILY 60 tabs 6RF K59.04 - Chronic idiopathic constipation, R10.31 - Right lower quadrant pain, R10.32 - Left lower quadrant pain Review of ER notes 01/12/2024 Medical Decision Making [facility] Narrative: Patient is a 58-year-old male past medical history of hypertension, anxiety, depression, C diff, diabetes, diverticulitis who presents emergency department for evaluation of lower abdominal pain as per HPI. Overall he appears well, nontoxic, afebrile. He is notable tenderness upon palpation to the right lower quadrant, does not appear to have rebound tenderness, no rigidity or guarding. Pain is not exacerbated upon movement during examination. Will obtain CBC to evaluate for leukocytosis/ anemia, CMP and lipase to evaluate for abnormal electrolytes /abnormal renal function/ abnormal hepatic/biliary function, CT abdomen and pelvis and Urinalysis. Patient received 1 L normal saline IV fluid, and ketorolac IV for pain. Differential Diagnosis Differential Diagnoses: The differential diagnosis associated with the presentation includes (Appendicitis, diverticulitis, colitis, muscular strain, ureteral calculi) Admission/Observation Consideration of admission/observation: Escalation of care including admission/observation considered (See narrative above in course narrative for further detail) Lab Data [facility] Lab Attestation statement: I reviewed the patient's lab results. CBC is without leukocytosis, anemia, or thrombocytopenia. No electrolyte derangement. No JERE. Lipase within normal range. Mildly elevated ALT as seen previously otherwise unremarkable LFTs. Urinalysis without evidence of infection or microscopic hematuria CT ABDOMEN AND PELVIS 01/13/24 FINDINGS: LUNG BASES: The visualized lung bases are unremarkable aside from right size upper limits of normal.. LIVER, GALLBLADDER, AND BILIARY TREE: The liver is enlarged measuring 17.9 cm in greatest length and demonstrates decreased attenuation consistent with hepatic steatosis. No focal hepatic lesion or biliary ductal dilatation is present. The gallbladder is unremarkable with no evidence of radiopaque gallstones, gallbladder wall thickening, or obvious pericholecystic inflammatory changes. PANCREAS: Unremarkable. SPLEEN: Unremarkable. ADRENAL GLANDS: Unremarkable. KIDNEYS AND URETERS: The kidneys are normal in size, shape, and attenuation. Multiple benign Bosniak class I renal cysts are noted which require no additional imaging or follow-up. No solid renal masses are seen. No hydronephrosis, hydroureter, or calculi seen. No perinephric stranding. BLADDER: Unremarkable. GASTROINTESTINAL TRACT: There is colonic diverticulosis predominantly involving the left colon with scattered diverticula elsewhere. No evidence of diverticulitis. The small and large bowel are otherwise unremarkable. The appendix is unremarkable. ABDOMINAL WALL: No significant hernia is appreciated. LYMPH NODES: No retroperitoneal lymphadenopathy. VASCULAR: Unremarkable. PELVIC VISCERA: Mild BPH. Seminal vesicles appear normal. OSSEOUS STRUCTURES: Unremarkable. CT/CT abdomen pelvis w IV con IMPRESSION: A cause for the patient's right lower quadrant pain has not been found. The appendix is normal. TODAY'S VISIT [facility] About a week ago he had a pain that started in the RLQ and he presented to the ER but was told everything was fine. He had a negative CT scan. He says the pain was worse with bending such as to put on his shoes and laying on his right side. It did not seem to be related to eating or moving his bowels. There has been no new medications, no injury to the area, and no diet changes preceding this. I let him know that if the pain returns he should call my office immediately and or consider returning to the ER. We may never know what exactly caused it depending on whether not recurred. Urinalysis was completely negative although he does think that the pain was somewhat relieved when he would urinate. The pain has now been gone for couple of days. Although it sounds more mskskel, appendicitis can at times be poorly visualized on CT. HE continues to do well on hie omeprazole and senna and fiber. ROV 8 weeks. [facility] Medical History HTN (hypertension) Intertrigo Anxiety Depression C. difficile colitis Diabetes Family History Mother Cancer Father Cancer Maternal Uncle Cancer Social History Alcohol intake: former Patient Tobacco Use Status: Never used Tobacco Current occupational status: unemployed Current occupation: rt handed Review of Systems Const Denies fatigue, Denies fever(s), Denies night sweats, Denies poor appetite and Denies weight loss ENT Reports Normal hearing present, Denies dental pain, Denies dysphagia, Denies hearing loss, Denies mouth pain, Denies odynophagia, Denies throat swelling, Denies tongue swelling and Reports other (Dentition adequate) Card Reports no additional complaints Resp Reports no additional complaints GI Details: Reports abdominal pain, Denies melena, Denies bloating, Denies hematochezia, Reports constipation, Denies GI cramping, Denies dysphagia, Denies excessive flatus, Denies early satiety, Reports heartburn, Denies diarrhea, Denies nausea, Denies odynophagia, Denies vomiting and Denies hematemesis Musc Reports back pain Skin/Breast Denies pruritus, Denies lesions, Denies rash and Denies jaundice Neuro Reports Normal hearing present and Denies Abnormal speech present Endo Denies fatigue Aller/Immun Denies throat swelling and Denies tongue swelling Physical Exam Vital Signs: Last Vital Signs Pulse 84 01/26/24 11:30 BP 154/88 H 01/26/24 11:30 BMI result Body Mass Index 39.2 Const General: cooperative, no acute distress, well developed and well groomed Nutritional Appearance: well nourished and obese Orientation/consciousness: oriented to person, oriented to place and oriented to time Limitations: language barrier HEENT Head: Yes normocephalic and Yes atraumatic Eyes General: appearance normal, both eyes and all related structures Pupils: Equal, round and reactive pupils present Neck Neck: Yes normal visual inspection and Yes no lymphadenopathy Thyroid: Thyroid normal Resp Effort & Inspection: normal respiratory effort and able to speak in complete sentences Auscultation: clear to auscultation bilaterally Cardio Rate: regular rate Rhythm: regular rhythm Heart sounds: Normal, physiologic split S2 sound present Peripheral pulses: radial pulses present and posterior tibial pulses present GI Inspection: No distended, No Abdominal panniculus present and Yes obesity Palpation (GI): Soft to palpation, nontender, no guarding, not rigid and No hepatosplenomegaly present Percussion: Yes normal to percussion Auscultation: normal bowel sounds Rectal Exam - Male: Yes deferred Skin General skin exam: no rashes or lesions noted, turgor normal, skin not dry, no jaundice, No spider nevi and no striae Rashes: no rashes Nails: normal Neuro General: oriented to person, oriented to place and oriented to time Cranial nerves: Yes Equal, round and reactive pupils present and Yes Normal hearing present Speech: No Abnormal speech present Extrem General: Yes normal to inspection, No clubbing, No cyanosis and No edema Psych Appearance: grossly normal and well kempt Mental Status: mental status grossly normal Speech and movement: Normal speech and movement present Affect: normal affect Attitude: cooperative Thought process: Normal thought process present and not confabulating Thought content: Normal thought content present Insight: Fair insight present (Psych) and Limited insight present (Psych) Judgement: Fair judgement present (Psych) and Limited judgement present (Psych) Results Reviewed Results Reviewed: Review of ER notes 01/12/2024 Medical Decision Making [facility] Narrative: Patient is a 58-year-old male past medical history of hypertension, anxiety, depression, C diff, diabetes, diverticulitis who presents emergency department for evaluation of lower abdominal pain as per HPI. Overall he appears well, nontoxic, afebrile. He is notable tenderness upon palpation to the right lower quadrant, does not appear to have rebound tenderness, no rigidity or guarding. Pain is not exacerbated upon movement during examination. Will obtain CBC to evaluate for leukocytosis/ anemia, CMP and lipase to evaluate for abnormal e lectrolytes /abnormal renal function/ abnormal hepatic/biliary function, CT abdomen and pelvis and Urinalysis. Patient received 1 L normal saline IV fluid, and ketorolac IV for pain. Differential Diagnosis Differential Diagnoses: The differential diagnosis associated with the presentation includes (Appendicitis, diverticulitis, colitis, muscular strain, ureteral calculi) Admission/Observation Consideration of admission/observation: Escalation of care including admission/observation considered (See narrative above in course narrative for further detail) Lab Data [facility] Lab Attestation statement: I reviewed the patient's lab results. CBC is without leukocytosis, anemia, or thrombocytopenia. No electrolyte derangement. No JERE. Lipase within normal range. Mildly elevated ALT as seen previously otherwise unremarkable LFTs. Urinalysis without evidence of infection or microscopic hematuria CT ABDOMEN AND PELVIS 01/13/24 FINDINGS: LUNG BASES: The visualized lung bases are unremarkable aside from right size upper limits of normal.. LIVER, GALLBLADDER, AND BILIARY TREE: The liver is enlarged measuring 17.9 cm in greatest length and demonstrates decreased attenuation consistent with hepatic steatosis. No focal hepatic lesion or biliary ductal dilatation is present. The gallbladder is unremarkable with no evidence of radiopaque gallstones, gallbladder wall thickening, or obvious pericholecystic inflammatory changes. PANCREAS: Unremarkable. SPLEEN: Unremarkable. ADRENAL GLANDS: Unremarkable. KIDNEYS AND URETERS: The kidneys are normal in size, shape, and attenuation. Multiple benign Bosniak class I renal cysts are noted which require no additional imaging or follow-up. No solid renal masses are seen. No hydronephrosis, hydroureter, or calculi seen. No perinephric stranding. BLADDER: Unremarkable. GASTROINTESTINAL TRACT: There is colonic diverticulosis predominantly involving the left colon with scattered diverticula elsewhere. No evidence of diverticulitis. The small and large bowel are otherwise unremarkable. The appendix is unremarkable. ABDOMINAL WALL: No significant hernia is appreciated. LYMPH NODES: No retroperitoneal lymphadenopathy. VASCULAR: Unremarkable. PELVIC VISCERA: Mild BPH. Seminal vesicles appear normal. OSSEOUS STRUCTURES: Unremarkable. CT/CT abdomen pelvis w IV con IMPRESSION: A cause for the patient's right lower quadrant pain has not been found. The appendix is normal. Assessment & Plan Assessment & Plan (1) Chronic idiopathic constipation: Code(s): K59.04 - Chronic idiopathic constipation Category: Medical (2) Bilateral lower abdominal cramping: Code(s): R10.31 - Right lower quadrant pain; R10.32 - Left lower quadrant pain Category: Medical Plan [place] [facility] About a week ago he had a pain that started in the RLQ and he presented to the ER but was told everything was fine. He had a negative CT scan. He says the pain was worse with bending such as to put on his shoes and laying on his right side. It did not seem to be related to eating or moving his bowels. There has been no new medications, no injury to the area, and no diet changes preceding this. I let him know that if the pain returns he should call my office immediately and or consider returning to the ER. We may never know what exactly caused it depending on whether not recurred. Urinalysis was completely negative although he does think that the pain was somewhat relieved when he would urinate. The pain has now been gone for couple of days. Although it sounds more mskskel, appendicitis can at times be poorly visualized on CT. HE continues to do well on hie omeprazole and senna and fiber. ROV 8 weeks. Coding Level of Care Code Est Pt Level 3 (09358) Diagnoses Chronic idiopathic constipation K59.04 Bilateral lower abdominal cramping R10.31; R10.32
== END 2024-01-26 12:02 | disposition home or self-care (01) ==
PROVIDERS: Visit Provider Nurse Practitioner
DX: K59.04 Chronic idiopathic constipation (principal); R10.31 Right lower quadrant pain; R10.32 Left lower quadrant pain
CPT/HCPCS: 99213

== ENCOUNTER → 2024-01-26 11:28 | Outpatient (BNVA) | payer MEDICAID, SELFPAY | PROVIDERS: Visit Provider Nurse Practitioner | DX: K59.04 Chronic idiopathic constipation (principal); R10.31 Right lower quadrant pain; R10.32 Left lower quadrant pain; D12.6 Benign neoplasm of colon, unspecified | CPT/HCPCS: 99212 ==

== ENCOUNTER 2024-03-22 09:22 | Outpatient (REF) | payer MEDICAID, SELFPAY ==
[2024-03-22 12:19] LABS: Alanine Aminotransferase 43 U/L (0-40); Albumin Level 4.3 g/dL (3.5-5.0); Alkaline Phosphatase 76 U/L (39-117); Anion Gap 14 (12-20); Aspartate Amino Transferase 31 U/L (5-37); Bilirubin Total 0.4 mg/dL (0.0-1.0); Blood Urea Nitrogen 10 mg/dL (9-16); Calcium 9.4 mg/dL (8.4-10.2); Carbon Dioxide 25 mmol/L (22-29); Chloride 107 mmol/L (96-108); Cholesterol 160 mg/dL (<200); Estimated Glomerular Filt Rate > 60; Glucose Random 99 mg/dL (60-115); HDL Cholesterol 28 mg/dL (>40); LDL Cholesterol Calculated 105 mg/dL (<100); Potassium 3.8 mmol/L (3.3-5.1); Sodium 142 mmol/L (135-145); Total Protein 7.5 g/dL (6.5-8.0); Triglycerides 138 mg/dL (<150)
[2024-03-22 12:41] LABS: Creatinine Urine 188.36 mg/dL; Microalbum/Creatinine Ratio Ur 7.4 ug/mg cr (<30)
== END 2024-03-22 09:23 | disposition home or self-care (01) ==
LOC: HO.HHCL 09:22
PROVIDERS: Visit Provider Registered Nurse
DX: I10 Essential (primary) hypertension (principal); E11.65 Type 2 diabetes mellitus with hyperglycemia
CPT/HCPCS: 36415; 80053; 80061; 82043; 82570

== ENCOUNTER 2024-03-31 14:53 | Outpatient (AMB) | payer MEDICAID, SELFPAY ==
--- NOTE | 2024-03-31 14:55 | A.OFFVIS_ITS ---
Vital Signs 03/31/24 15:05 Height 5 ft 7 in Weight 246 lb 7.629 oz BMI 38.6 BP 131/88 Blood Pressure Location Lt brachial Position Sitting Pulse 78 Intake Visit Reasons: 8 weeks Intake Note: Norbert presents in office today in 8 weeks follow up of constipation. CC: Patient states that he is doing well and denies having any new GI symptoms or concerns today. Set Key Driver Required: Yes Accompanied by: Self / Same As Patient Allergies Penicillins [PENICILLINS] Allergy (Intermediate, Verified 03/31/24 15:11) RASH HPI HPI 8 weeks: Details: Assessment & Plan (1) Chronic idiopathic constipation: Code(s): K59.04 - Chronic idiopathic constipation Category: Medical (2) Bilateral lower abdominal cramping: Code(s): R10.31 - Right lower quadrant pain; R10.32 - Left lower quadrant pain Category: Medical Plan [place] [facility] About a week ago he had a pain that started in the RLQ and he presented to the ER but was told everything was fine. He had a negative CT scan. He says the pain was worse with bending such as to put on his shoes and laying on his right side. It did not seem to be related to eating or moving his bowels. There has been no new medications, no injury to the area, and no diet changes preceding this. I let him know that if the pain returns he should call my office immediately and or consider returning to the ER. We may never know what exactly caused it depending on whether not recurred. Urinalysis was completely negative although he does think that the pain was somewhat relieved when he would urinate. The pain has now been gone for couple of days. Although it sounds more mskskel, appendicitis can at times be poorly visualized on CT. HE continues to do well on hie omeprazole and senna and fiber. ROV 8 weeks. TODAY'S VISIT [place] [facility] HE continues to do well on hie omeprazole and senna and fiber. HTe RUQ pain did not return. ROV 6 mos. [facility] Medical History HTN (hypertension) Intertrigo Anxiety Depression C. difficile colitis Diabetes Surgical History H/O colonoscopy Family History Mother Cancer Father Cancer Maternal Uncle Cancer Social History Alcohol intake: former Patient Tobacco Use Status: Never used Tobacco Current occupational status: unemployed Current occupation: rt handed Review of Systems Const Denies fatigue, Denies fever(s), Denies night sweats, Denies poor appetite and Denies weight loss ENT Reports Normal hearing present, Denies dental pain, Denies dysphagia, Denies hearing loss, Denies mouth pain, Denies odynophagia, Denies throat swelling, Denies tongue swelling and Reports other (Dentition adequate) Card Reports no additional complaints Resp Reports no additional complaints GI Details: Denies abdominal pain, Denies melena, Denies bloating, Denies hematochezia, Reports constipation, Reports GI cramping, Denies dysphagia, Denies excessive flatus, Denies early satiety, Reports heartburn, Denies diarrhea, Denies nausea, Denies odynophagia, Denies vomiting and Denies hematemesis Skin/Breast Denies pruritus, Denies lesions, Denies rash and Denies jaundice Neuro Reports Normal hearing present and Denies Abnormal speech present Endo Denies fatigue Aller/Immun Denies throat swelling and Denies tongue swelling Physical Exam Vital Signs: Last Vital Signs Pulse 78 03/31/24 15:05 BP 131/88 03/31/24 15:05 BMI result Body Mass Index 38.6 Const General: cooperative, no acute distress, well developed and well groomed Nutritional Appearance: well nourished and obese Orientation/consciousness: oriented to person, oriented to place and oriented to time Limitations: language barrier HEENT Head: Yes normocephalic and Yes atraumatic Eyes General: appearance normal, both eyes and all related structures Pupils: Equal, round and reactive pupils present Neck Neck: Yes normal visual inspection and Yes no lymphadenopathy Thyroid: Thyroid normal Resp Effort & Inspection: normal respiratory effort and able to speak in complete sentences Auscultation: clear to auscultation bilaterally Cardio Rate: regular rate Rhythm: regular rhythm Heart sounds: Normal, physiologic split S2 sound present Peripheral pulses: radial pulses present and posterior tibial pulses present GI Inspection: No distended, No Abdominal panniculus present and Yes obesity Palpation (GI): Soft to palpation, nontender, no guarding, not rigid and No hepatosplenomegaly present Percussion: Yes normal to percussion Auscultation: normal bowel sounds Rectal Exam - Male: Yes deferred Skin General skin exam: no rashes or lesions noted, turgor normal, skin not dry, no jaundice, No spider nevi and no striae Rashes: no rashes Nails: normal Neuro General: oriented to person, oriented to place and oriented to time Cranial nerves: Yes Equal, round and reactive pupils present and Yes Normal hearing present Speech: No Abnormal speech present Extrem General: Yes normal to inspection, No clubbing, No cyanosis and No edema Psych Appearance: grossly normal and well kempt Mental Status: mental status grossly normal Speech and movement: Normal speech and movement present Affect: normal affect Attitude: cooperative Thought process: Normal thought process present and not confabulating Thought content: Normal thought content present Insight: Limited insight present (Psych) Judgement: Limited judgement present (Psych) Assessment & Plan Assessment & Plan (1) Chronic idiopathic constipation: Code(s): K59.04 - Chronic idiopathic constipation Category: Medical (2) Bilateral lower abdominal cramping: Code(s): R10.31 - Right lower quadrant pain; R10.32 - Left lower quadrant pain Category: Medical (3) GERD (gastroesophageal reflux disease): Code(s): K21.9 - Gastro-esophageal reflux disease without esophagitis Category: Medical Plan [place] [facility] HE continues to do well on hie omeprazole and senna and fiber. HTe RUQ pain did not return. ROV 6 mos Medications: Changed From methylcellulose (laxative) 1,000 mg (2 x 500 mg) PO DAILY 60 tabs 6RF K59.04 - Chronic idiopathic constipation, R10.31 - Right lower quadrant pain, R10.32 - Left lower quadrant pain To methylcellulose (laxative) (Citrucel) 1,000 mg (2 x 500 mg) PO DAILY 60 tabs 6RF K59.04 - Chronic idiopathic constipation, R10.31 - Right lower quadrant pain, R10.32 - Left lower quadrant pain Refilled omeprazole 20 mg PO QAM 30 caps 6RF sennosides (senna) 25.8 mg (3 x 8.6 mg) PO BEDTIME PRN 60 tabs 6RF for constipation Coding Level of Care Code Est Pt Level 3 (25569) Diagnoses Chronic idiopathic constipation K59.04 Bilateral lower abdominal cramping R10.31; R10.32 GERD (gastroesophageal reflux disease) K21.9
[2024-03-31 15:05] VITALS: BP 131/88; PULSE 78; BMI 38.6
== END 2024-03-31 15:33 | disposition home or self-care (01) ==
PROVIDERS: Visit Provider Nurse Practitioner
DX: K59.04 Chronic idiopathic constipation (principal); R10.31 Right lower quadrant pain; R10.32 Left lower quadrant pain; K21.9 Gastro-esophageal reflux disease without esophagitis
CPT/HCPCS: 99213

== ENCOUNTER → 2024-03-31 14:53 | Outpatient (BNVA) | payer MEDICAID, SELFPAY | PROVIDERS: Visit Provider Nurse Practitioner | DX: K59.04 Chronic idiopathic constipation (principal); R10.31 Right lower quadrant pain; R10.32 Left lower quadrant pain; K21.9 Gastro-esophageal reflux disease without esophagitis | CPT/HCPCS: 99212 ==

== ENCOUNTER 2024-06-13 15:58 | Emergency (ER) | payer MEDICAID, SELFPAY ==
[2024-06-13 16:38] VITALS: BP 123/71; PULSE 89; RESP 18; TEMP 36.6; O2SAT 96; BMI 37.4
--- NOTE | 2024-06-13 16:44 | ED_ITS ---
HPI - Wound/Laceration General Chief Complaint: Wound/Laceration Stated Complaint: Finger lac Time Seen by Provider: 06/13/24 16:43 Source: patient Mode of arrival: ambulatory Limitations: no limitations History of Present Illness ED Provider: Daen STEPHENS HPI narrative: 58 yold male with pmh of DM presents to the ED for right 5th finger laceration that occurred around 08am after being cut by metal piece of mirri he was mounting. patient states uptodate with tdap. Patient states no other complaints Related Data Home Medications ?Medication ?Instructions ?Recorded ?Confirmed metformin 500 mg tablet 1,000 mg PO BID 07/24/20 02/23/22 amlodipine 10 mg tablet 10 mg PO QAM 01/29/22 02/23/22 aripiprazole 30 mg tablet 30 mg PO BEDTIME 01/29/22 02/23/22 duloxetine 20 mg capsule,delayed 1 cap PO QAM 02/23/22 02/23/22 release loratadine 10 mg tablet 1 tab PO DAILY 02/23/22 02/23/22 mirtazapine 45 mg tablet 1 tab PO BEDTIME 02/23/22 02/23/22 olopatadine 0.2 % eye drops 1 drp ophthalmic (eye) DAILY 02/23/22 02/23/22 prazosin 5 mg capsule 4 cap PO BEDTIME 02/23/22 02/23/22 alcohol swabs (Alcohol Prep Pads) 0 pad topical DAILY 07/29/22 aspirin 81 mg tablet,delayed 81 mg PO QPM 07/29/22 release blood sugar diagnostic (FreeStyle #10 ea 07/29/22 Lite Strips) lancets 33 gauge (TRUEplus Lancets) #100 ea 07/29/22 rosuvastatin 40 mg tablet 40 mg PO BEDTIME 07/29/22 desvenlafaxine succinate 100 mg 100 mg PO QAM 01/27/23 tablet,extended release 24 hr (Pristiq) empagliflozin 25 mg tablet 25 mg PO QAM 07/28/23 (Jardiance) buspirone 10 mg tablet 10 mg PO TID 01/26/24 chlorthalidone 25 mg tablet 12.5 mg PO QAM 03/31/24 dulaglutide 0.75 mg/0.5 mL mg subcut QWEEK 03/31/24 subcutaneous pen injector (Trulicity) lisinopril 40 mg tablet 40 mg PO QAM 03/31/24 Previous Rx's ?Medication ?Instructions ?Recorded cyclobenzaprine 10 mg tablet 10 mg PO TID PRN muscle spasm #14 05/26/23 tabs lidocaine 5 % topical patch 1 patch topical DAILY #15 ea 05/26/23 naproxen 500 mg tablet 500 mg PO BID PRN pain #20 tabs 05/26/23 codeine 10 mg-guaifenesin 100 mg/5 10 ml PO Q6H PRN cough #237 mL 08/29/23 mL oral liquid ibuprofen 600 mg tablet 600 mg PO Q6H PRN fever or pain 08/29/23 #30 tabs calcium polycarbophil 625 mg 1,250 mg (2 x 625 mg) PO QAM #60 02/01/24 tablet (Fiber-Lax) tabs methylcellulose (laxative) 500 mg 1,000 mg (2 x 500 mg) PO DAILY #60 03/31/24 tablet (Citrucel) tabs omeprazole 20 mg capsule,delayed 20 mg PO QAM #30 caps 03/31/24 release sennosides 8.6 mg tablet (senna) 25.8 mg (3 x 8.6 mg) PO BEDTIME 03/31/24 PRN for constipation #60 tabs cephalexin 500 mg capsule 500 mg PO QID 7 days #28 caps 06/13/24 Allergies Allergy/AdvReac Type Severity Reaction Status Date / Time Penicillins [PENICILLINS] Allergy Intermediate RASH Verified 06/13/24 16:40 Review of Systems 2 Review of Systems: Right index finger laceration Yes all other systems are reviewed and are negative COUNT INCLUDES THE [facility] Past Medical History Medical History HTN (hypertension) Intertrigo Anxiety Depression C. difficile colitis Diabetes Surgical History H/O colonoscopy Family History Family History Mother Cancer Father Cancer Maternal Uncle Cancer Social History Social History Alcohol intake: former Patient Tobacco Use Status: Never used Tobacco Advance Directives: No Advance Directives Information Provided: No Current occupational status: unemployed Current occupation: rt handed Physical Exam 2 Vital Signs: Vital Signs: Last Vital Signs Temp 97.9 F 06/13/24 18:17 Pulse 89 06/13/24 18:17 Resp 18 06/13/24 18:17 BP 123/71 06/13/24 18:17 Pulse Ox 96 06/13/24 18:17 O2 Del Method Room Air 06/13/24 18:17 BMI result Body Mass Index 37.4 Const: General: cooperative, healthy appearing, comfortable, no acute distress, well developed, alert and awake Orientation/consciousness: patient oriented x3 HEENT: Head: Yes normal to inspection, Yes No palpable skull fracture present, Yes normocephalic and Yes atraumatic Eyes: General: appearance normal, both eyes and all related structures Neck: Neck: Yes normal visual inspection, Yes full ROM, Yes no lymphadenopathy, Yes no meningeal signs, Yes trachea midline, Yes supple, No anterior neck swelling and No tender Chest: Chest palpation & inspection: normal inspection of the chest and normal palpation of entire chest wall Resp: Effort & Inspection: normal respiratory effort and able to speak in complete sentences Auscultation: clear to auscultation bilaterally Cardio: Jugular venous distension: no JVD Heart sounds: S1 normal heart sound present and S2 normal heart sound present GI: Inspection: Yes normal to inspection Palpation (GI): Soft to palpation, not firm, nontender, no guarding and not rigid : General: Yes no CVA tenderness Back/Spine/Pelvis: Back: no CVA tenderness and No back tenderness Skin: General skin exam: no rashes or lesions noted, elasticity normal and turgor normal Neuro: General: patient oriented x3, gait normal, tone normal, moves all extremities, Normal light touch and pain sensation, no meningeal signs, no focal motor deficits, CN's II-XI intact bilaterally and normal sensation to monofilament Extrem: General: Yes normal to inspection and Yes full ROM Hand/finger images: 1. Positive for skin tear more abrasion. Negative for active bleeding. Negative for any signs of tendon or nerve injury. Negative for any bluish black discoloration, redness, pus discharge, foul odor, stiffness. Capillary refill intact. Rest of extremity normal. Motor/neuro/vascular exam intact. Psych: Appearance: grossly normal, well kempt and not disheveled Medications Administered Discontinued Medications Generic Name Dose Route Start Last Admin Trade Name Freq PRN Reason Stop Dose Admin Diphtheria/Tetanus/Acell Pertussis 0.5 ml 06/13/24 16:43 06/13/24 18:04 Diphth,Pertus(Acell),Tet Adult 0.5 Ml Syringe IM 06/13/24 16:44 0.5 ml .ONCE ONE Administration Medical Decision Making Medical Decision Making MDM Narrative: 58-year-old male with history of diabetes presents ED for right 5th finger laceration. Evaluation no need for any x-ray or sutures. Patient will need Tdap and antibiotics to prevent infection due to history of diabetes. Not suspecting nerve injury, muscle osteomyelitis, fracture, tendon rupture, osteomyelitis. Patient's splint worrisome signs informed to return to the ED immediately. Differential Diagnosis Differential Diagnoses: The differential diagnosis associated with the presentation includes (Laceration, skin tear, abrasion) Admission/Observation Consideration of admission/observation: Escalation of care including admission/observation considered Independent Historian Clinical information obtained from an independent historian. History obtained from or confirmed by: Other (Patient) External Record Review External record reviewed: Other (Prior visits) Prescription Management I considered prescription management with: Antibiotic Discharge Plan Discharge Clinical Impression: Abrasion Patient Disposition: Home, Self-Care Instructions: Abrasion (ED) Additional Instructions: Return to ED immediately for any swelling, redness, pus discharge, foul odor, bluish black discoloration, stiffness, fever, chills, or any other concerning symptoms. Recommend follow-up with primary care provider Prescriptions: New cephalexin 500 mg capsule 500 mg PO QID 7 Days Qty: 28 0RF No Action Fiber-Lax 625 mg tablet 1,250 mg PO QAM Qty: 60 6RF prazosin 5 mg capsule 4 cap PO BEDTIME mirtazapine 45 mg tablet 1 tab PO BEDTIME loratadine 10 mg tablet 1 tab PO DAILY duloxetine 20 mg capsule,delayed release(DR/EC) 1 cap PO QAM olopatadine 0.2 % drops 1 drp ophthalmic (eye) DAILY cyclobenzaprine 10 mg tablet 10 mg PO TID PRN (Reason: muscle spasm) Qty: 14 0RF lidocaine 5 % adhesive patch,medicated 1 patch topical DAILY Qty: 15 0RF Rx Instructions: leave on most painful area for up to 12 hrs naproxen 500 mg tablet 500 mg PO BID PRN (Reason: pain) Qty: 20 0RF codeine-guaifenesin 10-100 mg/5 mL liquid 10 ml PO Q6H PRN (Reason: cough) Qty: 237 0RF ibuprofen 600 mg tablet 600 mg PO Q6H PRN (Reason: fever or pain) Qty: 30 0RF metformin 500 mg tablet 1,000 mg PO BID desvenlafaxine succinate [Pristiq] 100 mg tablet extended release 24 hr 100 mg PO QAM aripiprazole 30 mg tablet 30 mg PO BEDTIME amlodipine 10 mg tablet 10 mg PO QAM (DME) lancets [TRUEplus Lancets] 33 gauge misc See Rx Instructions .ROUTE TID Qty: 100 Rx Instructions: As directed rosuvastatin 40 mg tablet 40 mg PO BEDTIME aspirin 81 mg tablet,delayed release (DR/EC) 81 mg PO QPM alcohol swabs [Alcohol Prep Pads] Pads, Medicated 0 pad topical DAILY (DME) FreeStyle Lite Strips Strip See Rx Instructions .ROUTE TID Qty: 10 Rx Instructions: As directed Jardiance 25 mg tablet 25 mg PO QAM buspirone 10 mg tablet 10 mg PO TID Trulicity 0.75 mg/0.5 mL pen injector subcut QWEEK lisinopril 40 mg tablet 40 mg PO QAM chlorthalidone 25 mg tablet 12.5 mg PO QAM omeprazole 20 mg capsule,delayed release(DR/EC) 20 mg PO QAM Qty: 30 6RF sennosides [senna] 8.6 mg tablet 25.8 mg PO BEDTIME PRN (Reason: for constipation) Qty: 60 6RF Citrucel 500 mg tablet 1,000 mg PO DAILY Qty: 60 6RF Interventions: ED Discharge Assessment Last Done: 06/13/24 18:17 Discharge Date/Time: 06/13/24 18:18 Print Language: Italian
[2024-06-13] MEDS: Diphth,Pertus(ACell),Tet Adult 0.5 ML SYRINGE IM (18:04)
[2024-06-13 18:17] VITALS: BP 123/71; PULSE 89; RESP 18; TEMP 36.6; O2SAT 96
== END 2024-06-13 18:18 | disposition home or self-care (01) ==
PROVIDERS: Emergency Provider Internal Medicine
DX: S60.416A Abrasion of right little finger, initial encounter (principal); S61.216A Laceration without foreign body of right little finger without damage to nail, initial encounter; M79.641 Pain in right hand; W26.8XXA Contact with other sharp object(s), not elsewhere classified, initial encounter; Y93.89 Activity, other specified; Y92.89 Other specified places as the place of occurrence of the external cause; Y99.8 Other external cause status; Z23 Encounter for immunization; Z79.899 Other long term (current) drug therapy
CPT/HCPCS: 90471; 90715; 99282; 99284

== ENCOUNTER 2024-09-12 15:15 | Outpatient (AMB) | payer MEDICAID, SELFPAY ==
[2024-09-12 15:18] VITALS: BP 136/89; PULSE 73; BMI 38.4
--- NOTE | 2024-09-12 15:18 | MHC.OFFVIS ---
Vital Signs 09/12/24 15:18 Height 5 ft 7 in Weight 245 lb 2.464 oz BMI 38.4 BP 136/89 Blood Pressure Location Lt brachial Position Sitting Pulse 73 Intake Visit Reasons: 6 month follow up Intake Note: Norebrt returns in 6 months follow up of constipation. CC: Patient reports having diarrhea a few times per month. Denies other GI symptoms today. 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 Accompanied by: Self / Same As Patient Allergies Penicillins [PENICILLINS] Allergy (Intermediate, Verified 09/12/24 15:29) RASH HPI HPI 6 month follow up: Details: Assessment & Plan (1) Chronic idiopathic constipation: Code(s): K59.04 - Chronic idiopathic constipation Category: Medical (2) Bilateral lower abdominal cramping: Code(s): R10.31 - Right lower quadrant pain; R10.32 - Left lower quadrant pain Category: Medical (3) GERD (gastroesophageal reflux disease): Code(s): K21.9 - Gastro-esophageal reflux disease without esophagitis Category: Medical Plan [place] #[facility] [employer] HE continues to do well on hie omeprazole and senna and fiber. HTe RUQ pain did not return. ROV 6 mos Medications: Changed From methylcellulose (laxative) 1,000 mg (2 x 500 mg) PO DAILY 60 tabs 6RF K59.04 - Chronic idiopathic constipation, R10.31 - Right lower quadrant pain, R10.32 - Left lower quadrant pain To methylcellulose (laxative) (Citrucel) 1,000 mg (2 x 500 mg) PO DAILY 60 tabs 6RF K59.04 - Chronic idiopathic constipation, R10.31 - Right lower quadrant pain, R10.32 - Left lower quadrant pain Refilled omeprazole 20 mg PO QAM 30 caps 6RF sennosides (senna) 25.8 mg (3 x 8.6 mg) PO BEDTIME PRN 60 tabs 6RF for constipation TODAY'S VISIT [place] #[place]orna [employer] He continues to do well on his omeprazole and senna and fiber. He has had no return of the pain he was experiencing when I 1st started treating him. Return office visit in 6 months [facility], [facility] Medical History HTN (hypertension) Intertrigo Anxiety Depression C. difficile colitis Diabetes Surgical History H/O colonoscopy Family History Mother Cancer Father Cancer Maternal Uncle Cancer Social History Alcohol intake: former Patient Tobacco Use Status: Never used Tobacco Current occupational status: unemployed Current occupation: rt handed Review of Systems Const Denies fatigue, Denies fever(s), Denies night sweats, Denies poor appetite and Denies weight loss ENT Reports Normal hearing present, Denies dental pain, Denies dysphagia, Denies hearing loss, Denies mouth pain, Denies odynophagia, Denies throat swelling, Denies tongue swelling and Reports other (Dentition adequate) Card Reports no additional complaints Resp Reports no additional complaints GI Details: Denies abdominal pain, Denies melena, Denies bloating, Denies hematochezia, Reports constipation, Denies GI cramping, Denies dysphagia, Denies excessive flatus, Denies early satiety, Reports heartburn, Denies diarrhea, Denies nausea, Denies odynophagia, Denies vomiting and Denies hematemesis Skin/Breast Denies pruritus, Denies lesions, Denies rash and Denies jaundice Neuro Reports Normal hearing present and Denies Abnormal speech present Endo Denies fatigue Aller/Immun Denies throat swelling and Denies tongue swelling Physical Exam Vital Signs: Last Vital Signs Pulse 73 09/12/24 15:18 BP 136/89 09/12/24 15:18 BMI result Body Mass Index 38.4 Const General: cooperative, no acute distress, well developed and well groomed Nutritional Appearance: well nourished and obese morbidly obese Orientation/consciousness: oriented to person, oriented to place and oriented to time Limitations: language barrier HEENT Head: Yes normocephalic and Yes atraumatic Eyes General: appearance normal, both eyes and all related structures Pupils: Equal, round and reactive pupils present Neck Neck: Yes normal visual inspection and Yes no lymphadenopathy Thyroid: Thyroid normal Resp Effort & Inspection: normal respiratory effort and able to speak in complete sentences Auscultation: clear to auscultation bilaterally Cardio Rate: regular rate Rhythm: regular rhythm Heart sounds: Normal, physiologic split S2 sound present Peripheral pulses: radial pulses present and posterior tibial pulses present GI Inspection: No distended, Yes Abdominal panniculus present and Yes obesity Palpation (GI): Soft to palpation, nontender, no guarding, not rigid and No hepatosplenomegaly present Percussion: Yes normal to percussion Auscultation: normal bowel sounds Rectal Exam - Male: Yes deferred Skin General skin exam: no rashes or lesions noted, turgor normal, skin not dry, no jaundice, No spider nevi and no striae Rashes: no rashes Nails: normal Neuro General: oriented to person, oriented to place and oriented to time Cranial nerves: Yes Equal, round and reactive pupils present and Yes Normal hearing present Speech: No Abnormal speech present Extrem General: Yes normal to inspection, No clubbing, No cyanosis and No edema Psych Appearance: grossly normal and well kempt Mental Status: mental status grossly normal Speech and movement: Normal speech and movement present Affect: normal affect Attitude: cooperative Thought process: Normal thought process present and not confabulating Thought content: Normal thought content present Insight: Limited insight present (Psych) Judgement: Limited judgement present (Psych) Assessment & Plan Assessment & Plan (1) Chronic idiopathic constipation: Code(s): K59.04 - Chronic idiopathic constipation Category: Medical (2) GERD (gastroesophageal reflux disease): Code(s): K21.9 - Gastro-esophageal reflux disease without esophagitis Category: Medical Plan [place] #[employer]orna [employer] He continues to do well on his omeprazole and senna and fiber. He has had no return of the pain he was experiencing when I 1st started treating him. Return office visit in 6 months Medications: Refilled methylcellulose (laxative) (Citrucel) 1,000 mg (2 x 500 mg) PO DAILY 60 tabs 6RF K59.04 - Chronic idiopathic constipation, R10.31 - Right lower quadrant pain, R10.32 - Left lower quadrant pain sennosides (senna) 25.8 mg (3 x 8.6 mg) PO BEDTIME PRN 60 tabs 6RF for constipation omeprazole 20 mg PO QAM 30 caps 6RF Coding Level of Care Code Est Pt Level 3 (72936) Diagnoses Chronic idiopathic constipation K59.04 GERD (gastroesophageal reflux disease) K21.9
== END 2024-09-12 15:46 | disposition home or self-care (01) ==
PROVIDERS: Visit Provider Nurse Practitioner
DX: K59.04 Chronic idiopathic constipation (principal); K21.9 Gastro-esophageal reflux disease without esophagitis
CPT/HCPCS: 99213

== ENCOUNTER → 2024-09-12 15:15 | Outpatient (BNVA) | payer MEDICAID, SELFPAY | PROVIDERS: Visit Provider Nurse Practitioner | DX: K59.04 Chronic idiopathic constipation (principal); K21.9 Gastro-esophageal reflux disease without esophagitis; R10.31 Right lower quadrant pain; R10.32 Left lower quadrant pain | CPT/HCPCS: 99212 ==

== ENCOUNTER 2025-01-04 16:51 | Emergency (ER) | payer OTHER, MEDICAID, SELFPAY ==
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
[2025-01-04 16:56] VITALS: BP 180/98; PULSE 87; O2SAT 95
[2025-01-04 17:32] VITALS: BP 155/91; PULSE 74; RESP 16; TEMP 37; O2SAT 96; BMI 37.6
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
[2025-01-04 20:33] VITALS: BP 154/88; PULSE 61; RESP 16; TEMP 35.7; O2SAT 97
[2025-01-04 20:57] VITALS: BP 154/88; PULSE 61; RESP 16; TEMP 35.7; O2SAT 97
== END 2025-01-04 20:58 | disposition home or self-care (01) ==
LOC: HO.ED 20:54
PROVIDERS: Emergency Provider Emergency Medicine
DX: S40.022A Contusion of left upper arm, initial encounter (principal); M54.2 Cervicalgia; M79.602 Pain in left arm; V03.90XA Pedestrian on foot injured in collision with car, pick-up truck or van, unspecified whether traffic or nontraffic accident, initial encounter; Y93.9 Activity, unspecified; Y92.410 Unspecified street and highway as the place of occurrence of the external cause; Y99.8 Other external cause status; Z79.899 Other long term (current) drug therapy
CPT/HCPCS: 73090; 73110; 73120; 99283

== ENCOUNTER → 2025-01-04 17:34 | Outpatient (BNV) | payer MEDICAID, SELFPAY | PROVIDERS: Visit Provider Radiology Diagnostic Radiology | DX: S50.12XA Contusion of left forearm, initial encounter (principal); V89.0XXA Person injured in unspecified motor-vehicle accident, nontraffic, initial encounter | CPT/HCPCS: 73090; 73110; 73120 ==

== ENCOUNTER 2025-01-12 11:46 | Outpatient (REF) | payer OTHER, SELFPAY ==
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
--- OUTSIDE RECORDS SUMMARY | 2025-01-12 12:19 | XMS_ITS | Encounter Summary ---
Author Organization [employer] Address [address] [facility] [address] [place] [address] Care Team Providers Care Heavy Truck Mechanic Name Role Phone [facility] Primary Care Provider [phone] Reason for Visit * Reason Onset Date Comments Appointment Request 01/08/2025 Encounter Details Date Type Department Care Team ([facility] st Contact Info) Description 01/08/2025 Telephone [facility] [address] [place] [address] [facility] [address] [place] [address] Appointment Request Social History Tobacco Use Types Packs/Day Years Used Date Smoking Tobacco: Never Passive Smoke Exposure: Never Smokeless Tobacco: Never Alcohol Use Standard Drinks/Week Comments Never 0 (1 standard drink = 0.6 oz pur e alcohol) Depression Answer Date Recorded Patient Health Questionnaire-9 Score 0 07/12/2024 Patient Health Questionnaire-9 Score 0 07/12/2024 Last PHQ-9: Questionnaire Data Not on file 1 09/11/2023 Housing Stability Answer Date Recorded What is your housing situation today? I have cherelle heard 07/12/[address] you li ve. Do you have problems with any of the following? None of the above 07/12/2024 Food Insecurity Answer Date Recorded Within the past 12 months, y ou worried that your food would run out before you got money to buy more: Never True 07/12/2024 Within the past 12 months,th e food you bought just didn't last and you didn't have enough money to get more: Never True 02/2024 Transportation Answer Date Recorded In the past 12 months, has l ack of transportation kept you from medical appts, meetings, work or from getting things needed for daily living? No 07/12/2024 Utilities Answer Date Recorded In the past 12 months, has t he electric, gas, oil or water company threatened to shut off services in your home? No 07/12/2024 Depression Answer Date Recorded Patient Health Questionnaire-2 Score 0 07/12/2024 Internet Access Answer Date Recorded Internet Access Q1 Yes 07/12/2024 Internet Access Q2 Not on file 07/12/2024 Sex and Gender Information Value Date Recorded Sex Assigned at Male 07/06/2022 10:31 AM EDT Legal Sex Male 10:31 AM EDT Gender Identity Male 07/06/2022 10:31 AM EDT Sexual Orientation Straight 07/06/2022 10 :31 AM EDT documented as of this encounter Miscellaneous Notes * Telephone Encounter - Radha Rosales MA - 01/08/2025 4:04 PM EDT Spoke with patient reschedule appointment 01/12/25 at 11:30am. * Telephone Encounter - Meg Sharpe - 01/08/2025 3:31 PM EDT Tc from pt requesting to r/s office visit from 01/11/25 due to having another appointment on the same day. documented in this encounter Plan of Treatment Upcoming Encounters Date Type Department Care Team (Late st Contact Info) Description 02/12/2025 8:00 AM EDT Office Visit [facility] [address] [place] [address] Meg Beltran [address] [place] [address] documented as of this encounter Goals Goal Patient Goal Type Associated Problems Recent Progress Patient-Stated? Author Blood Pressure < 140/90 Blood Pressure 140/85( 025 11:07 AM EDT) No Patricia Parikh, PharmD documented as of this encounter Visit Diagnoses Not on filedocumented in this encounter Additional Health Concerns Assessment Noted Time PHQ-9 Depression Total Score: 0 07/12/20 24 10:28 AM EST documented as of this encounter Care Teams Heavy Truck Mechanic Relationship Specialty Start Date End Date Yolanda Card FNP [address] [place] [id number] PCP - General Family Medicine 06/04/21 documented as of this encounter
--- OUTSIDE RECORDS SUMMARY | 2025-01-12 12:19 | XMS_ITS | Encounter Summary ---
Author Organization [employer] Address [address] [facility] [address] [place] [address] Care Team Providers Care Cripple Worker Name Role Phone Stephie Yolanda HEALTH OCCUPATIONS TEACHER Primary Care Provider [phone] Encounter Details Date Type Department Care Team (Latest Contact Info) Description 01/08/2025 Travel Social History Tobacco Use Types Packs/Day Years [...] AM EDT documented as of this encounter Plan of Treatment Upcoming Encounters Date Type Department Care Team (Late st Contact Info) Description 02/12/2025 8:00 AM EDT Office Visit [facility] [address] [place] [address] Ruby, Meg [address] [place] [address] documented as of this encounter Goals Goal [...] documented as of this encounter Care Teams Cripple Worker Relationship Specialty Start Date End Date Yolanda Card FNP [address] [place] [address] PCP - General Family Medicine 06/04/21 documented as of this encounter
--- OUTSIDE RECORDS SUMMARY | 2025-01-12 12:19 | XMS_ITS | Encounter Summary ---
Author Organization [employer] Address [address] [facility] [address] [place] [address] Care Team Providers Care Painter And Decorator Name Role Phone Stephie Yolanda KNURLING MACHINE TENDER Primary Care Provider [phone] Encounter Details Date Type Department Care Team (Late st Contact Info) Description 11/06/2022 Abstract [facility] [address] [place] [address] Eugenio Rice DDS [address] [place] [address] Social History Tobacco Use Types Packs/Day Years Used Date Smoking Tobacco: Never Passive Smoke Exposure: Never Smokeless Tobacco: Never Alcohol Use Standard Drinks/Week Comments Never 0 (1 standard drink = 0.6 oz pur e alcohol) Sex and Gender Information Value Date Recorded Sex Assigned at Male 07/06/2022 10:31 AM EDT Legal Sex Male 10:31 AM EDT Gender Identity Male 07/06/2022 10:31 AM EDT Sexual Orientation Straight 07/06/2022 10 :31 AM EDT COVID-19 Exposure Response Date Recorded In the last 10 days, have yo u been in contact with someone who was confirmed or suspected to have Coronavirus/COVID-19? No / Unsure 10/29/2022 9:17 AM EST documented as of this encounter Plan of Treatment Upcoming Encounters Date Type Department Care Team (Late st Contact Info) Description 02/12/2025 8:00 AM EDT Office Visit [facility] [address] [place] [address] Meg Beltran [address] [place] [address] documented as of this encounter Goals Goal Patient Goal Type Associated Problems Recent Progress Patient-Stated? Author Blood Pressure < 140/90 Blood Pressure 140/85( 025 11:07 AM EDT) No Patricia Parikh, PharmD documented as of this encounter Visit Diagnoses Not on filedocumented in this encounter Additional Health Concerns Assessment Noted Time PHQ-9 Depression Total Score: 8 10/15/19 23 3:34 PM EST documented as of this encounter Care Teams Painter And Decorator Relationship Specialty Start Date End Date Yolanda Card FNP [address] [place] [id number] PCP - General Family Medicine 06/04/21 documented as of this encounter
--- OUTSIDE RECORDS SUMMARY | 2025-01-12 12:19 | XMS_ITS | Clinical Summary ---
Author Organization [employer] Address [address] [facility] [facility] [address] [place] [address] Care Team Providers Care [employer]erry [employer] Agent Name Role Phone [facility] Primary Care Provider [phone] Allergies Active Allergy Reactions Criticality Noted Date Comments Penicillins 03/25/2017 Other reaction(s): Rash Medications ARIPiprazole (Abilify) 30 MG tablet take 1 tablet by oral route every day Active diclofenac sodium 3 % gel apply by topical route 2 times every day to lesion areas 022 Active docusate sodium (Colace) 100 MG capsule take 1 capsule by oral route 2 times every day as needed 021 Active ergocalciferol (Vitamin D-2) 1.25 MG (12134 UT) capsule take 1 capsule by oral route every week 020 Active Loratadine (Claritin) 10 MG capsule Take one table by mouth daily 022 Active mirtazapine (Remeron) 45 MG tablet take 1 tablet by oral route every day before bedtime Active prazosin (Minipress) 5 MG capsule take 4 capsule by oral route every day Active SM Fiber Laxative 500 MG tablet TAKE 2 TABLETS BY MOUTH ONCE DAILY 022 Active senna (Senokot) 8.6 MG tablet TAKE 2 TABLETS BY MOUTH EVERY DAY AT BEDTIME FOR CONSTIPATION 023 Active desvenlafaxine (Pristiq) 100 MG 24 hr tablet Take 100 mg by mouth in the morning. Do not crush, chew, or split. Active olopatadine (Pataday) 0.2 % ophthalmic solutionIndicati ons:Dry eyes, bilateral instill 1 drop by ophthalmic route every day into affected eye(s) 30 mL 1 023 Active omeprazole (PriLOSEC) [address] Evelia ns:Dyspepsia TAKE 1 CAPSULE BY MOUTH EVERY MORNING BEFORE BREAKFAST 90 capsule 1 023 Active naproxen (Naprosyn) 500 MG tablet Take 500 mg by mouth if needed in the morning and at bedtime. Active cyclobenzaprine (Flexeril) 10 MG tablet Take 10 mg by mouth if needed in the morning, at noon, and at bedtime. 023 Active Jardiance 25 MGIndications:Ty pe 2 diabetes mellitus with hyperglycemia, without long-term current use of insulin (CMS/[facility]) TAKE 1 TABLET BY MOUTH EVERY MORNING 90 tablet 1 Active empagliflozin (Jardiance) 25 MGIndications:Ty pe 2 diabetes mellitus with hyperglycemia, without long-term current use of insulin (CMS/[facility]) Take 1 tablet (25 mg) by mouth Once per day. 90 tablet 3 024 2024 Active glucose blood (FREESTYLE LITE) test stripIndications :Type 2 diabetes mellitus with hyperglycemia, without long-term current use of insulin (CMS/[facility]) Check blood sugar twice daily 100 each 11 024 Active chlorthalidone (Hygroton) 25 MG tablet Take 0.5 tablets (12.5 mg) by mouth Once per day. 45 tablet 3 024 2024 Active metFORMIN (Glucophage) 500 MG tablet TAKE 2 TABLETS BY MOUTH TWICE DAILY IN THE MORNING AND EVENING 360 tablet 1 024 Active Aspirin Low Dose 81 MG EC tabletIndication s:Type 2 diabetes mellitus with hyperglycemia, without long-term current use of insulin (CMS/HCC) TAKE 1 TABLET BY MOUTH EVERY EVENING 90 tablet 3 025 Active lisinopril 40 MG tabletIndication s:Primary hypertension TAKE 1 TABLET BY MOUTH EVERY MORNING 90 tablet 3 025 Active TRUEplus Lancets 33G miscIndications: Type 2 diabetes mellitus without complication, without long-term current use of insulin (CMS/HCC) USE TO TEST BLOOD SUGAR THREE TIMES DAILY 100 each 11 025 Active Alcohol Swabs (Alcohol Prep) 70 % padsIndications: Type 2 diabetes mellitus without complication, without long-term current use of insulin (CMS/HCC) USE DIRECTED ONCE DAILY 100 each 11 025 Active rosuvastatin (Crestor) 40 MG tabletIndication s:Mixed hyperlipidemia TAKE 1 TABLET BY MOUTH AT BEDTIME 90 tablet 1 Active amLODIPine (Norvasc) 10 MG tabletIndication s:Primary hypertension TAKE 1 TABLET BY MOUTH EVERY MORNING 90 tablet 1 Active Fiber-Lax 625 MG tablet take 2 tablets by mouth once daily in the morning Active busPIRone (Buspar) 10 MG tablet Take 1 tablet by mouth every 6 (six) hours during the day. Active Trulicity 0.75 MG/0.5ML solution auto-injectorInd ications:Type 2 diabetes mellitus with hyperglycemia, without long-term current use of insulin (CMS/[facility]) INJECT ONE PEN (=0.75MG) SUBCUTANEOUSLY ONCE A WEEK DIRECTED 2 mL 2 Active meloxicam (Mobic) 15 MG tablet Take 1 tablet (15 mg) by mouth Once per day. 30 tablet 025 2025 Active acetaminophen (Tylenol) 500 MG tablet Take 1 tablet (500 mg) by mouth every 6 (six) hours if needed for mild pain. 30 tablet Active Heat Wraps (Heat Therapy Patches) [facility] Use 1 patch on shoulder 30 each Active lidocaine (Lidoderm) 5 % patch Apply 1 patch topically Once per day. Remove & discard patch within 12 hours or as directed by MD. 30 patch 025 2024 Active lidocaine (Lidoderm) 5 % patch apply 1 patch by topical route every day (May wear up to 12hours.) 022 2024 Discontinued(R eorder (will not trigger notification to Pharmacy)) busPIRone (Buspar) 5 MG tablet Take 5 mg by mouth 3 times daily. 023 2024 Discontinued(I neffective) dulaglutide (Trulicity) 0.75 MG/0.5ML solution pen-injectorIndi cations:Type 2 diabetes mellitus with hyperglycemia, without long-term current use of insulin (CMS/[facility]) Inject 0.75 mg under the skin 1 (one) time per week. 4 each 11 024 2024 Discontinued acetaminophen (Tylenol) 500 MG tablet Take 1 tablet (500 mg) by mouth every 6 (six) hours if needed for mild pain. 30 tablet 025 2024 Discontinued(R eorder (will not trigger notification to Pharmacy)) Hospital, Clinic, or Other Facility Administered Medication Ordered Dose Route Frequency Start Date End Date Status ketorolac (Toradol) injection 30 mgIndications:Tendinosis of left rotator cuff 30 mg IM Once 01/12/2025 01/12/2025 Ended Active Problems Problem Noted Date Diagnosed Date Tendinosis of left rotator cuff 01/12/2025 Assessment & Plan (01/12/2025 11:25 AM EDT): I advised to rest, apply heat to affected area, I rx heat patch and lidocaine patch to use prn Take meloxicam daily x 2w then prn pain and use extra-strength Tylenol 1-2 tabs po q8h prn breakthrough pain Refer to PT Have asked the patient to be alert for new or progressive symptoms such as persistent tingling or weakness in extremities or other unexplained symptoms. Return in 3mo or earlier prn. Sprain of groin 01/12/2025 Assessment & Plan (01/12/2025 11:27 AM EDT): He must have injured the Iliopsoas muscles or one of the abductors, will refer to PT See POC above Order Xray right hip Retained dental root 12/14/2024 Severe dental caries 10/29/2022 Mood disorder 10/18/2022 Overview (10/18/2022): ?? Followed by at [facility] for psychiatry ?? Prazosin 5mg ?? Desvenlafaxine 100mg ?? Abilify 30mg Assessment & Plan (02/08/2023 9:29 AM EDT): ?? Continue current regimen ?? Denies SI or thoughts of self harm Healthcare maintenance 10/18/2022 Overview (02/08/2023): C-scope:2022, polyp. Repeat 2025 PSA: 11/2021 0.5 HCV Screen: Neg 2017 HIV Screen: Neg 2017 Assessment & Plan (02/08/2023 9:30 AM EDT): ?? Will request colonoscopy records ?? Repeat PSA ?? Accepts PCV 20 ?? Declines covid booster NARGIS (obstructive sleep apnea) 10/18/2022 Overview (10/18/2022): ?? Using CPAP Type 2 diabetes mellitus 01/15/2022 Overview (07/12/2024): Metformin 1000mg b.i.d Jardiance 25mg Maintenance Foot Exam: 07/2024 Risk 0 Eye Exam: [facility] Eye Care, UTD ASCVD: 14% Statin: Yes ASA: Yes KEVAN/ARB: Yes Encouraged regular aerobic exercise for improved glycemic control Encouraged daily foot checks Encouraged lean protein snacks and to avoid foods high in sugar and simple carbohydrates Treatment Goals: A1c goal: <7% FBG goal: <130 2 hour post prandial goal: <180 Assessment & Plan (03/22/2023 5:18 AM EDT): Lab Results Component Value Date HGBA1C 7.2 (A) 02/08/2023 Well controlled Continue current regimen Assessment & Plan (02/08/2023 9:28 AM EDT): Lab Results Component Value Date HGBA1C 7.2 (A) 02/08/2023 ?? INCREASE jardiance to 25mg daily ?? Labs ordered Assessment & Plan (10/18/2022 9:45 PM EST): Lab Results Component Value Date HGBA1C 8.3 (A) 10/15/2022 ?? START jardiance 10mg daily. Reviewed administration, risks, side effects ?? Continue metformin 1000mg b.i.d Polyp of colon 08/18/2021 Hypertensive disorder 08/18/2021 Overview (02/08/2023): ?? Lisinopril 20mg ?? Amlodipine 10mg ?? Pt has long hx of intermittent, atypical chest pain prompting multiple ED visits all with negative ACS eval ?? Cardiology (Dr. Stevenson) 2019. Per visit note cardiac cath was performed which was unremarkable and CP was thought to be non-cardiac Maintenance: BMP: 04/2022 Lipid Panel: 04/2022 ASCVD Risk: 14% - Aerobic exercise to reduce BP. Initial goal of 30 min walk 3-5x/week. Increase as tolerated. - low-sodium diet (goal: <2g/day) and heart healthy diet such as DASH to reduce BP and prevent ASCVD. - Home BP monitoring 1-2 x day with goal of <140/90. - Seek immediate medical attention for chest pain, palpitations, SOB, syncope, or sudden changes in mental status. - Do not change or discontinue current prescriptions without first consulting health care provider Assessment & Plan (01/12/2025 11:30 AM EDT): Is usually controlled, it's probably high today due to pain. Continue lisinopril and amlodipine and follow-up with PCP Reconsult as needed if BP at home continues> 140/90 Assessment & Plan (03/22/2023 5:19 AM EDT): Well controlled Continue current regimen Assessment & Plan (02/08/2023 9:29 AM EDT): ?? Continue current regimen ?? Well controlled ?? Repeat labs Assessment & Plan (10/18/2022 9:42 PM EST): Home BP averaging 140/90 ?? INCREASE lisinopril to 20mg daily Vitamin D deficiency 03/29/2017 Resolved Problems Problem Noted Date Diagnosed Date Resolved Date Influenza 09/01/2023 02/14/2024 Assessment & Plan (09/01/2023 12:35 PM EST): Significantly improving with supportive Rx, has otitis external. RTC if he has recurrent sxs, mainly fever, chills, worsening cough. counseled to get updated Covid and Influenza vax in about 1m Acute otitis externa of right ear 09/01/2023 02/14/2024 Assessment & Plan (09/01/2023 12:34 PM EST): Keep area clean and dry. Use cortisporin otic sl 3-4x per day x 10d. Re consult prn. Missing teeth, acquired 08/04/202302/04 Encounters Date Type Department Care Team Description 01/12/2025 11:30 AM EDT Office Visit [facility] MEDICINE [address] [place] [address] Lorna Kingsley MD Tendinosis of left rotator cuff (Primary Dx); Sprain of groin, initial encounter; Primary hypertension 01/12/2025 Refill [facility] [address] [place] [address] [facility] Type 2 diabetes mellitus with hyperglycemia, without long-term current use of insulin [facility]) 01/10/2025 Refill [facility]INE [address] [place] [address] [facility] Type 2 diabetes mellitus with hyperglycemia, without long-term current use of insulin ([facility]) 01/08/2025 Travel 01/08/2025 Telephone [facility] MED[facility]INE [address] [place] [address] Re[facility] Appointment Request 01/05/2025 Telephone [facility] MEDICINE [address] [place] [address] [facility] Nurse Triage; ER Follow-up; Transition Of Care (Tcm) 12/14/2024 8:00 AM EDT Office Visit [facility] ADULT DENTAL [address] [place] [address] Eugenio Rice DDS Severe dental caries (Primary Dx); Retained dental root 12/11/2024 Refill [facility] MED & PEDS [address] [place], [place] [id number] [facility] Mixed hyperlipidemia; Primary hypertension 12/04/2024 3:00 PM EDT Office Visit [facility] OPTOMETRY [address] [place] [address] Sean, Dilcia, OD Diabetes type 2, no ocular involvement (CMS/HCC) (Primary Dx); Seasonal allergic conjunctivitis; RPE mottling of macula; Early cataracts, bilateral; Presbyopia of both eyes 12/04/2024 Travel 11/27/2024 Refill [facility] MEDICINE [address] [place] [address] [facility] Type 2 diabetes mellitus without complication, without long-term current use of insulin (CMS/HCC) 11/17/2024 Population Health Risk Score [facility] () [address] [id number] Provider, Population Health Generic 11/16/2024 11:00 AM EDT Office Visit [facility] ADULT DENTAL [address] [place] [address] Mariann Darling, DDNel Dental caries (Primary Dx); Dental abscess; Open fracture of tooth, initial encounter 11/12/2024 Refill [facility] MEDICINE [address] [place] [address] [facility] Primary hypertension 10/15/2024 Refill [facility] MEDICINE [address] [place] [address] [facility] Type 2 diabetes mellitus with hyperglycemia, without long-term current use of insulin (CMS/[facility]) from Last 3 Months Immunizations Name Administration Dates Next Due Influenza Injectable Quadriv alant Preservative Free IIV4 MDCK 08/25/2021 Influenza injectable quadriv alent IIV4 with preservative 09/04/2019 Influenza injectable quadriv alent preservative free 07/10/2020 Moderna Covid-19 Vaccine 12+ 03/18/2022,02/21/20 21,01/23/2021 Pneumococcal Conjugate PCV 20 02/08/2023 Tdap 05/31/2018 Zoster, Recombinant 12/17/2020,10/15/2020 Family History Medical History Relation Name Comments Throat cancer Father Prostate cancer Father's Brother Uterine cancer Mother Prostate cancer Mother's Brother Breast cancer Sister Relation Name Status Comments Father Father's Brother Mother Mother's Brother Sister Social History Tobacco Use Types Packs/Day Years Used Date Smoking Tobacco: Never Passive Smoke Exposure: Never Smokeless Tobacco: Never Tobacco Cessation:Counseling Given: Not Answered Alcohol Use Standard Drinks/Week Comments Never 0 [...] Orientation Straight 07/06/2022 10 :31 AM EDT Last Filed Vital Signs Vital Sign Reading Time Taken Comments Blood Pressure 140/85 01/12/2025 11:07 AM EDT Pulse 84 01/12/2025 10:50 AM EDT Temperature 35.9 ??C (96.7 ??F) 01/12/2025 10:50 AM E DT Respiratory Rate 20 01/12/2025 10:50 AM EDT Oxygen Saturation 98% 01/12/2025 10:50 AM EDT Inhaled Oxygen Concentration - - Weight 108 kg (238 lb 2 oz) 01/12/2025 10:50 AM EDT Height 170.2 cm (5' 7 ) 01/12/2025 10:50 AM EDT Body Mass Index 37.3 01/12/2025 10:50 AM EDT Plan of Treatment Upcoming Encounters Date Type Department Care Team (Late st Contact Info) Description 02/12/2025 8:00 AM EDT Office Visit [facility] ADULT DENTAL [address] [place] [address] Ruby, Meg [address] [place] [address] Health Maintenance Due Date Last Done Comments CT Colonography 1967 Dental X-Ray: Bitewings 1967 Dental X-Ray: Full Mouth 1967 FIT DNA/Cologuard 1967 FIT 1967 FOBT 1967 HIV Screening 1967 Sigmoidoscopy 1967 Hepatitis C Screening 1985 Hepatitis B Vaccines (1 of 3 - 19+ 3-dose series) 1986 Dental Oral Exam 04/12/2023 10/12/2022 Dental Prophylaxis 04/12/2023 10/12/2022 COVID-19 Vaccine ( season) 2024 03/18/2022, 02/20/2021, 01/23/2021 Influenza Vaccine (#1) 2024 , 07/10/2020, 09/04/2019 Diabetes: Urine Protein Screening 03/22/2025 03/22/2024, 04/24/2022, 01/02/2021, Additional history exists Lipid Panel 03/22/2025 03/22/2024, 04/06, 01/15/2022, Additional history exists Diabetes: Hemoglobin A1C 04/05/2025 025, 07/12/2024, 02/08/2023, Additional history exists Depression Screening 07/12/2025 07/12/2024, 07/12/20 24 Diabetes: Foot Exam 07/12/2025 07/12/2024, 07/12/2024, 07/12/2024, Additional history exists SDOH Screening 09/26/2025 09/26/2024 Alcohol/Substance Use Screening 10/06/2025 10/06/2024 Tobacco Screening 01/12/2026 01/12/2025 Eye Exam 12/04/2026 12/04/2024, 11/06, 12/04/2024, Additional history exists Colonoscopy 07/15/2027 07/15/2022 Colorectal Cancer Screening 07/15/2027 DTaP/Tdap/Td Vaccines (2 - Td or Tdap) 05/31/2028 05/31/2018 RSV Patients and Patients Aged 60 years or older (1 - 1-dose 75+ series) 2042 Zoster Vaccines Completed 12/17/2020, 10/15/2020 Pneumococcal Vaccine: 50+ Years Completed 02/08/2023 HIB Vaccines Aged Out No longer eligi ble based on patient's age to complete this topic HPV Vaccines Aged Out No longer eligi ble based on patient's age to complete this topic Hepatitis A Vaccines Aged Out No long er eligible based on patient's age to complete this topic IPV Vaccines Aged Out No longer eligi ble based on patient's age to complete this topic Meningococcal Vaccine Aged Out No delores brenda eligible based on patient's age to complete this topic RSV under 20 months Aged Out No longe r eligible based on patient's age to complete this topic Rotavirus Vaccines Aged Out No longer eligible based on patient's age to complete this topic Goals Goal Patient Goal Type Associated Problems Recent Progress Patient-Stated? Author Blood Pressure < 140/90 Blood Pressure 140/85( 025 11:07 AM EDT) No Patricia Parikh PharmD Procedures Procedure Name Priority Date/Time Associated Diagnosis Comments CASE PRESENTATION, DETAILED AND EXTENSIVE TREATMENT PLANNING Routine 12/14/2024 8:00 AM EDT 28 EXTRACTION, ERUPTED TOOTH OR EXPOSED ROOT (ELEVATION/FORCEPS REMOVAL) Routine 12/14/2024 8:00 AM EDT 29 EXTRACTION, ERUPTED TOOTH OR EXPOSED ROOT (ELEVATION/FORCEPS REMOVAL) Routine 12/14/2024 8:00 AM EDT OCT, RETINA - OU - BOTH EYES Routine 12/04/2024 3:00 PM EDT RPE mottling of macula CASE PRESENTATION, DETAILED AND EXTENSIVE TREATMENT PLANNING Routine 11/16/2024 11:00 AM EDT INTRAORAL - PERIAPICAL FIRST RADIOGRAPHIC IMAGE Routine 11/16/2024 11:00 AM EDT PALLIATIVE (EMERGENCY) TREATMENT OF DENTAL PAIN - MINOR PROCEDURE Routine 11/16/2024 11:00 AM EDT POCT GLYCATED HEMOGLOBIN, TOTAL Routine 10/06/2024 9:16 AM EST Type 2 diabetes mellitus without complication, without long-term current use of insulin ([facility]) ALBUMIN, RANDOM URINE W/CREATININE Routine 03/22/2024 9:30 AM EDT Type 2 diabetes mellitus with hyperglycemia, without long-term current use of insulin ([facility]) LIPID PANEL, STANDARD Routine 03/22/2024 9:24 AM EDT Primary hypertension PROPHYLAXIS - ADULT Routine 10/12/2022 9 :00 AM EST Dental plaque Gingival bleeding PERIODIC ORAL EVALUATION - ESTABLISHED PATIENT Routine 10/12/2022 8:45 AM EST HM COLONOSCOPY Routine 07/15/2022 from Last 3 Months or Most Recently Relevant to Health Maintenance Results * OCT, Retina - OU - Both Eyes (12/04/2024 3:00 PM EDT) Dilcia Schaffer, OD - 12/18/2024 11:34 AM EDT Images from the original result were not included. OCT [facility] [employer]PRE[employer] Optical Coherence Tomography Interpretation Report Measurements: OD ??OS Macula Thickness ??287 microns ??287 microns Test findings: OD: Normal foveal contour, no cystoid macular edema (CME), small early drusen just inferior to fovea, no subretinal fluid (SRF) OS: Normal foveal contour, no cystoid macular edema (CME), no retinal pigment epithelium (RPE) disruption, no subretinal fluid (SRF) Impression and Plan: Early drusen in the right eye. Not visually significant. No treatment necessary. Will monitor at his next exam. Dilcia Estrada OD OPHTH TOMOGRAPHY Final Result * (ABNORMAL) POCT HGB A1C (10/06/2024 9:16 AM EST) Hemoglobin A1C 6.1(A) 4.0 - 6.0 % QC Media Lot # [id number] Lot# Expiration Date [id number] Blood 10/06/2024 9:16 AM EST [facility] POINT OF CARE TEST ENTER/EDIT ORDERABLES Final Result * Albumin, Random Urine W/Creatinine (03/22/2024 9:30 AM EDT) Creatinine, Urine 188.36 mg/dL [facility] Microalbumin Urine 14.0 mg/L H [facility] Microalbum Creatinine Ratio Ur 7.4 <30 ug/mg cr [facility] Comment:Albumin/Creatinine R atio Reference Ranges: Normal: < 30 ug/mg creatinine Microalbuminuria: 30 - 300 ug/mg creatinineClinical Albuminuria: > 300 ug/mg creatinine Urine 03/22/2024 9:30 AM EDT 03/22/2024 11:32 AM EDT [facility] LAB URINE ORDERABLES Final Re sult [facility] [address] [place] [address] [phone] * (ABNORMAL) Lipid Panel, Standard (03/22/2024 9:24 AM EDT) Triglycerides 138 <150 mg/dL [facility] Comment:Desirable Triglyceri de: less than 150 mg/dLBorderline High Triglyceride 150-199 mg/dLHigh Triglyceride: 200-499 mg/dLVery High Triglyceride: greater than or equal to 5OO mg/dL Cholesterol 160 <200 mg/dL [facility] Comment:Desirable Cholestero l: less than 200 mg/dLBorderline High Cholesterol: 200-239 mg/dLHigh Cholesterol: greater than 239 mg/dL LDL Cholesterol Calculated 105(H) <100 mg/dL [facility] Comment:Desirable LDL: less than 100 mg/dLNear Optimal/Above Optimal LDL: 110- 129 mg/dLBorderline High LDL: 130-159 mg/dLHigh LDL: 160-189 mg/dLVery High LDL: greater than or equal to 190 mg/dL HDL Cholesterol 28(L) >40 mg/dL [facility] Comment:Desirable HDL: great er than 40 mg/dL Note: This HDL assay may give artificially low results in patients with liver disease. Blood Venous blood specimen / Unknown 03/22/2024 9:24 AM EDT 03/22/2024 11:12 AM EDT [facility] AMORTIZATION SCHEDULE CLERK LAB BLOOD ORDERABLES Final Re sult [facility] [address] [place] [phone] [phone] * Colonoscopy (07/15/2022) Colonoscopy Normal Normal Narrative Margaret Aldana - 07/15/2022 Recommended repeat in 5 years due to family history Historical Provider MD HEALTH MAINTENANCE Final Result from Last 3 Months or Most Recently Relevant to Health Maintenance Insurance [facility] AD[facility] Care Teams [employer] Agent Relationship Specialty Start Date End Date Yolanda Card FNP [address] [place] [id number] PCP - General Family Medicine 06/04/21
--- OUTSIDE RECORDS SUMMARY | 2025-01-12 12:19 | XMS_ITS | Encounter Summary ---
Author Organization [employer] Address [address] [facility] 7t [place] [address] Care Team Providers Care Preschool Head Teacher Name Role Phone [facility] Primary Care Provider Encounter Details Date Type Department Care Team (Late st Contact Info) Description 08/11/2023 Abstract [facility] MEDICINE [address] [place] [address] [place] [facility] [address] [place] [address] Social History Tobacco Use Types Packs/Day Years Used Date Smoking Tobacco: Never Passive Smoke Exposure: Never Smokeless Tobacco: Never Alcohol Use Standard Drinks/Week Comments Never 0 (1 standard drink = 0.6 oz pur e alcohol) Depression Answer Date Recorded Patient Health Questionnaire-9 Score 0 03/19/2023 Housing Stability Answer Date Recorded What is your housing situation today? I have cherellejavier heard 07/01/[address] you li ve. Do you have problems with any of the following? None of the above 07/01/2023 Food Insecurity Answer Date Recorded Within the past 12 months, y ou worried that your food would run out before you got money to buy more: Never True 07/01/2023 Within the past 12 months,th e food you bought just didn't last and you didn't have enough money to get more: Never True Transportation Answer Date Recorded In the past 12 months, has l ack of transportation kept you from medical appts, meetings, work or from getting things needed for daily living? No 07/01/2023 Utilities Answer Date Recorded In the past 12 months, has t he electric, gas, oil or water company threatened to shut off services in your home? No 07/01/2023 Depression Answer Date Recorded Patient Health Questionnaire-2 Score 0 03/19/2023 Sex and Gender Information Value Date Recorded Sex Assigned at Male 07/06/2022 10:31 AM EDT Legal Sex Male 10:31 AM EDT Gender Identity Male 07/06/2022 10:31 AM EDT Sexual Orientation Straight 07/06/2022 10 :31 AM EDT documented as of this encounter Plan of Treatment Upcoming Encounters Date Type Department Care Team (Late st Contact Info) Description 02/12/2025 8:00 AM EDT Office Visit [facility] ADULT DENTAL [address] [place] [address] Ruby, Meg [address] [place] [address] documented as of this encounter Goals Goal Patient Goal Type Associated Problems Recent Progress Patient-Stated? Author Blood Pressure < 140/90 Blood Pressure 140/85( 025 11:07 AM EDT) No Patricia Parikh, PharmD documented as of this encounter Visit Diagnoses Not on filedocumented in this encounter Additional Health Concerns Assessment Noted Time PHQ-9 Depression Total Score: 0 03/19/20 23 3:47 PM EDT documented as of this encounter Care Teams Preschool Head Teacher Relationship Specialty Start Date End Date Yolanda Card FNP [address] [place] [address] PCP - General Family Medicine 06/04/21 documented as of this encounter
--- OUTSIDE RECORDS SUMMARY | 2025-01-12 12:19 | XMS_ITS | Encounter Summary ---
Author Organization [employer] Address [address] [facility] 7t [place] [address] Care Team Providers Care Dog Obedience Instructor Name Role Phone [facility] Primary Care Provider [phone] Reason for Visit * Reason Comments Med Refill Encounter Details Date Type Department Care Team ([facility] st Contact Info) Description 01/10/2025 Refill [facility] MEDICINE [address] [place] [address] [facility] [address] [place] [address] Type 2 diabetes mellitus with hyperglycemia, without long-term current use of insulin ([facility]) Social History Tobacco Use Types Packs/Day Years [...] Description 02/12/2025 8:00 AM EDT Office Visit [facility] ADULT DENTAL [address] [place] [address] Ruby, Meg [address] [place] [address] documented as of this encounter Goals Goal Patient Goal Type Associated Problems Recent Progress Patient-Stated? Author Blood Pressure < 140/90 Blood Pressure 140/85( 025 11:07 AM EDT) No Patricia Parikh, FeliceD documented as of this encounter Visit Diagnoses Diagnosis Type 2 diabetes mellitus with hyperglycemia, without long-term current use of insulin ([facility]) documented in this encounter Additional Health Concerns Assessment Noted Time PHQ-9 Depression Total Score: 0 07/12/20 24 10:28 AM EST documented as of this encounter Care Teams Dog Obedience Instructor Relationship Specialty Start Date End Date Yolanda Card FNP [address] [place] [address] PCP - General Family Medicine 06/04/21 documented as of this encounter
--- OUTSIDE RECORDS SUMMARY | 2025-01-12 12:19 | XMS_ITS | Encounter Summary ---
Author Organization [employer] Address [address] [facility] 7t [place] [address] Care Team Providers Care Model Making Supervisor Name Role Phone [facility] Primary Care Provider [phone] Reason for Visit * Reason Comments Med Refill Encounter Details Date Type Department Care Team (Late st Contact Info) Description 06/08/2023 Refill [facility] MEDICINE [address] [place] [address] [facility] [address] [place] [address] Social History Tobacco Use Types Packs/Day Years Used Date Smoking Tobacco: Never Passive Smoke Exposure: Never Smokeless Tobacco: Never Alcohol Use Standard Drinks/Week Comments Never 0 (1 standard drink = 0.6 oz pur e alcohol) Depression Answer Date Recorded Patient Health Questionnaire-9 Score 0 03/19/2023 Depression Answer Date Recorded Patient Health Questionnaire-2 [...] Description 02/12/2025 8:00 AM EDT Office Visit [facility] ADULT DENTAL [address] [place] [address] Meg Beltran [address] [place] [address] documented as of this encounter Goals Goal [...] documented as of this encounter Care Teams Model Making Supervisor Relationship Specialty Start Date End Date Yolanda Card FNP [address] [place] [address] PCP - General Family Medicine 06/04/21 documented as of this encounter
--- OUTSIDE RECORDS SUMMARY | 2025-01-12 12:19 | XMS_ITS | Encounter Summary ---
Author Organization [employer] Address 75 [facility] 7t [place] [address] Care Team Providers Care Pie Bakery Laborer Name Role Phone Stephie [facility] Primary Care Provider [phone] Encounter Details Date Type Department Care Team (Latest Contact Info) Description 06/27/2019 Abstract [facility] CONVERSIONS Dental, Provider, DDS Social History Tobacco Use Types Packs/Day Years Used Date Smoking Tobacco: Never Assessed Sex and Gender Information Value Date Recorded Sex Assigned at Male 07/06/2022 10:31 AM EDT Legal Sex Male 10:31 AM EDT Gender Identity Male 07/06/2022 10:31 AM EDT Sexual Orientation Straight 07/06/2022 10 :31 AM EDT documented as of this encounter Plan of Treatment Upcoming Encounters Date Type Department Care Team (Late st Contact Info) Description 02/12/2025 8:00 AM EDT Office Visit [facility] ADULT DENTAL [address] [place] [address] RubySageMeg [address] [place] [address] documented as of this encounter Visit Diagnoses Not on filedocumented in this encounter Care Teams Pie Bakery Laborer Relationship Specialty Start Date End Date Galva [facility] [address] [place] [address] PCP - General Family Medicine 06/04/21 documented as of this encounter
--- OUTSIDE RECORDS SUMMARY | 2025-01-12 12:19 | XMS_ITS | Encounter Summary ---
Author Organization [employer] Address [address] [facility] 7t [place] [address] Care Team Providers Care Investment Banking Manager Name Role Phone [facility] Primary Care Provider [phone] Encounter Details Date Type Department Care Team (Late st Contact Info) Description 07/22/[address] [facility] MEDICINE [address] [place] [address] [place] [facility] [address] [place] [address] Social History Tobacco Use Types Packs/Day Years [...] Description 02/12/2025 8:00 AM EDT Office Visit [facility] ADULT DENTAL [address] [place] [address] Ruby, Meg [address] [place] [address] documented as of this encounter Goals Goal Patient Goal Type Associated Problems Recent Progress Patient-Stated? Author Blood Pressure < 140/90 Blood Pressure 140/85( 025 11:07 AM EDT) No Patricia Parikh, PharmD documented as of this encounter Procedures Procedure Name Priority Date/Time Associated Diagnosis Comments COLONOSCOPY Routine 07/15/2022 documented in this encounter Results * Colonoscopy (07/15/2022) Colonoscopy Normal Normal Narrative Margaret Aldana - 07/15/2022 Recommended repeat in 5 years due to family history Historical Provider HEALTH MAINTENANCE Final Result documented in this encounter Visit Diagnoses Not on filedocumented in this encounter Additional Health Concerns Assessment Noted Time PHQ-9 Depression Total Score: 0 03/19/20 23 3:47 PM EDT documented as of this encounter Care Teams Investment Banking Manager Relationship Specialty Start Date End Date Yolanda Card FNP [address] [place] [address] PCP - General Family Medicine 06/04/21 documented as of this encounter
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
--- OUTSIDE RECORDS SUMMARY | 2025-01-12 12:19 | XMS_ITS | Encounter Summary ---
Author Organization [employer] Address [address] [facility] 7t [place] [address] Care Team Providers Care Grain Elevator Agent Name Role Phone [facility] Primary Care Provider [phone] Reason for Visit * Reason Comments Med Refill Encounter Details Date Type Department Care Team ([facility] st Contact Info) Description 01/12/2025 Refill [facility] MEDICINE [address] [place] [address] [facility] [address] [place] [address] Type 2 diabetes mellitus with hyperglycemia, without long-term current use of insulin ([facility]) Social History Tobacco Use Types Packs/Day Years [...] 8:00 AM EDT Office Visit [facility] ADULT DENTAL [address] [place] [address] Ruby, Meg [address] [place] [address] documented as of this encounter Goals Goal Patient Goal Type Associated Problems Recent Progress Patient-Stated? Author Blood Pressure < 140/90 Blood Pressure 140/85( 025 11:07 AM EDT) No Patricia Parikh, FeliceD documented as of this encounter Visit Diagnoses Diagnosis Type 2 diabetes mellitus with hyperglycemia, without long-term current use of insulin ([facility]) documented in this encounter Additional Health Concerns Assessment Noted Time PHQ-9 Depression Total Score: 0 07/12/20 24 10:28 AM EST documented as of this encounter Care Teams Grain Elevator Agent Relationship Specialty Start Date End Date Yloanda Card FNP [address] [place] [address] PCP - General Family Medicine 06/04/21 documented as of this encounter
--- OUTSIDE RECORDS SUMMARY | 2025-01-12 12:19 | XMS_ITS | Encounter Summary ---
Author Organization [employer] Address [address] [facility] [address] [place] [address] Care Team Providers Care Novelty Maker Name Role Phone [facility] Primary Care Provider [phone] Encounter Details Date Type Department Care Team (Late st Contact Info) Description 08/19/2022 Orders Only [facility] [address] [place] [address] [facility] [address] [place] [address] Social History Tobacco Use Types Packs/Day Years [...] was confirmed or suspected to have Coronavirus/COVID-19? Unable to assess 08/19/2022 9:10 AM EST documented as of this encounter Plan of Treatment Upcoming Encounters Date Type Department Care Team (Late st Contact Info) Description 02/12/2025 8:00 AM EDT Office Visit [facility] ADULT DENTAL [address] [place] [address] Ruby Meg [address] [place] [address] documented as of this encounter Procedures Procedure Name Priority Date/Time Associated Diagnosis Comments HIGH SENSITIVITY TROPONIN I Routine 10/07/2022 8:13 PM EST CBC WITH AUTO DIFFERENTIAL Routine 10/07/2022 8:13 PM EST MAGNESIUM Routine 10/07/2022 8:13 PM EST BASIC METABOLIC PANEL Routine 10/07/2022 8:13 PM EST GLUCOSE, WHOLE BLOOD Routine 10/07/2022 8:01 PM EST documented in this encounter Results * HIGH SENSITIVITY TROPONIN I (10/07/2022 8:13 PM EST) Pathologist [facility] [place] TROPONIN I HIGH SENSITIVITY <3.5 <3.5 - 35.0 ng/L LABS Comment:The [place] high sens itivity Troponin-I results should beused in conjunction with other diagnostic information suchas ECG, clinical observations and information, and patientsymptoms to aid in the diagnosis of UT. 10/07/2022 8:13 PM EST 10/07/2022 8:17 PM EST [facility] External Provider LAB BLO OD ORDERABLES Final Result Performing Organization Address [facility]/ZIP Co de Phone Number LABS [address] [place] [phone] * Magnesium (10/07/2022 8:13 PM EST) [facility] Magnesium 2.2 1.6 - 2.6 mg/dL LABS 10/07/2022 8:13 PM EST 10/07/2022 8:17 PM EST [facility] External Provider LAB BLO OD ORDERABLES Final Result Performing Organization Address City/[facility]/ZIP Co de Phone Number LABS [address] [place] [phone] * (ABNORMAL) Basic Metabolic Panel (10/07/2022 8:13 PM EST) Pathologist [facility] Sodium 141 135 - 145 mmol/L LABS Potassium 4.4 3.3 - 5.1 mmol/L LABS Chloride 106 96 - 108 mmol/L LABS Carbon Dioxide 27 22 - 29 mmol/L LABS Anion Gap 12 12 - 20 LABS Urea Nitrogen (BUN) 11 9 - 16 mg/dL LABS Creatinine, Serum 1.02 0.5 - 1.4 mg/dL LABS Creatinine Clr Calc Pharmacy 96.3 LABS Comment:eGFR (calculated fro m the MDRD study equation) and eCrCl(calculated from the Cockcroft-Gault equation) are based ondifferent parameters and may not yield comparable results.If eCrCl result is absurd, please check patient'sheight/weight. Estimated Glomerular Filt Rate >60 LABS Comment:NOTE: For -Am erican individuals, multiply the result by 1.210.Chronic Kidney Disease: Estimated GFR < 60 mL/min/[id number] Kidney Disease: Estimated GFR < 15 mL/min/1.73m2 Glucose 201(H) 60 - 115 mg/dL LABS Calcium 9.9 8.4 - 10.2 mg/dL LABS 10/07/2022 8:13 PM EST 10/07/2022 8:17 PM EST us [facility] External Provider LAB BLO OD ORDERABLES Final Result LABS [address] [place] [phone] * CBC auto differential (10/07/2022 8:13 PM EST) White Blood Count 6.9 4.8 - 10.8 X10*3/uL LABS Red Blood Count 5.31 4.60 - 5.80 X10*6/uL LABS Hemoglobin 14.4 14.0 - 18.0 g/dl LABS Hematocrit 45.0 42.0 - 52.0 % LABS Mean Corpuscular Volume 84.7 80.0 - 98.0 fL LABS Mean Corpuscular Hemoglobin 27.1 27.0 - 33.0 pg LABS Mean Corpuscular HGB Conc 32.0 31.0 - 36.0 g/dl LABS Red Cell Distribution Width 13.0 11.0 - 16.0 % LABS Platelet Count 216 160 - 400 X10*3/uL LABS Mean Platelet Volume 11.7 9.4 - 12.4 fL LABS Neutrophils Percent Auto 57.6 45 - 73 % LABS Imm Gran Pct Auto 0.1 0.0 - 0.4 % LABS Lymphocytes Percent Auto 29.0 20 - 40 % LABS Monocytes Percent Auto 11.0 2 - 11 % LABS Eosinophils Percent Auto 1.7 0 - 4 % LABS Basophils Percent Auto 0.6 0 - 2 % LABS NRBC Pct Auto 0.0 0.0 - 0.2 /100WBC LABS Neutrophils Absolute Auto 4.0 2.0 - 8.3 x10*3/uL LABS Imm Gran Abs Auto 0.01 0.00 - 0.03 X10*3/uL LABS Lymphocytes Absolute Auto 2.0 1.2 - 4.9 X10*3/uL LABS Monocytes Absolute Auto 0.8 0.1 - 1.2 X10*3/uL LABS Eosinophils Absolute Auto 0.1 0.0 - 0.4 X10*3/uL LABS Basophils Absolute Auto 0.0 0.0 - 0.2 X10*3/uL LABS NRBC Abs Auto 0.000 0.0 - 0.012 X10*3/uL LABS 10/07/2022 8:13 PM EST 10/07/2022 8:17 PM EST us [facility] External Provider LAB BLO OD ORDERABLES Final Result LABS [address] [place] [phone] * (ABNORMAL) GLUCOSE, WHOLE BLOOD (10/07/2022 8:01 PM EST) Glucose, Whole Blood 212(H) 60 - 115 mg/dL LABS Comment:METER #: [id number] 10/07/2022 8:01 PM EST 10/07/2022 8:23 PM EST [facility] External Provider LAB BLO OD ORDERABLES Final Result Performing Organization Address [facility] Co de Phone Number LABS [address] [place] [phone] documented in this encounter Visit Diagnoses Not on filedocumented in this encounter Care Teams Novelty Maker Relationship Specialty Start Date End Date Yolanda Card FNP [address] [place] [phone] PCP - General Family Medicine 06/04/21 documented as of this encounter
--- OUTSIDE RECORDS SUMMARY | 2025-01-12 12:19 | XMS_ITS | Encounter Summary ---
Author Organization [employer] Address [address] [facility] 7[address] [place] [address] Care Team Providers Care Safe Deposit Attendant Name Role Phone Stephie [facility] Primary Care Provider [phone] Encounter Details Date Type Department Care Team (Latest Contact Info) Description 02/26/2022 Abstract [facility] CONVERSIONS Dental, Provider, DDS Social History [...] Description 02/12/2025 8:00 AM EDT Office Visit [facility] ADULT DENTAL [address] [place] [address] Meg Beltran [address] [place] [address] documented as of this encounter Visit Diagnoses Not on filedocumented in this encounter Care Teams Safe Deposit Attendant Relationship Specialty Start Date End Date [facility] [address] [place] [address] PCP - General Family Medicine 06/04/21 documented as of this encounter
== END 2025-01-12 11:47 | disposition home or self-care (01) ==
LOC: HO.HHCX 11:46
PROVIDERS: Visit Provider Internal Medicine
DX: S33.8XXA Sprain of other parts of lumbar spine and pelvis, initial encounter (principal)
CPT/HCPCS: 73502

== ENCOUNTER → 2025-01-12 11:49 | Outpatient (BNV) | payer OTHER, SELFPAY | PROVIDERS: Visit Provider Radiology Diagnostic Radiology | DX: S76.811A Strain of other specified muscles, fascia and tendons at thigh level, right thigh, initial encounter (principal) | CPT/HCPCS: 73502 ==

== ENCOUNTER 2025-01-14 07:21 | Emergency (ER) | payer MEDICAID, SELFPAY ==
--- NOTE | ~2025-01-14 | CT_ITS ---
CLINICAL HISTORY: rlq pain CT abdomen and pelvis with contrast Comparison: CT/REG/ND/SR - CT ABDOMEN PELVIS W IV CON - 01/13/24 00:05 EDT Findings: No consolidation or effusion. The liver, gallbladder, spleen, adrenal glands and pancreas are normal. The kidneys, ureters and bladder are within normal limits. The prostate gland is unremarkable. Extensive diverticulosis noted along the colon. No definite focal stranding to suggest diverticulitis. The appendix is normal. No bowel obstruction, free air, free fluid, abscess or adenopathy. No acute osseous finding. Skin thickening with subcutaneous edema over the lower midline abdomen and pelvis. Impression: Extensive diverticulosis. No evidence of diverticulitis. No CT evidence for the right lower quadrant pain Skin thickening with subcutaneous edema over the lower midline abdomen and pelvis. Correlation for cellulitis. This document has been electronically signed by: Cr Maxwell MD on 01/14/2025 11:56:58
[2025-01-14 07:23] VITALS: BP 149/88; PULSE 70; RESP 19; TEMP 36.6; O2SAT 98; BMI 37.6
--- NOTE | 2025-01-14 08:14 | ED_ITS ---
HPI - Abdominal Pain General Chief Complaint: Abdominal Pain Stated Complaint: Lower r side abd pain Time Seen by Provider: 01/14/25 07:50 History of Present Illness HPI narrative: patient is 59 years old presents today with having abdominal pain mainly over the right lower quadrant. Been ongoing for about 2 days. Some mild diarrhea. There is no nausea no vomiting no change in appetite. Patient is from home. Related Data Home Medications ?Medication ?Instructions ?Recorded ?Confirmed amlodipine 10 mg tablet 10 mg PO QAM 01/29/22 02/23/22 aripiprazole 30 mg tablet 30 mg PO BEDTIME 01/29/22 02/23/22 mirtazapine 45 mg tablet 1 tab PO BEDTIME 02/23/22 02/23/22 olopatadine 0.2 % eye drops 1 drp ophthalmic (eye) DAILY 02/23/22 02/23/22 prazosin 5 mg capsule 4 cap PO BEDTIME 02/23/22 02/23/22 alcohol swabs (Alcohol Prep Pads) 0 pad topical DAILY 07/29/22 aspirin 81 mg tablet,delayed 81 mg PO QPM 07/29/22 release blood sugar diagnostic (FreeStyle #10 ea 07/29/22 Lite Strips) lancets 33 gauge (TRUEplus Lancets) #100 ea 07/29/22 rosuvastatin 40 mg tablet 40 mg PO BEDTIME 07/29/22 desvenlafaxine succinate 100 mg 100 mg PO QAM 01/27/23 tablet,extended release 24 hr (Pristiq) empagliflozin 25 mg tablet 25 mg PO QAM 07/28/23 (Jardiance) buspirone 10 mg tablet 10 mg PO TID 01/26/24 chlorthalidone 25 mg tablet 12.5 mg PO QAM 03/31/24 dulaglutide 0.75 mg/0.5 mL mg subcut QWEEK 03/31/24 subcutaneous pen injector (Trulicity) lisinopril 40 mg tablet 40 mg PO QAM 03/31/24 Previous Rx's ?Medication ?Instructions ?Recorded cyclobenzaprine 10 mg tablet 10 mg PO TID PRN muscle spasm #14 05/26/23 tabs lidocaine 5 % topical patch 1 patch topical DAILY #15 ea 05/26/23 naproxen 500 mg tablet 500 mg PO BID PRN pain #20 tabs 05/26/23 codeine 10 mg-guaifenesin 100 mg/5 10 ml PO Q6H PRN cough #237 mL 08/29/23 mL oral liquid ibuprofen 600 mg tablet 600 mg PO Q6H PRN fever or pain 08/29/23 #30 tabs calcium polycarbophil 625 mg 1,250 mg (2 x 625 mg) PO QAM #60 08/21/24 tablet (Fiber-Lax) tabs methylcellulose (laxative) 500 mg 1,000 mg (2 x 500 mg) PO DAILY #60 09/12/24 tablet (Citrucel) tabs omeprazole 20 mg capsule,delayed 20 mg PO QAM #30 caps 09/12/24 release sennosides 8.6 mg tablet (senna) 25.8 mg (3 x 8.6 mg) PO BEDTIME 09/12/24 PRN for constipation #60 tabs naproxen 500 mg tablet 500 mg PO BID PRN pain #14 tabs 01/04/25 Allergies Allergy/AdvReac Type Severity Reaction Status Date / Time Penicillins [PENICILLINS] Allergy Intermediate RASH Verified 01/14/25 07:26 Review of Systems Review of Systems Positive abdominal pain Yes all other systems are reviewed and are negative [facility] Past Medical History Attestation statement: The following information was validated with the patient. Medical History HTN (hypertension) Intertrigo Anxiety Depression C. difficile colitis Diabetes Surgical History H/O colonoscopy Family History Family History Mother Cancer Father Cancer Maternal Uncle Cancer Social History Social History Alcohol intake: former Patient Tobacco Use Status: Never used Tobacco Advance Directives: No Advance Directives Information Provided: No Do you have a plan to hurt others: No Plan Current occupational status: unemployed Current occupation: rt handed Physical Exam ED Vital Signs: Vital Signs - 24 hr 01/14/25 07:23 Temperature 98 F Pulse Rate 70 Respiratory Rate 19 Blood Pressure 149/88 H Pulse Oximetry 98 Oxygen Delivery Method Room Air BMI result Body Mass Index 37.6 Appearance: Alert. Oriented X3. No acute distress. Eyes: Pupils equal, round and reactive to light. ENT: Pharynx normal. Neck: Normal inspection. Neck supple. No lymph nodes noted. No crepitus CVS: Normal heart rate and rhythm. Pulses normal. Normal S1 and S2 Respiratory: No respiratory distress. Breath sounds normal. No Wheezing. No rales Abdomen: Soft and nontender. No rigidity. No distention. good BS x4 Skin: Skin warm and dry. Normal skin color. Normal skin turgor. Extremities: No lower extremity edema. Neurovascular intact to all extremities. No Lacerations. No Rash Neuro: Oriented X 3. No motor deficit. No sensory deficit. Moving all extermities. No slurred speech Medical Decision Making Medical Decision Making MDM Narrative: patient is a 59-year-old male presents today with having right lower quadrant abdominal pain some diarrhea. Patient is white count was 6. Electrolytes were unremarkable. LFTs are normal no evidence for biliary disease. Urine showed no signs of infection. CT scan abdomen pelvis showed no evidence of appendicitis no evidence for diverticulitis. There is evidence for diverticulosis. Patient has no gross cellulitis on exam. Well-appearing. Will discharge patient home. Differential Diagnosis Differential Diagnoses: The differential diagnosis associated with the presentation includes Abdominal pain Admission/Observation Consideration of admission/observation: Escalation of care including admission/observation considered Lab Data [facility] Lab Attestation statement: I reviewed the patient's lab results. 01/14/25 09:00 01/14/25 09:53 Labs: Lab Results 01/14/25 01/14/25 01/14/25 Range/Units 09:00 09:52 09:53 WBC 6.3 (4.8-10.8) X10*3/uL RBC 5.01 (4.60-5.80) X10*6/uL Hgb 13.8 L (14.0-18.0) g/dl Hct 43.1 (42.0-52.0) % MCV 86.0 (80.0-98.0) fL MCH 27.5 (27.0-33.0) pg MCHC 32.0 (31.0-36.0) g/dl RDW 13.1 (11.0-16.0) % Plt Count 215 (160-400) X10*3/uL MPV 12.2 (9.4-12.4) fL Immature Gran % (Auto) 0.2 (0.0-0.4) % Neut % (Auto) 62.0 (45-73) % Lymph % (Auto) 25.1 (20-40) % [place] % (Auto) 9.5 (2-11) % Eos % (Auto) 2.7 (0-4) % Baso % (Auto) 0.5 (0-2) % Lymph # (Auto) 1.6 (1.2-4.9) X10*3/uL [place] # (Auto) 0.6 (0.1-1.2) X10*3/uL Eos # (Auto) 0.2 (0.0-0.4) X10*3/uL Baso # (Auto) 0.0 (0.0-0.2) X10*3/uL Abs Immat Gran (auto) 0.01 (0.00-0.03) X10*3/uL Absolute Neuts (auto) 3.9 (2.0-8.3) x10*3/uL Absolute Nucleated RBC 0.000 (0.0-0.012) X10*3/uL Nucleated RBC % (auto) 0.0 (0.0-0.2) /100WBC Hold Purple Top SEE NOTE Sodium 144 (135-145) mmol/L Potassium 3.7 (3.3-5.1) mmol/L Chloride 110 H (96-108) mmol/L Carbon Dioxide 25 (22-29) mmol/L Anion Gap 13 (12-20) BUN 10 (9-16) mg/dL Creatinine 0.81 (0.5-1.4) mg/dL Estim Creat Clear Calc 118.4 Estimated GFR > 60 Random Glucose 105 (60-115) mg/dL Calcium 8.7 D (8.4-10.2) mg/dL Total Bilirubin 0.5 (0.0-1.0) mg/dL Direct Bilirubin 0.2 (0.0-0.5) mg/dL AST 20 (5-37) U/L ALT 18 (0-40) U/L Alkaline Phosphatase 86 (39-117) U/L Total Protein 6.7 (6.5-8.0) g/dL Albumin 3.9 (3.5-5.0) g/dL Lipase 26 (8-78) U/L Urine Color Urine Appearance Urine pH (5.0-9.0) Ur Specific [place] (1.005-1.025) Urine Protein (Neg-Trace) mg/dL Urine Glucose (UA) (Negative) mg/dL Urine Ketones (Negative) mg/dL Urine Blood (Negative) Urine Nitrite (Negative) Ur Leukocyte Esterase (Negative) Urine RBC (0-2) /HPF Urine WBC (0-5) /HPF Ur Squamous Epith Cells (0-2) /HPF Urine Bacteria (None Seen) Hyaline Casts (0-2) /LPF 01/14/25 Range/Units 11:24 WBC (4.8-10.8) X10*3/uL RBC (4.60-5.80) X10*6/uL Hgb (14.0-18.0) g/dl Hct (42.0-52.0) % MCV (80.0-98.0) fL MCH (27.0-33.0) pg MCHC (31.0-36.0) g/dl RDW (11.0-16.0) % Plt Count (160-400) X10*3/uL MPV (9.4-12.4) fL Immature Gran % (Auto) (0.0-0.4) % Neut % (Auto) (45-73) % Lymph % (Auto) (20-40) % [place] % (Auto) (2-11) % Eos % (Auto) (0-4) % Baso % (Auto) (0-2) % Lymph # (Auto) (1.2-4.9) X10*3/uL [place] # (Auto) (0.1-1.2) X10*3/uL Eos # (Auto) (0.0-0.4) X10*3/uL Baso # (Auto) (0.0-0.2) X10*3/uL Abs Immat Gran (auto) (0.00-0.03) X10*3/uL Absolute Neuts (auto) (2.0-8.3) x10*3/uL Absolute Nucleated RBC (0.0-0.012) X10*3/uL Nucleated RBC % (auto) (0.0-0.2) /100WBC Hold Purple Top Sodium (135-145) mmol/L Potassium (3.3-5.1) mmol/L Chloride (96-108) mmol/L Carbon Dioxide (22-29) mmol/L Anion Gap (12-20) BUN (9-16) mg/dL Creatinine (0.5-1.4) mg/dL Estim Creat Clear Calc Estimated GFR Random Glucose (60-115) mg/dL Calcium (8.4-10.2) mg/dL Total Bilirubin (0.0-1.0) mg/dL Direct Bilirubin (0.0-0.5) mg/dL AST (5-37) U/L ALT (0-40) U/L Alkaline Phosphatase (39-117) U/L Total Protein (6.5-8.0) g/dL Albumin (3.5-5.0) g/dL Lipase (8-78) U/L Urine Color Yellow Urine Appearance Clear Urine pH 5.5 (5.0-9.0) Ur Specific [place] 1.015 (1.005-1.025) Urine Protein Negative (Neg-Trace) mg/dL Urine Glucose (UA) Negative (Negative) mg/dL Urine Ketones Negative (Negative) mg/dL Urine Blood Negative (Negative) Urine Nitrite Negative (Negative) Ur Leukocyte Esterase Negative (Negative) Urine RBC 0-2 (0-2) /HPF Urine WBC 0-5 (0-5) /HPF Ur Squamous Epith Cells 0-2 (0-2) /HPF Urine Bacteria None Seen (None Seen) Hyaline Casts 0-2 (0-2) /LPF Independent Interpretation I performed an independent interpretation of an: CT Scan ( no acute obstruction) Radiology Impression Discussion of test interpretation with radiology: I have reviewed the radiologist's reading. External Record Review External record reviewed: Inpatient record Chronic Conditions Patient?s care impacted by: Diabetes Social Determinants Patient?s care significantly limited by Social Determinants of Health including: Problems related to primary support group Medications Administered Discontinued Medications Generic Name Dose Route Start Last Admin Trade Name Freq PRN Reason Stop Dose Admin Hydromorphone HCl 0.5 mg 01/14/25 08:13 01/14/25 09:05 Hydromorphone Hcl 0.5 Mg/0.5 Ml Syringe IVPUSH 01/14/25 08:14 0.5 mg ONCE ONE Administration Protocol Sodium Chloride 1,000 mls @ 999 mls/hr 01/14/25 08:15 01/14/25 11:06 Ns IV 01/14/25 09:15 Infused .Q1H1M RICCI Infusion Iohexol 100 ml 01/14/25 11:20 01/14/25 11:21 Iohexol 350 Mg/Ml 100 Ml Infus..Btl IV 01/14/25 11:21 85 ml ONCE ONE Administration Ondansetron HCl 4 mg 01/14/25 08:13 01/14/25 09:05 Ondansetron Hcl 4 Mg/2 Ml Vial IVPUSH 01/14/25 08:14 4 mg ONCE ONE Administration Discharge Plan Discharge Clinical Impression: Diarrhea Patient Disposition: Home, Self-Care Instructions: Acute Diarrhea (ED) Prescriptions: No Action Fiber-Lax 625 mg tablet 1,250 mg PO QAM Qty: 60 6RF prazosin 5 mg capsule 4 cap PO BEDTIME mirtazapine 45 mg tablet 1 tab PO BEDTIME olopatadine 0.2 % drops 1 drp ophthalmic (eye) DAILY cyclobenzaprine 10 mg tablet 10 mg PO TID PRN (Reason: muscle spasm) Qty: 14 0RF lidocaine 5 % adhesive patch,medicated 1 patch topical DAILY Qty: 15 0RF Rx Instructions: leave on most painful area for up to 12 hrs naproxen 500 mg tablet 500 mg PO BID PRN (Reason: pain) Qty: 20 0RF codeine-guaifenesin 10-100 mg/5 mL liquid 10 ml PO Q6H PRN (Reason: cough) Qty: 237 0RF ibuprofen 600 mg tablet 600 mg PO Q6H PRN (Reason: fever or pain) Qty: 30 0RF naproxen 500 mg tablet 500 mg PO BID PRN (Reason: pain) Qty: 14 0RF desvenlafaxine succinate [Pristiq] 100 mg tablet extended release 24 hr 100 mg PO QAM aripiprazole 30 mg tablet 30 mg PO BEDTIME amlodipine 10 mg tablet 10 mg PO QAM (DME) lancets [TRUEplus Lancets] 33 gauge misc See Rx Instructions .ROUTE TID Qty: 100 Rx Instructions: As directed rosuvastatin 40 mg tablet 40 mg PO BEDTIME aspirin 81 mg tablet,delayed release (DR/EC) 81 mg PO QPM alcohol swabs [Alcohol Prep Pads] Pads, Medicated 0 pad topical DAILY (DME) FreeStyle Lite Strips Strip See Rx Instructions .ROUTE TID Qty: 10 Rx Instructions: As directed Jardiance 25 mg tablet 25 mg PO QAM buspirone 10 mg tablet 10 mg PO TID Trulicity 0.75 mg/0.5 mL pen injector subcut QWEEK lisinopril 40 mg tablet 40 mg PO QAM chlorthalidone 25 mg tablet 12.5 mg PO QAM Citrucel 500 mg tablet 1,000 mg PO DAILY Qty: 60 6RF omeprazole 20 mg capsule,delayed release(DR/EC) 20 mg PO QAM Qty: 30 6RF sennosides [senna] 8.6 mg tablet 25.8 mg PO BEDTIME PRN (Reason: for constipation) Qty: 60 6RF Referrals: Physician,Unknown J [Primary Care Provider] - 01/16/25 Print Language: Slovenian
[2025-01-14] MEDS: ondansetron HCL 4 MG/2 ML VIAL IVPUSH (09:05)
[2025-01-14] MEDS: 0.9 % Sodium Chloride 1,000 ML 999 ML IV (09:05)
[2025-01-14] MEDS: HYDROmorphone HCl 0.5 MG/0.5 ML SYRINGE IVPUSH (09:05)
[2025-01-14 09:14] LABS: MANUAL DIFF FLAG NO
[2025-01-14 09:16] LABS: Basophils Percent Auto 0.5 % (0-2); Eosinophils Absolute Auto 0.2 X10*3/uL (0.0-0.4); Eosinophils Percent Auto 2.7 % (0-4); Hematocrit 43.1 % (42.0-52.0); Hemoglobin 13.8 g/dl (14.0-18.0); Imm Gran Abs Auto 0.01 X10*3/uL (0.00-0.03); Imm Gran Pct Auto 0.2 % (0.0-0.4); Lymphocytes Absolute Auto 1.6 X10*3/uL (1.2-4.9); Lymphocytes Percent Auto 25.1 % (20-40); Mean Corpuscular Hemoglobin 27.5 pg (27.0-33.0); Mean Platelet Volume 12.2 fL (9.4-12.4); Monocytes Absolute Auto 0.6 X10*3/uL (0.1-1.2); Monocytes Percent Auto 9.5 % (2-11); Neutrophils Absolute Auto 3.9 x10*3/uL (2.0-8.3); Platelet Count 215 X10*3/uL (160-400); Red Blood Count 5.01 X10*6/uL (4.60-5.80); Red Cell Distribution Width 13.1 % (11.0-16.0); White Blood Count 6.3 X10*3/uL (4.8-10.8)
[2025-01-14 11:08] LABS: Alanine Aminotransferase 18 U/L (0-40); Albumin Level 3.9 g/dL (3.5-5.0); Alkaline Phosphatase 86 U/L (39-117); Anion Gap 13 (12-20); Aspartate Amino Transferase 20 U/L (5-37); Bilirubin Direct 0.2 mg/dL (0.0-0.5); Bilirubin Total 0.5 mg/dL (0.0-1.0); Blood Urea Nitrogen 10 mg/dL (9-16); Calcium 8.7 mg/dL (8.4-10.2); Carbon Dioxide 25 mmol/L (22-29); Chloride 110 mmol/L (96-108); Creatinine Clr Calc Pharmacy 118.4; Estimated Glomerular Filt Rate > 60; Glucose Random 105 mg/dL (60-115); Lipase 26 U/L (8-78); Potassium 3.7 mmol/L (3.3-5.1); Sodium 144 mmol/L (135-145); Total Protein 6.7 g/dL (6.5-8.0)
[2025-01-14] MEDS: iohexoL 350 MG/ML 100 ML INFUS..BTL IV (11:21)
[2025-01-14 11:54] LABS: Appearance Urine Clear; Color Urine Yellow; Glucose Urine UA Negative (Negative); Leukocyte Esterase Urine Negative (Negative); Nitrite Urine Negative (Negative); PH 5.5 (5.0-9.0); Specific Gravity - Urine 1.015 (1.005-1.025); Urine Blood Negative (Negative); Urine Ketones Negative (Negative); Urine Protein Negative (Neg-Trace)
[2025-01-14 11:59] LABS: Bacteria Urine None Seen (None Seen); Hyaline Casts Urine 0-2 /LPF (0-2); RBC Urine 0-2 /HPF (0-2); Squamous Epithelial Cell Urine 0-2 /HPF (0-2); WBC Urine 0-5 /HPF (0-5)
[2025-01-14 12:45] VITALS: BP 143/85; PULSE 53; RESP 20; TEMP 36.5; O2SAT 99
[2025-01-14 12:55] VITALS: BP 150/90; PULSE 59; RESP 16; TEMP 36.8; O2SAT 96
== END 2025-01-14 13:00 | disposition home or self-care (01) ==
PROVIDERS: Emergency Provider Emergency Medicine Emergency Medical Services
DX: R10.31 Right lower quadrant pain (principal); R19.7 Diarrhea, unspecified; R10.2 Pelvic and perineal pain; R11.0 Nausea; Z79.899 Other long term (current) drug therapy
CPT/HCPCS: 36415; 74177; 80048; 80076; 81001; 83690; 85025; 96361; 96374; 96375; 99283; 99284; J1171; J2405; Q9967

== ENCOUNTER → 2025-01-14 08:13 | Outpatient (BNV) | payer MEDICAID, SELFPAY | PROVIDERS: Emergency Provider Emergency Medicine Emergency Medical Services; Visit Provider Radiology Vascular & Interventional Radiology | DX: K57.90 Diverticulosis of intestine, part unspecified, without perforation or abscess without bleeding (principal) | CPT/HCPCS: 74177 ==

== ENCOUNTER 2025-01-27 07:50 | Emergency (ER) | payer MEDICAID, SELFPAY ==
--- NOTE | ~2025-01-27 | XR_ITS ---
CLINICAL HISTORY: pain, injury 3 views lumbar spine Comparison: CT/SR - CT ABDOMEN PELVIS W IV CON - 01/14/25 11:13 EDT CR/SR - XR LUMBAR SPINE 2-3V - 05/26/23 14:44 EDT Findings: The usual lumbar lordosis is maintained. Similar mild grade 1 degenerative anterolisthesis of L5 on S1. Vertebral body heights are maintained. Multilevel lower thoracic and to a lesser extent lumbar discogenic degenerative disease. Multilevel lower lumbar predominant facet osteoarthritis. IMPRESSION: No acute findings. This document has been electronically signed by: Tanvir Cabrera DO on 01/27/2025 10:55:40
--- NOTE | ~2025-01-27 | XR_ITS ---
CLINICAL HISTORY: pain, injury 3 view, pelvis and right hip Comparison: CT/SR - CT ABDOMEN PELVIS W IV CON - 01/14/25 11:13 EDT CR/IA/SR - XR HIP RT MIN 2V - 01/12/25 12:08 EDT Findings: No acute fracture or dislocation. Lumbosacral degenerative changes. Minimal bilateral hip osteoarthritis. The soft tissues are unremarkable. IMPRESSION: No acute findings. This document has been electronically signed by: Tanvir Cabrera DO on 01/27/2025 10:59:09
[2025-01-27 07:56] VITALS: BP 146/100; PULSE 91; RESP 18; TEMP 36.5; O2SAT 97; BMI 37.4
--- NOTE | 2025-01-27 07:58 | PC.NURSE ---
completed triage assessment with Ira from interpreting services
--- NOTE | 2025-01-27 09:15 | ED_ITS ---
HPI - General Adult General Chief complaint: Extremity Problem Stated complaint: r leg pain Time Seen by Provider: 01/27/25 09:13 Source: patient and interpreter translator (all interactions with this patient were facilitated with the [facility] certified court/medical interpreter. ) Mode of arrival: ambulatory Limitations: language barrier (all interactions with this patient were facilitated with the [facility] certified court/medical interpreter. ) History of Present Illness ED Provider: Almaz Velasquez PA-C HPI narrative: Patient is a 59 year old assigned male at with a history of DM, HTN, depression, GERD, left rotator cuff impingement syndrome, and tubular adenoma of colon presenting to the emergency department today with right hip, right sided low back, and thigh pain. Patient states that he has been having right sided hip and thigh pain that radiates down into his right knee. Patient states that he is also having right sided low back pain. Patient states that nothing makes it worse and nothing makes it better. Patient denies any dizziness, lightheadedness, abdominal pain, nausea, vomiting, fever, chills, blurry vision, double vision, loss of vision, chest pain, difficulty breathing, shortness of breath, night sweats, pain with urination, increased urinary frequency, increased urinary urgency, blood in his urine or stool, syncope or a near syncopal episode, recent trauma or falls, bowel incontinence, bladder incon tinence, or any other complaints at this time. Onset (ago): week(s) (2) Relieving factors: none Exacerbating factors: none Associated symptoms: denies other symptoms Treatments prior to arrival: none Related Data Home Medications ?Medication ?Instructions ?Recorded ?Confirmed amlodipine 10 mg tablet 10 mg PO QAM 01/29/22 02/23/22 aripiprazole 30 mg tablet 30 mg PO BEDTIME 01/29/22 02/23/22 mirtazapine 45 mg tablet 1 tab PO BEDTIME 02/23/22 02/23/22 olopatadine 0.2 % eye drops 1 drp ophthalmic (eye) DAILY 02/23/22 02/23/22 prazosin 5 mg capsule 4 cap PO BEDTIME 02/23/22 02/23/22 alcohol swabs (Alcohol Prep Pads) 0 pad topical DAILY 07/29/22 aspirin 81 mg tablet,delayed 81 mg PO QPM 07/29/22 release blood sugar diagnostic (FreeStyle #10 ea 07/29/22 Lite Strips) lancets 33 gauge (TRUEplus Lancets) #100 ea 07/29/22 rosuvastatin 40 mg tablet 40 mg PO BEDTIME 07/29/22 desvenlafaxine succinate 100 mg 100 mg PO QAM 01/27/23 tablet,extended release 24 hr (Pristiq) empagliflozin 25 mg tablet 25 mg PO QAM 07/28/23 (Jardiance) buspirone 10 mg tablet 10 mg PO TID 01/26/24 chlorthalidone 25 mg tablet 12.5 mg PO QAM 03/31/24 dulaglutide 0.75 mg/0.5 mL mg subcut QWEEK 03/31/24 subcutaneous pen injector (Trulicity) lisinopril 40 mg tablet 40 mg PO QAM 03/31/24 Previous Rx's ?Medication ?Instructions ?Recorded cyclobenzaprine 10 mg tablet 10 mg PO TID PRN muscle spasm #14 05/26/23 tabs lidocaine 5 % topical patch 1 patch topical DAILY #15 ea 05/26/23 naproxen 500 mg tablet 500 mg PO BID PRN pain #20 tabs 05/26/23 codeine 10 mg-guaifenesin 100 mg/5 10 ml PO Q6H PRN cough #237 mL 08/29/23 mL oral liquid ibuprofen 600 mg tablet 600 mg PO Q6H PRN fever or pain 08/29/23 #30 tabs calcium polycarbophil 625 mg 1,250 mg (2 x 625 mg) PO QAM #60 08/21/24 tablet (Fiber-Lax) tabs methylcellulose (laxative) 500 mg 1,000 mg (2 x 500 mg) PO DAILY #60 09/12/24 tablet (Citrucel) tabs omeprazole 20 mg capsule,delayed 20 mg PO QAM #30 caps 09/12/24 release sennosides 8.6 mg tablet (senna) 25.8 mg (3 x 8.6 mg) PO BEDTIME 09/12/24 PRN for constipation #60 tabs naproxen 500 mg tablet 500 mg PO BID PRN pain #14 tabs 01/04/25 Allergies Allergy/AdvReac Type Severity Reaction Status Date / Time Penicillins [PENICILLINS] Allergy Intermediate RASH Verified 01/27/25 07:57 Review of Systems Constitutional: Constitutional: Reports no additional constitutional complaints, Denies chills, Denies fever(s) and Denies night sweats Eyes: Eyes: Reports no additional eye complaints, Denies blurry vision, Denies change in vision, Denies diplopia, Denies eye discharge, Denies loss of vision and Denies eye pain ENT: Denies dizziness Cardiovascular: Cardiovascular: Reports no additional cardiovascular complaints, Denies chest pain, Denies lightheadedness, Denies Loss of Consciousness and Denies dyspnea Respiratory: Respiratory: Reports no additional respiratory complaints and Denies dyspnea Gastrointestinal: Gastrointestinal: Reports no additional gastrointestinal complaints, Denies abdominal pain, Denies melena, Denies hematochezia, Denies change in bowel habits and Denies change in stool character Genitourinary: Genitourinary: Reports no additional male genitourinary complaints, Denies hematuria, Denies oliguria, Denies difficulty urinating, Den ies dysuria, Denies urinary frequency, Denies urinary hesitancy, Denies urinary incontinence and Denies urinary urgency Musculoskeletal: Musculoskeletal: Reports no additional musculoskeletal complaints, Reports back pain, Denies numbness and Denies tingling Comments: right hip pain and thigh pain Neurologic: Denies dizziness, Denies loss of vision, Denies numbness and Denies tingling Psychiatric: Psychiatric: Reports no additional psychiatric complaints Endocrine: Endocrine: Reports no additional endocrine complaints Hematologic/Lymphatic: Hematologic/Lymphatic: Reports no additional hematologic/lymphatic complaints Allergic/Immunologic: Allergic/Immunologic: Reports no additional allergic/immunologic complaints [facility] Past Medical History Attestation statement: The following information was validated with the patient. Source: old records reviewed and nursing notes reviewed Medical History (Updated 01/27/25 @ 11:08 by ELHAM Holland) HTN (hypertension) Intertrigo Anxiety Depression C. difficile colitis Diabetes Surgical History H/O colonoscopy Family History Family History Mother Cancer Father Cancer Maternal Uncle Cancer Social History Social History Alcohol intake: former Patient Tobacco Use Status: Never used Tobacco Smoked in Last 30 Days: No Advance Directives: No Advance Directives Information Provided: No Do you have a plan to hurt others: No Plan Current occupational status: unemployed Current occupation: rt handed Physical Exam ED Vital Signs: Vital Signs - 24 hr 01/27/25 07:56 01/27/25 10:19 01/27/25 11:14 Temperature 97.7 F 97.5 F 97.5 F Pulse Rate 91 61 61 Respiratory Rate 18 18 18 Blood Pressure 146/100 H 146/86 H 146/86 H Pulse Oximetry 97 95 95 Oxygen Delivery Method Room Air Room Air Room Air BMI result Body Mass Index 37.4 Const General: cooperative, no acute distress, alert and awake Nutritional Appearance: well nourished Orientation/consciousness: patient oriented x3 HENMT Head: Yes normal to inspection and Yes atraumatic Ears: hearing grossly normal bilaterally and external ears normal General nose exam: Normal external nose present, no nasal discharge noted and no epistaxis Face and sinus: Yes normal facial exam, No abrasion and No laceration Mouth: Normal oral and palatal mucosa present, no drooling and no muffled voice Eyes General: appearance normal, both eyes and all related structures Periorbital: periorbital findings normal Eyelids: Yes eyelids normal Conjunctivae: conjunctivae normal Pupils: Equal, round and reactive pupils present EOM: EOMs intact bilaterally Neck Neck: Yes normal visual inspection, Yes full ROM and Yes no lymphadenopathy Resp Effort & Inspection: normal respiratory effort and able to speak in complete sentences Neuro General: patient oriented x3, moves all extremities and CN's II-XI intact bilaterally Cranial nerves: Yes Equal, round and reactive pupils present Cognition (Neuro): normal cognition Extrem General: Yes normal to inspection, Yes full ROM and Yes capillary refill normal Psych Appearance: grossly normal Mental Status: mental status grossly normal Affect: normal affect Attitude: cooperative Thought process: Normal thought process present Thought content: Normal thought content present Insight: Good insight present (Psych) Medications Administered Discontinued Medications Generic Name Dose Route Start Last Admin Trade Name Freq PRN Reason Stop Dose Admin Ketorolac Tromethamine 15 mg 01/27/25 09:40 01/27/25 10:28 Ketorolac Tromethamine 15 Mg/Ml Vial IM 01/27/25 09:41 15 mg ONCE ONE Administration Medical Decision Making Medical Decision Making MDM Narrative: Patient is a 59 year old assigned male at with a history of DM, HTN, depression, GERD, left rotator cuff impingement syndrome, and tubular adenoma of colon presenting to the emergency department today with right hip, right sided low back, and thigh pain. Patient's physical exam was unremarkable. Patient's right hip and lumbar x-rays showed no acute process but did show evidence of osteoarthritis. I explained my physical exam findings as well as all test results to the patient. I answered all questions asked by the patient. I stressed the importance of the patient taking his medication as directed (either prescribed or as the over the counter packaging recommends). I stressed the importance of the patient following up with his primary care provider. I stressed the importance of the patient returning to the emergency department immediately if his symptoms were to worsen or if he were to develop any dizziness, shortness of breath, difficulty breathing, chest pain, blurry vision, loss of vision, nausea, vomiting, abdominal pain, fever, chills, back pain, or any other complaints. Patient verbalized agreement and understanding with this treatment plan and discharge. Differential Diagnosis Differential Diagnoses: The differential diagnosis associated with the presen tation includes Hip pain Hip arthritis Low back pain Lumbar arthritis Admission/Observation Consideration of admission/observation: Escalation of care including admission/observation considered Patient would have been admitted to the hospital had his work up had any findings where hospital admission was appropriate and his clinical presentation warranted hospital admission. Independent Interpretation I performed an independent interpretation of an: Plain X-Ray Interpretation: My interpretation is in agreement with the radiologist's impression of these imaging studies. CLINICAL HISTORY: pain, injury 3 view, pelvis and right hip Comparison: CT/SR - CT ABDOMEN PELVIS W IV CON - 01/14/25 11:13 EDT CR/GA/SR - XR HIP RT MIN 2V - 01/12/25 12:08 EDT Findings: No acute fracture or dislocation. Lumbosacral degenerative changes. Minimal bilateral hip osteoarthritis. The soft tissues are unremarkable. IMPRESSION: No acute findings. This document has been electronically signed by: Tanvir Cabrera DO on 01/27/2025 10:59:09 Dictated By: Tanvir Cabrera MD Signed By: Electronically signed by Tanvir Cabrera MD 01/27/25 1100 CLINICAL HISTORY: pain, injury 3 views lumbar spine Comparison: CT/SR - CT ABDOMEN PELVIS W IV CON - 01/14/25 11:13 EDT CR/SR - XR LUMBAR SPINE 2-3V - 05/26/23 14:44 EDT Findings: The usual lumbar lordosis is maintained. Similar mild grade 1 degenerative anterolisthesis of L5 on S1. Vertebral body heights are maintained. Multilevel lower thoracic and to a lesser extent lumbar discogenic degenerative disease. Multilevel lower lumbar predominant facet osteoarthritis. IMPRESSION: No acute findings. This document has been electronically signed by: Tanvir Cabrear DO on 01/27/2025 10:55:40 Dictated By: Tanvir Cabrera MD Signed By: Electronically signed by Tanvir Cabrera MD 01/27/25 1056 Radiology Impression Discussion of test interpretation with radiology: I have reviewed the radiologist's reading. Chronic Conditions Patient?s care impacted by: Diabetes and Hypertension Discharge Plan Discharge Clinical Impression: Arthritis of lumbar spine Patient Disposition: Home, Self-Care Instructions: Osteoarthritis (DC) Additional Instructions: Your x-ray showed evidence of arthritis. Follow up with your primary care provider. Return to the emergency department immediately if your symptoms worsen or if you develop any dizziness, shortness of breath, difficulty breathing, chest pain, blurry vision, loss of vision, nausea, vomiting, abdominal pain, fever, chills, back pain, or any other complaints. Michael?seguimiento?con lara m?dico de atenci?n primaria. Acuda inmediatamente al servicio de urgencias si esperanza s?ntomas empeoran o si presenta falta de aliento, dificultad para respirar, dolor tor?cico, mareos, aturdimiento, dolor de espalda, dolor abdominal, fiebre, escalofr?os o cualquier otro s?ntoma. Please see the information below about our Patient Portal. If you are not yet enrolled in the [facility] Patient Portal, you will receive an enrollment email invitation following your visit to any [facility] care setting. You may also self-enroll in the Patient Portal by visiting our website: [email or web address] The following information is required to access the Patient Portal: - Your [facility] Medical Record Number - Your personal home email address (must match what is in your electronic medical record, Registration staff can assist with this) - Name - Date of Capabilities of the Patient Portal: - Message some providers - View upcoming appointments - Access your health summary, medical history, and visit history - View current conditions and allergies - View procedure and lab results - View your medications, including guidelines, side effects, and precautions - Complete pre-appointment questionnaires requested by your provider - Ready summary reports of your office visits and procedures To access the Patient Portal Mobile Linda, follow these directions: - Search Wish Days in the [employer] Store or [employer] - Download the Linda - Search for [facility] - Enter your login/password Portal del paciente Si usted no esta inscrito en el portal de pacientes de [facility] y [facility], recibira micah invitacion de inscripcion despues de lara visita al [facility] o al [facility] via correo electronico. Tambien puede inscribirse voluntariamente en el portal de pacientes visitando nuestra pagina web: [email or web address] La siguiente informacion sera requerida para acceder al portal: - Lara torsten de historia medica de [facility] - Lara direccion de correo electronico personal - Nombre - Fecha de nacimiento Capacidades: Las siguientes capacidades estan disponibles en el portal de pacientes: - Enviar mensajes a algunos doctores - Verificar proximas citas - Acceso a lara historial de js, registro medico e historial de visitas - Symone las condiciones actuales y alergias symone procedimientos y resultados del laboratorio - Symone esperanza medicamentos, incluyendo las pautas - Efectos secundarios y precauciones - Completar o llenar formularios / cuestionarios de - Citas solicitadas por lara doctor - Leer los resumenes de reportes medicos de esperanza visitas y procedimientos Terry acceder a la aplicacion movil: - [employer] en la [employer] Store o [employer] - Descargue la aplicacion - [facility] - Ingrese lara nombre de usuario / Contrasena Prescriptions: No Action Fiber-Lax 625 mg tablet 1,250 mg PO QAM Qty: 60 6RF prazosin 5 mg capsule 4 cap PO BEDTIME mirtazapine 45 mg tablet 1 tab PO BEDTIME olopatadine 0.2 % drops 1 drp ophthalmic (eye) DAILY cyclobenzaprine 10 mg tablet 10 mg PO TID PRN (Reason: muscle spasm) Qty: 14 0RF lidocaine 5 % adhesive patch,medicated 1 patch topical DAILY Qty: 15 0RF Rx Instructions: leave on most painful area for up to 12 hrs naproxen 500 mg tablet 500 mg PO BID PRN (Reason: pain) Qty: 20 0RF codeine-guaifenesin 10-100 mg/5 mL liquid 10 ml PO Q6H PRN (Reason: cough) Qty: 237 0RF ibuprofen 600 mg tablet 600 mg PO Q6H PRN (Reason: fever or pain) Qty: 30 0RF naproxen 500 mg tablet 500 mg PO BID PRN (Reason: pain) Qty: 14 0RF desvenlafaxine succinate [Pristiq] 100 mg tablet extended release 24 hr 100 mg PO QAM aripiprazole 30 mg tablet 30 mg PO BEDTIME amlodipine 10 mg tablet 10 mg PO QAM (DME) lancets [TRUEplus Lancets] 33 gauge misc See Rx Instructions .ROUTE TID Qty: 100 Rx Instructions: As directed rosuvastatin 40 mg tablet 40 mg PO BEDTIME aspirin 81 mg tablet,delayed release (DR/EC) 81 mg PO QPM alcohol swabs [Alcohol Prep Pads] Pads, Medicated 0 pad topical DAILY (DME) FreeStyle Lite Strips Strip See Rx Instructions .ROUTE TID Qty: 10 Rx Instructions: As directed Jardiance 25 mg tablet 25 mg PO QAM buspirone 10 mg tablet 10 mg PO TID Trulicity 0.75 mg/0.5 mL pen injector subcut QWEEK lisinopril 40 mg tablet 40 mg PO QAM chlorthalidone 25 mg tablet 12.5 mg PO QAM Citrucel 500 mg tablet 1,000 mg PO DAILY Qty: 60 6RF omeprazole 20 mg capsule,delayed release(DR/EC) 20 mg PO QAM Qty: 30 6RF sennosides [senna] 8.6 mg tablet 25.8 mg PO BEDTIME PRN (Reason: for constipation) Qty: 60 6RF Referrals: [facility] [Primary Care Provider] - Interventions: ED Discharge Assessment Last Done: 01/27/25 11:14 Print Language: Algerian
--- NOTE | 2025-01-27 10:10 | PC.NURSE ---
attempted to medicate pt for pain - pt in XR.
[2025-01-27 10:19] VITALS: BP 146/86; PULSE 61; RESP 18; TEMP 36.4; O2SAT 95
[2025-01-27] MEDS: Ketorolac Tromethamine 15 MG/ML VIAL IM (10:28)
[2025-01-27 11:14] VITALS: BP 146/86; PULSE 61; RESP 18; TEMP 36.4; O2SAT 95
== END 2025-01-27 11:25 | disposition home or self-care (01) ==
PROVIDERS: Emergency Provider Emergency Medicine
DX: M47.816 Spondylosis without myelopathy or radiculopathy, lumbar region (principal); M25.551 Pain in right hip
CPT/HCPCS: 72100; 73502; 96372; 99284; J1885

== ENCOUNTER → 2025-01-27 09:40 | Outpatient (BNV) | payer MEDICAID, SELFPAY | PROVIDERS: Visit Provider Radiology Diagnostic Radiology | DX: M25.551 Pain in right hip (principal); M54.50 Low back pain, unspecified | CPT/HCPCS: 72100; 73502 ==

== ENCOUNTER 2025-02-15 12:18 | Outpatient (AMB) | payer MEDICAID, SELFPAY ==
[2025-02-15 12:56] VITALS: BMI 37.4
--- NOTE | 2025-02-15 12:56 | MHC.OFFVIS ---
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 Patient was recently seen at [facility] due to right hip pain, xrays were obtained. Patient followed up with his PCP who referred patient to orthopedics. Today patient reports pain has been present for about 4 weeks. States his pain started at the lateral aspect of hip and is now radiating down his leg to his [place] area. He has sharp pain that increases with activity and at rest. He mentions mild numbness his leg. Finds no relief with OTC pain medication. No previous treatment. Denies injury. Manager Organizational Required: Yes Manager Organizational Services: Manager Organizational Present Manager Organizational Name: Chani ID#[id number] Allergies Penicillins [PENICILLINS] Allergy (Intermediate, Verified 02/15/25 13:04) RASH Medication List - Last Reconciled 02/15/25 by Angela Arredondo PA-C alcohol swabs (Alcohol Prep Pads) 0 pad topical DAILY amlodipine 10 mg PO QAM aripiprazole 30 mg PO BEDTIME aspirin 81 mg PO QPM blood sugar diagnostic (FreeStyle Lite Strips) As directed buspirone 10 mg PO TID calcium polycarbophil (Fiber-Lax) 1,250 mg (2 x 625 mg) PO QAM chlorthalidone 12.5 mg PO QAM codeine-guaifenesin 10-100 mg/5 mL 10 mL PO Q6H PRN cyclobenzaprine 10 mg PO TID PRN desvenlafaxine succinate ER (Pristiq) 100 mg PO QAM dulaglutide (Trulicity) mg subcut QWEEK empagliflozin (Jardiance) 25 mg PO QAM ibuprofen 600 mg PO Q6H PRN lancets (TRUEplus Lancets) As directed lidocaine 5% 1 patch topical DAILY lisinopril 40 mg PO QAM methylcellulose (laxative) (Citrucel) 1,000 mg (2 x 500 mg) PO DAILY mirtazapine 1 tab PO BEDTIME naproxen 500 mg PO BID PRN olopatadine 0.2% 1 drp ophthalmic (eye) DAILY omeprazole 20 mg PO QAM prazosin 4 caps PO BEDTIME rosuvastatin 40 mg PO BEDTIME sennosides (senna) 25.8 mg (3 x 8.6 mg) PO BEDTIME PRN HPI 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 The patients states the pain has been present for 3 weeks. He does not recall any incident that brought on the pain. He states the pain started in the upper back and started to go into the low back and hip and down the leg. He c/o pain walking long distances and walker up and down the stairs. He also c/o difficulty with lifting the leg up if he is getting in and out of the car. He states the pain is located more in the calf and he has pain with trying to walk on the right foot and his low back and hip pain has since resolved. [facility] Medical History (Updated 02/15/25 @ 13:20 by Angela Arredondo PA-C) HTN (hypertension) Intertrigo Anxiety Depression C. difficile colitis Diabetes Surgical History H/O colonoscopy Family History Mother Cancer Father Cancer Maternal Uncle Cancer Social History Alcohol intake: former Patient Tobacco Use Status: Never used Tobacco Current occupational status: unemployed Current occupation: rt handed Review of Systems Const All systems reviewed & are unremarkable except as noted in HPI and below Physical Exam Vital Signs: BMI result Body Mass Index 37.4 Const General: cooperative and no acute distress Orientation/consciousness: patient oriented x3 Resp Effort & Inspection: normal respiratory effort and able to speak in complete sentences Cardio Peripheral pulses: Peripheral pulses 2+ throughout Neuro General: patient oriented x3 Extrem Other: Right hip is normal to inspection and there is no tenderness to palpation or pain with range of motion. He has pain in the right gastroc muscle belly with no palpable defect. There is no tenderness behind the hamstrings of the right leg and there is no tenderness along the Achilles. No palpable defect in the Achilles. He has weakness with plantar flexion of the right foot. Neurovascularly intact. Results Reviewed Results Reviewed: X-rays of the right hip and L-spine obtained in the emergency department significant for mild arthritis. Assessment & Plan Assessment & Plan (1) Strain of right gastrocnemius muscle: Code(s): S86.111A - Strain of other muscle(s) and tendon(s) of posterior muscle group at lower leg level, right leg, initial encounter Category: Medical Plan: I explained to the patient the source of his pain is likely unrelated to his low back pain unless he was walking with an antalgic gait and suddenly stepped wrong or had uneven distribution of weight through the right lower extremity which caused a strain in the calf. He was placed in a tall boot weightbearing as tolerated. He can remove the boot for resting and hygiene and sleeping. An order for physical therapy was also placed to work on range of motion, strength and heel cord stretching exercises. He will continue to increase activities as tolerated and wean from the boot as instructed by physical therapy. If he has any concerns she will contact our office otherwise follow up as needed. Orders: Orders PT Evaluation and Treatment Today S86.111A - Strain of other muscle(s) and tendon(s) of posterior muscle group at lower leg level, right leg, initial encounter Coding Level of Care Code New Pt Level 3 (88854) Complex EM visit Add On G2211 Diagnoses Strain of right gastrocnemius muscle S86.111A
== END 2025-02-15 14:08 | disposition home or self-care (01) ==
LOC: HO.HOS 12:19
PROVIDERS: Visit Provider Physician Assistant
DX: S86.111A Strain of other muscle(s) and tendon(s) of posterior muscle group at lower leg level, right leg, initial encounter (principal)
CPT/HCPCS: 99203

== ENCOUNTER → 2025-02-15 12:18 | Outpatient (BNVA) | payer MEDICAID, SELFPAY | PROVIDERS: Visit Provider Physician Assistant | DX: S86.111A Strain of other muscle(s) and tendon(s) of posterior muscle group at lower leg level, right leg, initial encounter (principal); M25.551 Pain in right hip; M79.671 Pain in right foot | CPT/HCPCS: 99212 ==

== ENCOUNTER 2025-04-09 11:00 | Outpatient (RCR) | payer MEDICAID, SELFPAY ==
--- NOTE | 2025-03-05 14:15 | MHC.PT.EP ---
[facility] [place] Office [place] Office [place] Office [address] J[address] [phone] F: [phone] F: [phone] F: [phone] F: [phone] Physical Therapy Plan of Care Date of Evaluation: 03/05/25 Date of Surgery: Diagnosis: Strain of gastrocnemius, right leg Assessment: Pt is a 59 y/o male with PMHx significant for HTN and DMII who is referred to PT for eval and treat of Strain of gastrocnemius, right leg who reports about 4 weeks of R calf pain which is resulting in decreased tolerance for standing and walking for duration, negotiating stairs reciprocally, and performing heavier HH chores secondary to decreased R ankle strength and ROM, TTP of R calf mm body tissue, Pain with plantarflexion MMT, gait abnormality, pain possibly complicated by chronic R sided LBP with possible radicular Sx. Pt is deemed an appropriate candidate to receive skilled PT services to address their physical impairments in order to improve their functional ability. Frequency and Duration: The patient will be seen 2 x/ wk x 5 wks. Short Term Goals: initiate home program. Pt will improve pain to at most 1-3/10; initial 3-6/10. Snf Goals: I with home program. Pt will be able to walk 2 blocks with managed Sx w/o boot. Pt will be able to ascend and descend 1 fl of stairs with reciprocal fashion. Pt will improve R calf MMT by at least 1/2 MMT grade. Treatment Plan: Modalities to reduce pain, spasms and effusion. Manual therapy to restore motion and function. Therapeutic exercise to improve strength and flexibility. Neuromuscular re-education for posture and balance. Therapeutic activities to return to functional activities of daily living. Electronically signed by: Tanvir Garcia PT. Please sign and return to therapist. Thank you for your referral.
--- NOTE | 2025-04-09 16:32 | MHC.PT.DC ---
[facility] [place] Office [place] Office [place] Office [address] Jane Jara [address] [phone] F: [phone] F: [phone] F: [phone] F: [phone] Physical Therapy Discharge Report Diagnosis: Strain of gastrocnemius, right leg Date of Surgery: Date of Evaluation: 03/05/25 Date of Discharge: 04/09/25 Treatments to Date: 10 Cancellations to Date: No Shows to Date: Discharge Status: Improved Function Independent with HEP Recommend MD Follow-up Discharge Summary: Norbert has been an active and motivated participant in his therapy in and out of the clinic, he does persist with calf pain though this is significantly improved, he has become I with a simple home program, he has met some of his therapeutic goals and is in agreement with DC today. Unfortunately his calf pain has been complicated by sciatica/ lumbar radiculopathy which affects his R leg. The focus of his treatment was regarding his calf strain though we were also able to centralize his radiating pain to his back with simple ideas though persists with centralized LBP which limits his activity. Electronically signed by: Tanvir Garcia PT. Please sign and return to therapist. Thank you for your referral.
== END 2025-04-09 16:32 | disposition home or self-care (01) ==
LOC: HO.PT 11:00
PROVIDERS: PCP Registered Nurse; Visit Provider Physician Assistant
DX: S86.111D Strain of other muscle(s) and tendon(s) of posterior muscle group at lower leg level, right leg, subsequent encounter (principal)
CPT/HCPCS: 97035; 97110; 97140; 97161

== ENCOUNTER 2025-04-13 11:42 | Outpatient (REF) | payer MEDICAID, SELFPAY ==
[2025-04-13 13:47] LABS: Alanine Aminotransferase 20 U/L (0-40); Albumin Level 4.6 g/dL (3.5-5.0); Alkaline Phosphatase 83 U/L (39-117); Anion Gap 13 (12-20); Aspartate Amino Transferase 22 U/L (5-37); Blood Urea Nitrogen 13 mg/dL (9-16); Calcium 9.0 mg/dL (8.4-10.2); Carbon Dioxide 27 mmol/L (22-29); Chloride 106 mmol/L (96-108); Cholesterol 184 mg/dL (<200); Estimated Glomerular Filt Rate > 60; HDL Cholesterol 32 mg/dL (>40); Potassium 3.5 mmol/L (3.3-5.1); Sodium 142 mmol/L (135-145); Total Protein 7.5 g/dL (6.5-8.0); Triglycerides 115 mg/dL (<150)
[2025-04-13 14:52] LABS: Microalbum/Creatinine Ratio Ur 5.3 ug/mg cr (<30)
== END 2025-04-13 11:43 | disposition home or self-care (01) ==
LOC: HO.HHCL 11:42
PROVIDERS: PCP Registered Nurse; Visit Provider Registered Nurse
DX: E11.9 Type 2 diabetes mellitus without complications (principal)
CPT/HCPCS: 36415; 80053; 80061; 82043; 82570

== ENCOUNTER 2025-04-18 15:27 | Outpatient (AMB) | payer MEDICAID, SELFPAY ==
--- OUTSIDE RECORDS SUMMARY | 2025-04-18 15:29 | XMS_ITS | Encounter Summary ---
Author Organization [employer] Address [address] [facility] [address] [place] [address] Care Team Providers Care Regional Driver Name Role Phone Yolanda Card [facility] Primary Care Provider [phone] Encounter Details Date Type Department Care Team (Latest Contact Info) Description 02/26/2022 Abstract [facility] CONVERSIONS Dental, Provider, DDS Social History [...] Care Team (Late st Contact Info) Description 05/02/2025 10:30 AM EDT Office Visit [facility] [address] [place] [address] Eugenio Rice DDS [address] [place] [address] documented as of this encounter Visit Diagnoses Not on filedocumented in this encounter Care Teams Regional Driver Relationship Specialty Start Date End Date [place] [facility] [address] [place] [address] PCP - General Family Medicine 06/04/21 documented as of this encounter
[2025-04-18 15:40] VITALS: BP 150/83; PULSE 78; BMI 37.3
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
== END 2025-04-18 16:14 | disposition home or self-care (01) ==
LOC: HO.HGI 15:28
PROVIDERS: PCP Registered Nurse; Visit Provider Nurse Practitioner
DX: K59.04 Chronic idiopathic constipation (principal); K21.9 Gastro-esophageal reflux disease without esophagitis
CPT/HCPCS: 99213

== ENCOUNTER → 2025-04-18 15:27 | Outpatient (BNVA) | payer MEDICAID, SELFPAY | PROVIDERS: PCP Registered Nurse; Visit Provider Nurse Practitioner | DX: K59.04 Chronic idiopathic constipation (principal); K21.9 Gastro-esophageal reflux disease without esophagitis | CPT/HCPCS: 99212 ==

== ENCOUNTER → 2025-08-01 19:30 | Outpatient (BNV) | payer MEDICAID, SELFPAY | PROVIDERS: PCP Registered Nurse; Visit Provider Internal Medicine | DX: G47.33 Obstructive sleep apnea (adult) (pediatric) (principal); R06.83 Snoring; G47.61 Periodic limb movement disorder | CPT/HCPCS: 95810 ==

== ENCOUNTER → 2025-08-01 20:30 | Outpatient (REF) | payer MEDICAID, SELFPAY | LOC: HO.SL 20:30 | PROVIDERS: PCP Registered Nurse; Visit Provider Registered Nurse | DX: G47.33 Obstructive sleep apnea (adult) (pediatric) (principal); G47.61 Periodic limb movement disorder; R06.83 Snoring | CPT/HCPCS: 95810 ==